=== PATIENT | female | born 1945 | race Caucasian/White ===

== ENCOUNTER 2019-04-21 13:27 | Inpatient (IN) | payer OTHER ==
--- NOTE | 2019-04-21 14:22 | RAD REPORT ---
EXAM DESCRIPTION: RAD - Chest Single View - 04/21/2019 2:03 pm CLINICAL HISTORY: Cough, altered mental status COMPARISON: May 2010 TECHNIQUE: AP portable chest image was obtained 1357 hours . FINDINGS: Lung volumes are low compared to the prior study. This accentuates lung markings. Strandin g in the left base is more likely atelectasis than infiltrate. Failure or volume overload are doubtfu l. Heart and vasculature are normal. No measurable pleural effusion and no pneumothorax. No acute bony abnormality seen. No acute aortic findings suspected. IMPRESSION: Shallow inspiration film with left lung base stranding favored to be atelectasis. Interstitial pattern is accentuated by shallow inspiration. No significant edema, failure or volume o verload suspected.
[2019-04-21 14:37] LABS: Barbiturates NEGATIVE (NEGATIVE); Benzodiazepines NEGATIVE (NEGATIVE); Cocaine NEGATIVE (NEGATIVE); METHAMPHETAM NEGATIVE (NEGATIVE); Methadone NEGATIVE (NEGATIVE); Opiates NEGATIVE (NEGATIVE); Phencyclidine NEGATIVE (NEGATIVE); THC Cannibis NEGATIVE (NEGATIVE)
[2019-04-21 14:37] LABS: Urine Blood 2+ (NEG); Urine Glucose NEGATIVE (NEG); Urine Protein 2+ (NEG); Urine Specific Gravity 1.025 (1.005-1.030); Urine pH 5.5 (5.0-7.0)
--- NOTE | 2019-04-21 14:38 | RAD REPORT ---
EXAM DESCRIPTION: CT - Head Brain Wo Cont - 04/21/2019 2:32 pm CLINICAL HISTORY: Transient alteration of awareness COMPARISON: None. TECHNIQUE: Axial 5 mm thick images of the head were obtained without IV contrast. All CT scans are performed using dose optimization technique as appropriate and may include automated exposure control or mA/KV adjustment according to patient size. FINDINGS: No intracranial hemorrhage, mass, edema or shift of mid-line structures. No acute infarcti on changes seen. Mild chronic ischemic change and mild to moderate atrophy changes are present. Ventr icles are in proportion. Mastoid air cells and visualized portions of the paranasal sinuses are clear. No acute bony findings. IMPRESSION: No acute intracranial finding. Atrophy and chronic ischemic changes are present.
[2019-04-21 14:46] LABS: Absolute Lymphocytes (CBC) 1.8 K/uL (0.7-4.9); Basophils % 0.7 % (0-1.3); Hematocrit 38.5 % (36.0-45.0); Lymphocytes % 11.8 % (15.3-44.8); MPV 8.3 fL (7.6-11.3); RBC Red Blood Cell Count 4.27 M/uL (3.86-4.86)
[2019-04-21] MEDS ORDERED: THIAMINE 200 MG/2 ML INJ ONE (14:46)
[2019-04-21] MEDS ORDERED: CEFTRIAXONE/SWI 1gm 1 GM/10 ML SYR ONE (14:47)
[2019-04-21] MEDS ORDERED: FOLIC ACID 5 MG/ML VIAL ONE (14:47)
[2019-04-21] MEDS ORDERED: NA CHLORIDE 0.9% 1,000 ML ONE (14:47)
[2019-04-21 14:57] LABS: Protime INR 1.2
[2019-04-21 15:00] LABS: Urine Bacteria >50 /HPF (<20); Urine Culture Reflex Order NOT NEEDED; Urine Mucus 1+ /HPF (NONE SEEN)
[2019-04-21 15:06] LABS: ALT/SGPT 45 U/L (12-78); AST/SGOT 37 U/L (15-37); Albumin 2.9 g/dL (3.4-5.0); Alkaline Phosphatase 359 U/L (45-117); BUN Blood Urea Nitrogen 28 mg/dL (7-18); Bicarbonate 25 mmol/L (21-32); Bilirubin Direct 0.5 mg/dL (0-0.2); Bilirubin Total 0.9 mg/dL (0.2-1.0); Glucose Level 119 mg/dL (74-106); Magnesium 2.5 mg/dL (1.8-2.4); NT PRO-BNP 132 pg/mL (<125); Protein, Total 8.4 g/dL (6.4-8.2); Sodium Level 145 mmol/L (136-145); Troponin (Emerg Dept Use Only) < 0.02 ng/mL (0.0-0.045)
--- NOTE | 2019-04-21 16:07 | ER ---
Nurse's Notes [facility] Name: Haritha Mensah Age: 73 yrs Sex: Female : 1945 Arrival Date: 04/21/2019 Time: 13:28 Bed 20 Private MD: Mian Stuart E Diagnosis: Altered mental status, unspecified;Urinary tract infection, site not specified;Elevated white blood cell count;Pneumonia, unspecified organism-left base;Weakness;Volume depletion Presentation: 04/21 13:41 Presenting complaint: Child states: pt has had a change in behavior and mental status sg starting over the weekend, pt sister is primary development officer and states that the patient has been acting different since Thursday evening, pt has been solemn, unsure if the pt is taking too much of her medication, pt takes risperidone and trazadone PO at home. Transition of care: patient was not received from another setting of care. Onset of symptoms was April 21, 2019. Risk Assessment: Do you want to hurt yourself or someone else? Patient reports no desire to harm self or others. Initial Sepsis Screen: Does the patient meet any 2 criteria? No. Patient's initial sepsis screen is negative. Does the patient have a suspected source of infection? No. Patient's initial sepsis screen is negative. Care prior to arrival: None. 13:41 Method Of Arrival: Ambulatory sg 13:41 Acuity: OFE 3 sg Triage Assessment: 13:45 General: Appears in no apparent distress. comfortable, Behavior is calm, cooperative. bp Pain: Denies pain. EENT: No deficits noted. Neuro: Level of Consciousness is awake, alert, obeys commands, Oriented to person. Cardiovascular: Rhythm is sinus rhythm. Respiratory: No deficits noted. GI: No signs and/or symptoms were reported involving the gastrointestinal system. : No signs and/or symptoms were reported regarding the genitourinary system. Derm: No deficits noted. Musculoskeletal: No deficits noted. Historical: - Allergies: 13:45 No Known Allergies; sg - Home Meds: 13:45 Trazodone Oral [Active]; risperidone oral oral [Active]; sg - PSHx: 13:45 None; sg - Immunization history:: Adult Immunizations not up to date. - Social history:: Smoking status: Patient/guardian denies using tobacco. - Ebola Screening: : Patient negative for fever greater than or equal to 101.5 degrees Fahrenheit, and additional compatible Ebola Virus Disease symptoms Patient denies exposure to infectious person Patient denies travel to an Ebola-affected area in the 21 days before illness onset No symptoms or risks identified at this time. - Family history:: not pertinent. Screenin:55 Abuse screen: Denies threats or abuse. Denies injuries from another. Nutritional bp screening: No deficits noted. Tuberculosis screening: No symptoms or risk factors identified. Fall Risk None identified. Assessment: 13:55 General: SEE TRIAGE NOTE. bp 14:32 Reassessment: PT TO CT WITH HEAD OF MARKETING ANALYTICS. bp 16:00 Reassessment: ALL INITIAL ORDERS RESULTED, PROVIDER INFORMED. bp 17:00 Reassessment: ADMIT IN PROCESS, ABX INFUSING. bp 18:04 Reassessment: ADMIT MD AT B/S. bp 19:45 General: Appears in no apparent distress. comfortable, Behavior is calm, cooperative, jd3 awaiting admission. Pain: Denies pain. Neuro: Level of Consciousness is awake, alert, confused, Oriented to person, place. Cardiovascular: Denies chest pain, Capillary refill < 3 seconds Patient's skin is warm and dry. Respiratory: Airway is patent Respiratory effort is even, unlabored, Respiratory pattern is regular, symmetrical, Denies cough, shortness of breath. GI: No signs and/or symptoms were reported involving the gastrointestinal system. : No signs and/or symptoms were reported regarding the genitourinary system. EENT: No signs and/or symptoms were reported regarding the EENT system. Derm: Skin is intact, Skin is dry, Skin is normal, Skin temperature is warm. Musculoskeletal: Circulation, motion, and sensation intact. Range of motion: intact in all extremities. 20:49 Reassessment: Patient appears in no apparent distress at this time. No changes from jd3 previously documented assessment. Patient and/or family updated on plan of care and expected duration. Pain level reassessed. 21:45 Reassessment: Patient appears in no apparent distress at this time. No changes from jd3 previously documented assessment. Patient and/or family updated on plan of care and expected duration. Pain level reassessed. 22:45 Reassessment: Patient appears in no apparent distress at this time. No changes from jd3 previously documented assessment. Patient and/or family updated on plan of care and expected duration. Pain level reassessed. 23:04 Reassessment: Patient appears in no apparent distress at this time. No changes from jd3 previously documented assessment. Patient and/or family updated on plan of care and expected duration. Pain level reassessed. pt charting continued in [facility]. Vital Signs: 13:41 BP 142 / 77; Pulse 87; Resp 18; Temp 98.7; Pulse Ox 100% on R/A; sg 14:31 BP 148 / 80; Pulse 61; Resp 17; Pulse Ox 97% ; bp 15:30 BP 157 / 77; Pulse 99; Resp 16; Pulse Ox 98% ; bp 18:03 BP 140 / 73; Pulse 102; Resp 16 S; Pulse Ox 96% on R/A; jl7 20:02 BP 143 / 67; Pulse 100; Resp 18 S; Pulse Ox 97% on R/A; jd3 ED Course: 13:28 Patient arrived in ED. am2 13:29 Mian Stuart MD is Private Physician. am2 13:38 Milton Alberts MD is Attending Physician. silvia 13:41 Arm band placed on. sg 13:42 Rick Bowen, RN is Primary Nurse. bp 13:43 Triage completed. sg 13:55 Patient has correct armband on for positive identification. Bed in low position. Call bp light in reach. Side rails up X2. Adult w/ patient. 14:03 XRAY Chest (1 view) In Process Unspecified. EDMS 14:03 X-ray completed. Portable x-ray completed in exam room. Patient tolerated procedure jb2 well. 14:24 EKG done, by ED staff, reviewed by Milton Alberts MD. tc 14:30 Inserted saline lock: 22 gauge in right forearm, using aseptic technique. Blood bp collected. 14:32 CT Head Brain wo Cont In Process Unspecified. EDMS 16:03 Mary Baig MD is Hospitalizing Provider. silvia 23:03 No provider procedures requiring assistance completed. Patient admitted, IV remains in jd3 place. 04/22 06:53 Primary Nurse role handed off by Rick Bowen, RN 09:50 Diet: Patient given a regular meal tray. 5 Administered Medications: 04/21 14:30 Drug: NS 0.9% 1000 ml Route: IV; Rate: 1 bolus; Site: right forearm; bp 23:45 Follow up: Response: No adverse reaction; IV Status: Completed infusion 14:30 Drug: foLIC Acid 1 mg Route: IVPB; Site: right forearm; bp 23:45 Follow up: Response: No adverse reaction; IV Status: Completed infusion 14:30 Drug: Thiamine 100 mg Route: IV; Rate: bolus; Site: right forearm; bp 23:45 Follow up: Response: No adverse reaction; IV Status: Completed infusion 14:30 Drug: Rocephin 1 grams Route: IV; Rate: per protocol; Site: right forearm; bp 23:44 Follow up: Response: No adverse reaction; IV Status: Completed infusion 16:10 Drug: Xopenex 1.25 mg Route: Inhalation; bp 16:10 Drug: AtroVENT Aerosol 0.5 mg Route: Inhalation; bp 16:50 Drug: Zithromax 500 mg Route: IVPB; Infused Over: 1 hrs; Site: right forearm; bp 23:39 Follow up: Response: No adverse reaction; IV Status: Completed infusion Outcome: 16:06 Decision to Hospitalize by Provider. silvia 23:03 Admitted to ER Hold. Please see [facility] for further documentation. jd3 23:03 Condition: stable 23:03 Instructed on the need for admit, Demonstrated understanding of instructions. 04/22 12:40 Patient left the ED. Signatures: Dispatcher [employer] EDMS Zacarias Sanders, RN Milton Conde MD MD cha Buechter, Jesse jb2 Gretel Roberston, automotive tire worker EKG Ttc Miladis Schilling RN RN Sophie Cadlwell [facility] Shelly Rg RN RN jl7 Xiomara Rivas Caitlin Guillory Valerio Figueroa RN RN jd3 Peltier, Brian, RN RN bp Botello, Elizabeth eb Corrections: (The following items were deleted from the chart) 03:46 04/21 19:45 Neuro: Level of Consciousness is awake, alert, confused, Oriented to jd3 person, jd3
--- NOTE | 2019-04-21 16:07 | EDPHYS ---
Physician Documentation [facility] Name: Haritha Mensah Age: 73 yrs Sex: Female : 1945 Arrival Date: 04/21/2019 Time: 13:28 Bed 20 Private MD: Mian Stuart E ED Physician Milton Alberts HPI: 04/21 14:18 This 73 yrs old Female presents to ER via Ambulatory with complaints of silvia behavioral change. 14:18 ams, weakness. The patient presents with confusion, trouble concentrating. Onset: The silvia symptoms/episode began/occurred 2 day(s) ago. Possible causes: unknown. Associated signs and symptoms: The patient has no apparent associated signs or symptoms. Current symptoms: In the emergency department the patient's symptoms are unchanged from the initial presentation. Patient's baseline: Neuro: alert and fully oriented. Severity of symptoms: At their worst the symptoms were mild moderate in the emergency department the symptoms are unchanged. Historical: - Allergies: 13:45 No Known Allergies; sg - Home Meds: 13:45 Trazodone Oral [Active]; risperidone oral oral [Active]; sg - PSHx: 13:45 None; sg - Immunization history:: Adult Immunizations not up to date. - Social history:: Smoking status: Patient/guardian denies using tobacco. - Ebola Screening: : Patient negative for fever greater than or equal to 101.5 degrees Fahrenheit, and additional compatible Ebola Virus Disease symptoms Patient denies exposure to infectious person Patient denies travel to an Ebola-affected area in the 21 days before illness onset No symptoms or risks identified at this time. - Family history:: not pertinent. ROS: 14:18 Constitutional: Negative for fever, chills, and weight loss, Eyes: Negative for injury, silvia pain, redness, and discharge, ENT: Negative for injury, pain, and discharge, Neck: Negative for injury, pain, and swelling, Cardiovascular: Negative for chest pain, palpitations, and edema, Respiratory: Negative for shortness of breath, cough, wheezing, and pleuritic chest pain, Abdomen/GI: Negative for abdominal pain, nausea, vomiting, diarrhea, and constipation, Back: Negative for injury and pain, : Negative for injury, bleeding, discharge, and swelling, MS/Extremity: Negative for injury and deformity, Skin: Negative for injury, rash, and discoloration, Psych: Negative for depression, anxiety, suicide ideation, homicidal ideation, and hallucinations, Allergy/Immunology: Negative for hives, rash, and allergies, Endocrine: Negative for neck swelling, polydipsia, polyuria, polyphagia, and marked weight changes. 14:18 Neuro: Positive for altered mental status, weakness. Exam: 14:18 Constitutional: This is a well developed, well nourished patient who is awake, alert, silvia and in no acute distress. Head/Face: Normocephalic, atraumatic. Eyes: Pupils equal round and reactive to light, extra-ocular motions intact. Lids and lashes normal. Conjunctiva and sclera are non-icteric and not injected. Cornea within normal limits. Periorbital areas with no swelling, redness, or edema. ENT: Nares patent. No nasal discharge, no septal abnormalities noted. Tympanic membranes are normal and external auditory canals are clear. Oropharynx with no redness, swelling, or masses, exudates, or evidence of obstruction, uvula midline. Mucous membranes moist. Neck: Trachea midline, no thyromegaly or masses palpated, and no cervical lymphadenopathy. Supple, full range of motion without nuchal rigidity, or vertebral point tenderness. No Meningismus. Chest/axilla: Normal chest wall appearance and motion. Nontender with no deformity. No lesions are appreciated. Cardiovascular: Regular rate and rhythm with a normal S1 and S2. No gallops, murmurs, or rubs. Normal PMI, no JVD. No pulse deficits. Respiratory: Lungs have equal breath sounds bilaterally, clear to auscultation and percussion. No rales, rhonchi or wheezes noted. No increased work of breathing, no retractions or nasal flaring. Abdomen/GI: Soft, non-tender, with normal bowel sounds. No distension or tympany. No guarding or rebound. No evidence of tenderness throughout. Back: No spinal tenderness. No costovertebral tenderness. Full range of motion. Skin: Warm, dry with normal turgor. Normal color with no rashes, no lesions, and no evidence of cellulitis. MS/ Extremity: Pulses equal, no cyanosis. Neurovascular intact. Full, normal range of motion. Neuro: Awake and alert, GCS 15, oriented to person, place, time, and situation. Cranial nerves II-XII grossly intact. Motor strength 5/5 in all extremities. Sensory grossly intact. Cerebellar exam normal. Normal gait. Psych: Awake, alert, with orientation to person, place and time. Behavior, mood, and affect are within normal limits. Vital Signs: 13:41 BP 142 / 77; Pulse 87; Resp 18; Temp 98.7; Pulse Ox 100% on R/A; sg 14:31 BP 148 / 80; Pulse 61; Resp 17; Pulse Ox 97% ; bp 15:30 BP 157 / 77; Pulse 99; Resp 16; Pulse Ox 98% ; bp 18:03 BP 140 / 73; Pulse 102; Resp 16 S; Pulse Ox 96% on R/A; jl7 20:02 BP 143 / 67; Pulse 100; Resp 18 S; Pulse Ox 97% on R/A; jd3 MDM: 13:38 Patient medically screened. [facility] 14:25 Data reviewed: vital signs, nurses notes, lab test result(s), EKG, radiologic studies, [facility] CT scan, plain films. 04/21 13:40 Order name: Basic Metabolic Panel; Complete Time: 15:59 [facility] 04/21 13:40 Order name: CBC with Diff; Complete Time: 15:59 [facility] 04/21 13:40 Order name: LFT's; Complete Time: 15:59 [facility] 04/21 13:40 Order name: Magnesium; Complete Time: 15:59 [facility] 04/21 13:40 Order name: NT PRO-BNP; Complete Time: 15:59 [facility] 04/21 13:40 Order name: PT-INR; Complete Time: 15:59 [facility] 04/21 13:40 Order name: Troponin (emerg Dept Use Only); Complete Time: 15:59 [facility] 04/21 13:40 Order name: Acetaminophen; Complete Time: 15:59 [facility] 04/21 13:40 Order name: ETOH Level; Complete Time: 15:59 [facility] 04/21 13:40 Order name: Ptt, Activated; Complete Time: 15:59 [facility] 04/21 13:40 Order name: Salicylate; Complete Time: 15:59 [facility] 04/21 13:40 Order name: Urine Drug Screen; Complete Time: 15:59 [facility] 04/21 13:40 Order name: Urine Culture [facility] 04/21 14:12 Order name: Urine Microscopic Only; Complete Time: 15:59 04/21 13:40 Order name: XRAY Chest (1 view); Complete Time: 15:59 [facility] 04/21 13:40 Order name: EKG; Complete Time: 13:41 [facility] 04/21 13:40 Order name: CT Head Brain wo Cont; Complete Time: 15:59 [facility] 04/21 14:29 Order name: Urine Dipstick--Ancillary (enter results); Complete Time: 15:59 eb 04/22 06:01 Order name: Basic Metabolic Panel EDMD 04/22 06:32 Order name: Blood Culture EDMD 04/22 06:41 Order name: CBC with Automated Diff EDMS 04/22 06:44 Order name: CBC Smear Scan EDMD 04/22 10:06 Order name: Magnesium EDMD 04/21 13:40 Order name: Cardiac monitoring; Complete Time: 14:30 [facility] 04/21 13:40 Order name: EKG - Nurse/Tech; Complete Time: 14:30 [facility] 04/21 13:40 Order name: IV Saline Lock; Complete Time: 14:31 [facility] 04/21 13:40 Order name: Labs collected and sent; Complete Time: 14:31 [facility] 04/21 13:40 Order name: O2 Per Protocol; Complete Time: 13:43 [facility] 04/21 13:40 Order name: O2 Sat Monitoring; Complete Time: 13:43 [facility] 04/21 13:40 Order name: Urine Dipstick-Ancillary (obtain specimen); Complete Time: 14:30 [facility] 04/22 06:53 Order name: Labs - recollect needed: green top recollect; Complete Time: 09:34 ar5 Administered Medications: 14:30 Drug: NS 0.9% 1000 ml Route: IV; Rate: 1 bolus; Site: right forearm; bp 23:45 Follow up: Response: No adverse reaction; IV Status: Completed infusion 14:30 Drug: foLIC Acid 1 mg Route: IVPB; Site: right forearm; bp 23:45 Follow up: Response: No adverse reaction; IV Status: Completed infusion 14:30 Drug: Thiamine 100 mg Route: IV; Rate: bolus; Site: right forearm; bp 23:45 Follow up: Response: No adverse reaction; IV Status: Completed infusion 14:30 Drug: Rocephin 1 grams Route: IV; Rate: per protocol; Site: right forearm; bp 23:44 Follow up: Response: No adverse reaction; IV Status: Completed infusion 16:10 Drug: Xopenex 1.25 mg Route: Inhalation; bp 16:10 Drug: AtroVENT Aerosol 0.5 mg Route: Inhalation; bp 16:50 Drug: Zithromax 500 mg Route: IVPB; Infused Over: 1 hrs; Site: right forearm; bp 23:39 Follow up: Response: No adverse reaction; IV Status: Completed infusion Disposition: 04/21/19 16:06 Hospitalization ordered by Mary Baig for Inpatient Admission. Preliminary diagnosis are Altered mental status, unspecified, Urinary tract infection, site not specified, Elevated white blood cell count, Pneumonia, unspecified organism - left base, Weakness, Volume depletion. - Bed requested for Telemetry/MedSurg (Inpatient). - Status is Inpatient Admission. hb - Condition is Fair. - Problem is new. - Symptoms have improved. UTI on Admission? Yes Signatures: Dispatcher [employer] EDMS Zacarias Sanders RN RN Milton Alberts MD MD cha Garcia, Cindy, RN RN Miladis Schilling RN RN hb Peltier, Brian, RN RN Sarah Vazquez Autumn [employer] [facility] Caitlin Neely Corrections: (The following items were deleted from the chart) 16:07 16:06 Hospitalization Ordered by Mary Baig MD for Inpatient Admission. Preliminary [facility] diagnosis is Altered mental status, unspecified; Urinary tract infection, site not specified; Elevated white blood cell count; Pneumonia, unspecified organism - left base. Bed requested for Telemetry/MedSurg (Inpatient). Status is Inpatient Admission. Condition is Fair. Problem is new. Symptoms have improved. UTI on Admission? Yes. [facility] 22:04 16:07 04/21/2019 16:06 Hospitalization Ordered by Mary Baig MD for Inpatient cg Admission. Preliminary diagnosis is Altered mental status, unspecified; Urinary tract infection, site not specified; Elevated white blood cell count; Pneumonia, unspecified organism - left base; Weakness; Volume depletion. Bed requested for Telemetry/MedSurg (Inpatient). Status is Inpatient Admission. Condition is Fair. Problem is new. Symptoms have improved. UTI on Admission? Yes. silvia 04/22 11:25 04/21 22:04 04/21/2019 16:06 Hospitalization Ordered by Mary Baig MD for Inpatient eb Admission. Preliminary diagnosis is Altered mental status, unspecified; Urinary tract infection, site not specified; Elevated white blood cell count; Pneumonia, unspecified organism - left base; Weakness; Volume depletion. Bed requested for [facility] ER HOLD. Status is Inpatient Admission. Condition is Fair. Problem is new. Symptoms have improved. UTI on Admission? Yes. cg 04/22 11:25 11:25 04/21/2019 16:06 Hospitalization Ordered by Mary Baig MD for Inpatient eb Admission. Preliminary diagnosis is Altered mental status, unspecified; Urinary tract infection, site not specified; Elevated white blood cell count; Pneumonia, unspecified organism - left base; Weakness; Volume depletion. Bed requested for Telemetry/MedSurg (Inpatient). Status is Inpatient Admission. Condition is Fair. Problem is new. Symptoms have improved. UTI on Admission? Yes. eb 12:40 11:25 04/21/2019 16:06 Hospitalization Ordered by Mary Baig MD for Inpatient hb Admission. Preliminary diagnosis is Altered mental status, unspecified; Urinary tract infection, site not specified; Elevated white blood cell count; Pneumonia, unspecified organism - left base; Weakness; Volume depletion. Bed requested for Telemetry/MedSurg (Inpatient). Status is Inpatient Admission. Condition is Fair. Problem is new. Symptoms have improved. UTI on Admission? Yes. eb
[2019-04-21] MEDS ORDERED: IPRATROPIUM BROM 0.5MG/2.5ML ONE (16:13)
[2019-04-21] MEDS ORDERED: LEVALBUTEROL 1.25 MG/3 ML NEB ONE (16:13)
[2019-04-21] MEDS ORDERED: AZITHROMYCIN IV 500 MG in NA CHLORIDE 0.9% 250 ML IVPB ONE (17:00)
--- NOTE | 2019-04-21 17:11 | EKG ---
Test Date: 2019-04-21 Test Time: 14:06:35 Composing Room Machinist Apprentice: NUHA MEASUREMENT RESULTS: Intervals: Rate: 111 WY: 164 QRSD: 70 QT: 324 QTc: 440 [place]: P: 69 WY: 164 QRS: 87 T: 55 INTERPRETIVE STATEMENTS: Sinus tachycardia with occasional premature ventricular complexes RSR' or QR pattern in V1 suggests right ventricular conduction delay Borderline ECG Compared to ECG 05/26/2010 12:18:53 Ventricular premature complex(es) now present RSR' in V1 or V2 now present Sinus rhythm no longer present First degree AV block no longer present Right-axis deviation no longer present Electronically Signed On 04-21-19 17:10:51 MANAGER SITE by Sherman Benito
[2019-04-21] MEDS: NA CHLORIDE 0.9% 1,000 ML IV SCH (23:42)
[2019-04-21] MEDS ORDERED: ONDANSETRON 4 MG/2 ML VIAL IV PRN (23:42)
[2019-04-22] MEDS ORDERED: NA CHLORIDE 0.9% 1,000 ML ONE ×2 (00:47→13:09)
--- NOTE | 2019-04-22 02:04 | HP ---
Date of Admission: 04/21/2019 Consultants: Cj Cooper DPM with Podiatry. Chief Complaint: Altered mental status, generalized weakness. Code Status: Full. Primary Care Physician: Dr. Stuart. History Of Present Illness: Patient is a 73-year-old female with past medical history of insomnia and psychiatric illness in the past, comes in with generalized weakness, decreased p.o. intake and confusion. Patient was not eating her breakfast, had not gotten out of bed, felt weak, usually very active , independent, and walks to the yard, has been ongoing for the past 2 days. The patient's symptoms are constant, moderate, progressively worsening. Patient has not had any syncopal episodes. No fever, chills, nausea, or vomiting. Patient does report some generalized malaise, is very hard of hearing. Lives with her daughter. Does not use any assistive ambulatory devices. Does not have any falls. Upon arrival to the ER, her workup revealed UA that was positive. Her white blood cell count was 15,000. Her head CT scan was negative for any acute changes. Her chest x-ray showed left lung base stranding favored to be atelectasis. The patient was started on IV antibiotics and was referred for admission. When seen in the ER, she was awake, alert, and oriented x3, somewhat ill-appearing female, accompanied by her family members. Past Medical History: Insomnia, hard of hearing, hearing loss. Previous psych history, unclear, is on Risperdal. Past Surgical History: Bilateral hip replacements. Allergies: NO KNOWN DRUG ALLERGIES. Medications: The patient takes trazodone 50 mg daily and Risperdal 1 mg nightly. Social History: Patient denies any tobacco use, alcohol use, or illicit drug use. Patient is independent in her activities of daily living, does not use any assistive ambulatory devices. Lives with her daughter. Family History: No premature coronary artery disease in the family. Review of Systems: Ten-point system reviewed, negative except as per HPI. Physical Examination: Vital Signs: Blood pressure 142/77, pulse 88, respirations 18, temperature 98.7 , O2 100% on room air. General: Awake, alert, and oriented x3, in some mild distress, ill-appearing elderly female. HEENT: Normocephalic, atraumatic. PERRLA. EOMI. Dry mucous membranes. Oropharynx is clear. Poor dentition. Conjunctivae are anicteric. Neck: Supple. No JVD. Trachea midline. CV: S1, S2. Regular rate and rhythm. Peripheral pulses present. Respiratory: Diminished breath sounds at the bases, left worse than right. No wheezing or stridor. No use of accessory muscles. Gastrointestinal: Abdomen is soft, nontender, nondistended. Positive bowel sounds. No guarding or rigidity. Extremities: No clubbing, cyanosis. Patient has trace pedal edema. No calf tenderness. Neuro: Cranial nerves 2 through 12 intact grossly. No focal neurological deficit. Speech is somewhat altered, however, that is at her baseline. Skin: Patient has excoriated skin in the lower extremities. Has mild erythema and ulceration of the second right toe, likely from chronic abrasion from her first toenail. No tenderness to palpation. Psych: Mood is okay. Affect is full. Insight and judgment are good. Laboratory Data: INR 1.20. Sodium 145, potassium 4, chloride 113, CO2 of 25, BUN 28, creatinine 0.92, glucose 119, calcium 8.5, magnesium 2.5, alkaline phosphatase 359. Troponin less than 0.02. BNP 132. WBC 15.2, H and H 12.7 and 38.5, platelets 269, neutrophils 76%. UA, positive nitrite, 1+ leukocyte esterase, 5-10 rbc's, 10-20 wbc. Urine bacteria greater than 50, 10-20 squamous epithelial cells. UDS is negative. Tylenol level is less than 2. Imaging Studies: CT scan of the head shows no acute intracranial finding, atrophy and chronic ischemic changes are present. Chest x-ray personally reviewed shows shallow inspiration film with left lung base stranding favored to be atelectasis. Interstitial pattern is accentuated by shallow inspiration. No significant edema, failure, or volume overload pattern. EKG shows sinus tachycardia with occasional premature ventricular complexes, rate of 111. Assessment: A 73-year-old female with, 1. Acute metabolic encephalopathy, likely related to urinary tract infection. Patient is oriented, however was somewhat confused and lethargic at home. Should see improvement with treatment of the underlying etiology, which is the urinary tract infection. Her head CT scan is negative for any acute bleed or cerebrovascular accident. 2. Acute cystitis with hematuria. We will start her on IV antibiotics. We will obtain urine culture. 3. Left lower lobe pneumonia. We will cover with antibiotics for now, may be acute bronchitis. We will obtain blood cultures. Chest x-ray favors atelectasis. We will provide incentive spirometry as well. De-escalate antibiotics once cultures are negative. 4. Insomnia. Continue trazodone. 5. Bilateral hearing loss. 6. Leukocytosis with neutrophilia, likely from urinary tract infection and possible pneumonia. 7. Hypermagnesemia. We will continue to monitor. Plan: Admit patient to Med-Surg, place as inpatient. Length of stay greater than 2 midnights. We will have PT see the patient. Aspiration precautions, fall precautions, O2 as needed. We will resume her Risperdal at night. /EMERALD Voice ID: [id number] MTDD
[2019-04-22] MEDS ORDERED: CEFTRIAXONE/SWI 1gm 1 GM/10 ML SYR ONE (04:44)
[2019-04-22] MEDS: CEFTRIAXONE/SWI 1gm 1 GM/10 ML SYR IV SCH ×2 (04:53→17:34)
[2019-04-22 06:01] LABS: Potassium 4.2 mmol/L (3.5-5.1)
[2019-04-22 06:16] LABS: Absolute Lymphocytes (CBC) 1.6 K/uL (0.7-4.9); Basophils % 0.7 % (0-1.3); Lymphocytes % 11.5 % (15.3-44.8)
[2019-04-22 06:41] LABS: Urine White Blood Cell Casts OK
[2019-04-22 06:42] LABS: Blood Morphology Comment NOT SEEN (NOT SEEN); Platelet Estimate ADEQ
[2019-04-22] MEDS ORDERED: PNEUMOCOCCAL VACCINE 0.5 ML IMVAC ONE (08:00)
[2019-04-22] MEDS ORDERED: INFLUENZA VACCINE (for 3y+) 0.5 ML DOSE IMVAC ONE (08:00)
[2019-04-22] MEDS ORDERED: ENOXAPARIN 40 MG/0.4 ML SQ ONE (08:40)
--- NOTE | 2019-04-22 08:59 | P.CNS ---
Date of Consult: 04/22/19 Reason for Consult: wound right second digit Requesting Physician: Mary Baig Chief Complaint: right second digit wound with thickened toenails Allergies No Known Allergies Allergy (Verified 04/21/19 23:40) Home medications list reviewed: Yes - Past Medical/Surgical History Diabetic: No -: Dementia - Social History Place of Residence: Home Review of Systems 10-point ROS is otherwise unremarkable Physical Examination Temp Pulse Resp BP Pulse Ox 99.2 F 87 16 144/68 H 97 04/22/19 08:00 04/22/19 08:00 04/22/19 08:00 04/22/19 08:00 04/22/19 08:00 General: Alert, In no apparent distress, Oriented x3 Cardiovascular: No edema, Abnormal pulses (palpable dorsalis pedis, nonpalpable posterior tibial pulse bilateral) Capillary refill: <2 Seconds Musculoskeletal: No clubbing, No swelling, No contractures, No erythema, No tenderness, No warmth Integumentary: Other (thickened elongated toenails with subungual debris x 10. Superficial ulceration dorsum right second digit due to right hallux toenail rubbing on the area. Wound has no purulence, mild erythema periwound, no probing, no undermining noted) Neurological: Sensation intact Laboratory Data (last 24 hrs) 04/21/19 14:30: PT 14.1 H, INR 1.20, APTT 30.5 04/21/19 14:30: WBC 15.2 H, Hgb 12.7, Hct 38.5, Plt Count 269 04/21/19 14:30: Sodium 145, Potassium 4.0, BUN 28 H, Creatinine 0.92, Glucose 119 H, Magnesium 2.5 H, Total Bilirubin 0.9, AST 37, ALT 45, Alkaline Phosphatase 359 H - Problems (1) Tinea unguium Current Visit: Yes Status: Acute (2) Non-pressure chronic ulcer of other part of right foot limited to breakdown of skin Current Visit: Yes Status: Acute Conclusions/Impression: Nails debrided at bedside. ROBYN with bandage daily right second digit wound. Upon discharge patient to follow up with Dr. Cooper for onychomycosis treatment and wound care Physician Review: Patient Assessed, Agree with Above Assessment and Plan
[2019-04-22] MEDS: ENOXAPARIN 40 MG/0.4 ML SQ SCH (09:00)
[2019-04-22] MEDS: NA CHLORIDE 0.9% 1,000 ML IV SCH (13:35)
[2019-04-22] MEDS: ACETAMINOPHEN 500 MG TAB PO PRN ×2 (14:23→21:12)
[2019-04-22] MEDS ORDERED: TRAMADOL HCL 50 MG TAB PO PRN (15:14)
--- NOTE | 2019-04-22 16:49 | PN ---
Date of Progress Note: 04/22/2019 Subjective: Patient seen and examined. Chart reviewed and case discussed with RN. Patient states s he is feeling better today. No acute events overnight. Daughter at the bedside. Treatment plan exp lained. All questions answered. Medications: List reviewed. Physical Examination: Vital Signs: Temperature 99.2, heart rate 87, blood pressure 144/68, respirations 16, O2 97% on room air. General: Awake, alert, oriented x3, not in any acute distress. Ill-appearing female, elderly. CV: S1, S2. Regular rate and rhythm. Peripheral pulses present. Respiratory: Moving air well bilaterally. No wheezing or stridor. No use of accessory muscles. Gastrointestinal: Abdomen is soft, nontender, nondistended. Positive bowel sounds. Extremities: No clubbing, cyanosis. Patient has some mild pedal edema. Neurologic: Nonfocal. Cranial nerves 2 through 12 intact grossly. Speech is altered, but is chroni c. No acute changes. Skin: Patient has non-pressure ulcer of the second toe, right foot with some mild surrounding erythe ma. No drainage. Musculoskeletal: Tenderness to palpation on the left bottom rib. Laboratory Data: Sodium 143, potassium 4.2, chloride 116, CO2 20, BUN 26, creatinine 0.73, glucose 9 5, calcium 8.6, magnesium 2.4. WBC 14.1, H and H 13.4 and 41, platelets 225, neutrophils 77%. Blood cultures, no growth to date. Sputum cultures, pending. Urine culture, growing 100,000 colony-formi ng units of mixed oz. Assessment And Plan: 73-year-old female with: 1.Acute metabolic encephalopathy secondary to urinary tract infection. Patient now back to her base line and oriented x3, likely secondary to her urinary tract infection. 2.Acute cystitis with hematuria. We will continue IV antibiotics. Culture showed mixed oz. How ever, given her presenting symptoms, elevated white blood cell count, we will continue with treatment for now and await final culture results. 3.Left lower lobe pneumonia. Continue antibiotics. Follow up on cultures. No growth to date. Rep eat chest x-ray in a.m. Continue with incentive spirometry. 4.Hypomagnesemia, improved. 5.Insomnia. Continue trazodone. 6.Bilateral hearing loss. 7.Hypomagnesemia, corrected. 8.Deep vein thrombosis prophylaxis with Lovenox. Plan: Continue IV fluid hydration. Continue with PT eval. Likely discharge in the next 24-48 hours , depending on clinical response, culture results and improvement. SA/MODL Voice ID: [id number] Report ID: [id number]
[2019-04-22] MEDS ORDERED: AZITHROMYCIN IV 500 MG in NA CHLORIDE 0.9% 250 ML IVPB SCH (17:00)
[2019-04-22] MEDS ORDERED: RISPERIDONE 1 MG TABLET PO SCH ×2 (17:30→21:00)
[2019-04-22] MEDS ORDERED: TRAZODONE 50 MG TABLET PO SCH ×2 (17:30→21:00)
[2019-04-22 17:42] VITALS: BMI 24.9
[2019-04-22 21:18] VITALS: O2SAT 92
[2019-04-23] MEDS: NA CHLORIDE 0.9% 1,000 ML IV SCH (04:48)
[2019-04-23] MEDS: CEFTRIAXONE/SWI 1gm 1 GM/10 ML SYR IV SCH (05:00)
[2019-04-23 06:18] LABS: Absolute Lymphocytes (CBC) 1.6 K/uL (0.7-4.9); Basophils % 0.5 % (0-1.3); Hematocrit 38.4 % (36.0-45.0); Lymphocytes % 11.9 % (15.3-44.8); MPV 8.3 fL (7.6-11.3); RBC Red Blood Cell Count 4.22 M/uL (3.86-4.86)
[2019-04-23 06:27] LABS: BUN Blood Urea Nitrogen 22 mg/dL (7-18); Bicarbonate 24 mmol/L (21-32); Glucose Level 94 mg/dL (74-106); Potassium 3.7 mmol/L (3.5-5.1); Sodium Level 145 mmol/L (136-145)
[2019-04-23] MEDS: ENOXAPARIN 40 MG/0.4 ML SQ SCH (08:46)
[2019-04-23] MEDS ORDERED: POTASSIUM CL SA 10 MEQ TAB PO ONE (09:00)
[2019-04-23 13:03] VITALS: BP 134/63; TEMP 98.2
--- NOTE | 2019-04-24 03:09 | DS ---
Date of Discharge: 04/23/2019 Consultants: Dr. Cooper with Podiatry, bedside procedure by him on the first toe, right foot. Admitting Diagnoses: 1.Acute metabolic encephalopathy secondary to urinary tract infection. 2.Acute cystitis with hematuria. 3.Left lower lobe pneumonia. 4.Insomnia. 5.Bilateral hearing loss. 6.Leukocytosis with neutrophilia. 7.Hypomagnesemia. Discharge Diagnoses: 1.Acute metabolic encephalopathy secondary to urinary tract infection, resolved. 2.Acute cystitis with hematuria, cultures negative. 3.Left lower lobe pneumonia, improved. 4.Insomnia, on trazodone. 5.Bilateral hearing loss. 6.Hypomagnesemia, replaced. Hospital Course: Patient is a 73-year-old female who was admitted to the hospital for altered mental status. She was found to have UTI and possible pneumonia. Patient's head CT scan was negative for any acute changes. Patient did have elevated white blood cell count 15,000 with left shift. The pat ient's white blood cell count improved with treatment. Her cultures did not show any growth to date. Urine culture grew out 100,000 colony-forming units of mixed oz. However, given her symptoms wh ite count and acute confusion related to the cystitis, she will need to complete treatment. Her bloo d cultures were also negative. Her oxygenation improved. She did not require any supplemental oxyge n. Did not have any fevers. Patient was able to ambulate without assist. She was doing well. Cond ition improved. She was then cleared for discharge and was sent home in a stable condition. Activity: As tolerated. Medications: As per medication reconciliation list. Followup: Follow up with primary care physician in 2-3 days. Return to ER for worsening condition. Medications: As per medication reconciliation list. Physical Examination: General: Awake, alert, oriented x3. No acute distress. CV: S1, S2. No murmurs. Respiratory: Moving air well bilaterally. No wheezing. Gastrointestinal: Abdomen is soft, nontender, nondistended. Positive bowel sounds. Extremities: No clubbing, cyanosis, or edema. Neurologic: Nonfocal. Total time spent discharging the patient was 32 minutes. SA/MODL Voice ID: [id number] Report ID: [id number]
== END 2019-04-23 12:44 | disposition home or self-care (01) | DRG 689 ==
LOC: ER 13:27 → ERHOLD 17:11 → 2ND 04-22 12:02
PROVIDERS: ADMIT Family Medicine; ATTEND Family Medicine
DX: N30.01 Acute cystitis with hematuria (principal); G93.41 Metabolic encephalopathy; J18.9 Pneumonia, unspecified organism; G47.00 Insomnia, unspecified; H91.93 Unspecified hearing loss, bilateral; E83.42 Hypomagnesemia; B35.1 Tinea unguium; L97.519 Non-pressure chronic ulcer of other part of right foot with unspecified severity
CPT/HCPCS: 36415; 70450; 71045; 80048; 80076; 80307; 80320; 80329; 81003; 81015; 83605; 83735; 83880; 84484; 85025; 85610; 85730; 87040; 87086; 87088; 93005; 94760; 96365; 96366; 96367; 96368; 97116; 97161; 99285; J0456; J0696; J1650; J3411; J7030

== ENCOUNTER 2020-08-28 20:21 | Inpatient (IN) | payer OTHER ==
[2020-08-28] MEDS ORDERED: NA CHLORIDE 0.9% 1,000 ML ONE (23:23)
[2020-08-28] MEDS ORDERED: CEFTRIAXONE/SWI 1gm 1 GM/10 ML SYR ONE (23:24)
[2020-08-28] MEDS ORDERED: FAMOTIDINE 20 MG/2 ML VIAL IV ONE (23:24)
[2020-08-28] MEDS ORDERED: NA CHLORIDE 0.9% 100 ML ONE (23:25)
[2020-08-29 00:19] LABS: Urine Blood 2+ (Negative); Urine Glucose Negative (Negative); Urine Protein 1+ (Negative); Urine Specific Gravity >=1.030 (1.005-1.030); Urine pH 5.5 (5.0-7.0)
[2020-08-29 00:37] LABS: Protime INR 1.28
[2020-08-29 00:44] LABS: Absolute Lymphocytes (CBC) 2.2 K/uL (0.7-4.9); Basophils % 0.7 % (0-1.3); Hematocrit 47.9 % (36.0-45.0); Lymphocytes % 14.9 % (15.3-44.8); RBC Red Blood Cell Count 5.27 M/uL (3.86-4.86)
[2020-08-29 01:04] LABS: ALT/SGPT 46 U/L (12-78); AST/SGOT 42 U/L (15-37); Albumin 3.4 g/dL (3.4-5.0); Alkaline Phosphatase 333 U/L (45-117); BUN Blood Urea Nitrogen 45 mg/dL (7-18); Bicarbonate 27 mmol/L (21-32); Bilirubin Direct 0.4 mg/dL (0-0.2); Glucose Level 139 mg/dL (74-106); Lipase 431 U/L (73-393); NT PRO-BNP 117 pg/mL (<125); Potassium 3.4 mmol/L (3.5-5.1); Protein, Total 9.1 g/dL (6.4-8.2); Sodium Level 146 mmol/L (136-145); Troponin (Emerg Dept Use Only) < 0.02 ng/mL (0.0-0.045)
--- NOTE | 2020-08-29 01:18 | ER ---
Nurse's Notes [facility] Name: Haritha Mensah Age: 75 yrs Sex: Female : 1945 Arrival Date: 08/28/2020 Time: 20:28 Bed 17 Private MD: Mian Stuart E Diagnosis: Dehydration;Weakness;Urinary tract infection, site not specified;Schizophrenia;Hypokalemia Presentation: 08/28 20:58 Chief complaint: Patient's son or daughter states: Daughter stated pt is not eating vg1 normal, sleeping a lot, hasn't been moving around. Stated not too sure if pt has taken more of her medication; this behavior has happened before and pt was dx with dehydration. Coronavirus screen: Client denies travel out of the [place] in the last 14 days. Ebola Screen: Patient negative for fever greater than or equal to 101.5 degrees Fahrenheit, and additional compatible Ebola Virus Disease symptoms. Initial Sepsis Screen: Does the patient meet any 2 criteria? No. Patient's initial sepsis screen is negative. Does the patient have a suspected source of infection? No. Patient's initial sepsis screen is negative. Risk Assessment: Do you want to hurt yourself or someone else? Patient reports no desire to harm self or others. Onset of symptoms was August 27, 2020. 20:58 Method Of Arrival: Wheelchair vg1 20:58 Acuity: OFE 3 vg1 Historical: - Allergies: 21:05 No Known Allergies; vg1 - Home Meds: 21:05 risperidone Oral [Active]; Trazodone Oral [Active]; Chlorthalidone Oral [Active]; vg1 Simvastatin Oral [Active]; - PMHx: 21:05 Schizophrenia; Hyperlipidemia; vg1 - Immunization history:: Adult Immunizations up to date. - Social history:: Smoking status: Patient denies any tobacco usage or history of. - Family history:: not pertinent. Screenin:34 Abuse screen: Denies threats or abuse. Denies injuries from another. Nutritional wh screening: No deficits noted. Tuberculosis screening: No symptoms or risk factors identified. Fall Risk Mental Status- Overestimates/Forgets Limitations (15 pts.). Vital Signs: 20:58 BP 153 / 93; Pulse 117; Resp 14; Temp 100(O); Pulse Ox 96% on R/A; Pain 0/10; vg1 23:33 BP 142 / 85; Pulse 87; Resp 16; Temp 98.7; Pulse Ox 98% on R/A; 08/29 03:57 BP 138 / 79; Pulse 89; Resp 18; Pulse Ox 98% on R/A; ak2 ED Course: 08/28 20:28 Patient arrived in ED. es 20:29 Mian Stuart MD is Private Physician. 21:03 Triage completed. vg1 21:05 Arm band placed on Patient placed in waiting room, in a wheelchair, with daughter vg1 Patient notified of wait time. 22:50 Milton Alberts MD is Attending Physician. [facility] 23:00 Caitlin Neely, RN is Primary Nurse. 23:34 Patient has correct armband on for positive identification. Bed in low position. Call light in reach. Adult w/ patient. 23:34 No provider procedures requiring assistance completed. Inserted saline lock:. 08/29 01:15 Juan Carlos Mckeon is Hospitalizing Provider. silvia Administered Medications: 08/28 23:07 Drug: NS 0.9% 1000 ml Route: IV; Rate: 1 bolus; Site: left antecubital; 23:07 Drug: Rocephin (cefTRIAXone) 1 grams Route: IV; Rate: per protocol; Site: left antecubital; 23:08 Drug: Pepcid (famotidine) 20 mg Route: IVP; Site: left antecubital; 08/29 01:24 Drug: NS 0.9% 500 ml Route: IV; Rate: bolus; Site: right antecubital; ak2 01:40 Drug: D5-NS with KCL 20 mEq/L 1000 ml Route: IV; Rate: 125 ml/hr; Site: right ak2 antecubital; Outcome: 01:18 Decision to Hospitalize by Provider. [facility] 03:58 Patient left the ED. ak2 Signatures: Milton Alberts MD MD cha Salyer, Edna es Habalo, Winsy, RN YADIRA Olya Ledezma RN RN [facility] Eliazar Lion ak2
--- NOTE | 2020-08-29 01:18 | EDPHYS ---
Physician Documentation [facility] Name: Haritha Mensah Age: 75 yrs Sex: Female : 1945 Arrival Date: 08/28/2020 Time: 20:28 Bed 17 Private MD: Mian Stuart E ED Physician Milton Alberts HPI: 08/29 01:04 This 75 yrs old Female presents to ER via Wheelchair with complaints of silvia Decreased Appetite, sleep a lot, dehydration. 01:04 The patient presents to the emergency department with nausea, that is mild. Onset: The silvia symptoms/episode began/occurred 1 day(s) ago. Possible causes: unknown. The symptoms are aggravated by nothing. The symptoms are alleviated by nothing. weakness, not eating not drinking, no pain , neuro non focal. Associated signs and symptoms: Pertinent positives: nausea. Severity of symptoms: At their worst the symptoms were mild in the emergency department the symptoms are unchanged. The patient has experienced similar episodes in the past, several times. Historical: - Allergies: 08/28 21:05 No Known Allergies; vg1 - Home Meds: 21:05 risperidone Oral [Active]; Trazodone Oral [Active]; Chlorthalidone Oral [Active]; vg1 Simvastatin Oral [Active]; - PMHx: 21:05 Schizophrenia; Hyperlipidemia; vg1 - Immunization history:: Adult Immunizations up to date. - Social history:: Smoking status: Patient denies any tobacco usage or history of. - Family history:: not pertinent. ROS: 08/29 01:04 Constitutional: Negative for fever, chills, and weight loss, Eyes: Negative for injury, silvia pain, redness, and discharge, ENT: Negative for injury, pain, and discharge, Neck: Negative for injury, pain, and swelling, Cardiovascular: Negative for chest pain, palpitations, and edema, Respiratory: Negative for shortness of breath, cough, wheezing, and pleuritic chest pain, Abdomen/GI: Negative for abdominal pain, nausea, vomiting, diarrhea, and constipation, Back: Negative for injury and pain, : Negative for injury, bleeding, discharge, and swelling, MS/Extremity: Negative for injury and deformity, Skin: Negative for injury, rash, and discoloration, Psych: Negative for depression, anxiety, suicide ideation, homicidal ideation, and hallucinations, Allergy/Immunology: Negative for hives, rash, and allergies, Endocrine: Negative for neck swelling, polydipsia, polyuria, polyphagia, and marked weight changes, Hematologic/Lymphatic: Negative for swollen nodes, abnormal bleeding, and unusual bruising. Neuro: Positive for weakness. Exam: :04 Constitutional: This is a well developed, well nourished patient who is awake, alert, silvia and in no acute distress. Head/Face: Normocephalic, atraumatic. Eyes: Pupils equal round and reactive to light, extra-ocular motions intact. Lids and lashes normal. Conjunctiva and sclera are non-icteric and not injected. Cornea within normal limits. Periorbital areas with no swelling, redness, or edema. ENT: Nares patent. No nasal discharge, no septal abnormalities noted. Tympanic membranes are normal and external auditory canals are clear. Oropharynx with no redness, swelling, or masses, exudates, or evidence of obstruction, uvula midline. Mucous membranes moist. Neck: Trachea midline, no thyromegaly or masses palpated, and no cervical lymphadenopathy. Supple, full range of motion without nuchal rigidity, or vertebral point tenderness. No Meningismus. Chest/axilla: Normal chest wall appearance and motion. Nontender with no deformity. No lesions are appreciated. Cardiovascular: Regular rate and rhythm with a normal S1 and S2. No gallops, murmurs, or rubs. Normal PMI, no JVD. No pulse deficits. Respiratory: Lungs have equal breath sounds bilaterally, clear to auscultation and percussion. No rales, rhonchi or wheezes noted. No increased work of breathing, no retractions or nasal flaring. Back: No spinal tenderness. No costovertebral tenderness. Full range of motion. Female : Normal external genitalia. Skin: Warm, dry with normal turgor. Normal color with no rashes, no lesions, and no evidence of cellulitis. MS/ Extremity: Pulses equal, no cyanosis. Neurovascular intact. Full, normal range of motion. Psych: Awake, alert, with orientation to person, place and time. Behavior, mood, and affect are within normal limits. 01:04 Abdomen/GI: Inspection: abdomen appears normal, Bowel sounds: normal, Palpation: nontender, Liver: no appreciated palpable abnormalities, Hernia: not appreciated. Vital Signs: 08/28 20:58 BP 153 / 93; Pulse 117; Resp 14; Temp 100(O); Pulse Ox 96% on R/A; Pain 0/10; vg1 23:33 BP 142 / 85; Pulse 87; Resp 16; Temp 98.7; Pulse Ox 98% on R/A; wh 08/29 03:57 BP 138 / 79; Pulse 89; Resp 18; Pulse Ox 98% on R/A; ak2 MDM: 08/28 22:50 Patient medically screened. [facility] 08/29 01:09 Differential diagnosis: Nonspecific abd pain, gastritis, cholecystitis, pancreatitis, silvia appendicitis, diverticulitis, viral gastroenteritis, gastroenteritis. Differential Diagnosis altered mental status, sepsis. Data reviewed: vital signs, nurses notes, lab test result(s), EKG, radiologic studies, CT scan, plain films. Data interpreted: manager monitoring: rate is 87 beats/min, rhythm is regular, Pulse oximetry: on room air is 98 %. Test interpretation: by ED physician or midlevel provider: ECG, plain radiologic studies. Counseling: I had a detailed discussion with the patient and/or guardian regarding: the historical points, exam findings, and any diagnostic results supporting the discharge/admit diagnosis, lab results, radiology results, the need for further work-up and treatment in the hospital. 08/28 22:55 Order name: Basic Metabolic Panel [facility] 08/28 22:55 Order name: CBC with Diff [facility] 08/28 22:55 Order name: LFT's [facility] 08/28 22:55 Order name: Magnesium [facility] 08/28 22:55 Order name: NT PRO-BNP [facility] 08/28 22:55 Order name: PT-INR [facility] 08/28 22:55 Order name: Troponin (emerg Dept Use Only) [facility] 08/28 22:55 Order name: Lipase [facility] 08/28 22:55 Order name: Blood Culture Adult (2) [facility] 08/28 22:55 Order name: Urine Culture [facility] 08/28 22:55 Order name: Flu [facility] 08/28 22:55 Order name: COVID-19 : Document "Date of Symptom Onset" if Symptomatic. [facility] 08/29 00:19 Order name: Urine Dipstick-Ancillary; Complete Time: 00:43 [facility] 08/29 00:21 Order name: CORONAVIRUS [facility] 08/28 22:55 Order name: XRAY Chest (1 view) [facility] 08/28 22:55 Order name: CT Chest Abdomen Pelvis W/O Contrast: no iv , no oral [facility] 08/29 00:22 Order name: Influenza Screen (A [facility] 08/29 00:42 Order name: Protime (+INR); Complete Time: 00:43 [facility] 08/29 01:02 Order name: CBC with Automated Diff; Complete Time: 01:02 [facility] 08/29 01:05 Order name: Basic Metabolic Panel; Complete Time: 01:12 [facility] 08/29 01:05 Order name: Liver (Hepatic) Function; Complete Time: 01:12 [facility] 08/29 01:05 Order name: Troponin (Emerg Dept Use Only); Complete Time: 01:12 [facility] 08/29 01:05 Order name: NT PRO-BNP; Complete Time: 01:12 [facility] 08/29 01:05 Order name: Magnesium; Complete Time: 01:12 [facility] 08/29 01:05 Order name: Lipase; Complete Time: 01:12 [facility] 08/29 01:47 Order name: COVID-19/FLU A+B [facility] 08/28 22:55 Order name: EKG; Complete Time: 22:[address] [facility] 08/28 22:55 Order name: Cardiac monitoring [facility] 08/28 22:55 Order name: EKG - Nurse/Tech [facility] 08/28 22:55 Order name: IV Saline Lock [facility] 08/28 22:55 Order name: Labs collected and sent [facility] 08/28 22:55 Order name: O2 Per Protocol [facility] 08/28 22:55 Order name: O2 Sat Monitoring [facility] 08/28 22:55 Order name: Urine Dipstick-Ancillary (obtain specimen) [facility] Administered Medications: 08/28 23:07 Drug: NS 0.9% 1000 ml Route: IV; Rate: 1 bolus; Site: left antecubital; 23:07 Drug: Rocephin (cefTRIAXone) 1 grams Route: IV; Rate: per protocol; Site: left antecubital; 23:08 Drug: Pepcid (famotidine) 20 mg Route: IVP; Site: left antecubital; 08/29 01:24 Drug: NS 0.9% 500 ml Route: IV; Rate: bolus; Site: right antecubital; ak2 01:40 Drug: D5-NS with KCL 20 mEq/L 1000 ml Route: IV; Rate: 125 ml/hr; Site: right ak2 antecubital; Disposition: 08/29/20 01:18 Hospitalization ordered by Juan Carlos Mckeon for Inpatient Admission. Preliminary diagnosis are Dehydration, Weakness, Urinary tract infection, site not specified, Schizophrenia, Hypokalemia. - Bed requested for Telemetry/MedSurg (Inpatient). - Status is Inpatient Admission. ak2 - Condition is Fair. - Problem is new. - Symptoms have improved. Signatures: Dispatcher [employer] EDMilton Leonardo MD MD cha Garcia, Cindy, RN RN cg Caitlin Neely, RN Olya Olvera, RN RN 1 Eliazar Lion nv2 Corrections: (The following items were deleted from the chart) 02:56 01:18 Hospitalization Ordered by Juan Carlos Mckeon for Inpatient Admission. Preliminary cg diagnosis is Dehydration; Weakness; Urinary tract infection, site not specified; Schizophrenia; Hypokalemia. Bed requested for Telemetry/MedSurg (Inpatient). Status is Inpatient Admission. Condition is Fair. Problem is new. Symptoms have improved. sivlia 03:58 02:56 08/29/2020 01:18 Hospitalization Ordered by Juan Carlos Mckeon for Inpatient ak2 Admission. Preliminary diagnosis is Dehydration; Weakness; Urinary tract infection, site not specified; Schizophrenia; Hypokalemia. Bed requested for Telemetry/MedSurg (Inpatient). Status is Inpatient Admission. Condition is Fair. Problem is new. Symptoms have improved. cg
[2020-08-29 01:46] LABS: SARS-COV-2 RT PCR NEGATIVE (NEGATIVE)
[2020-08-29] MEDS: Ringers Lactate 1,000 ML IV SCH ×4 (03:22→20:29)
[2020-08-29] MEDS ORDERED: ONDANSETRON 4 MG/2 ML VIAL IV PRN (03:22)
[2020-08-29] MEDS ORDERED: ACETAMINOPHEN 500 MG TAB PO PRN (03:22)
--- NOTE | 2020-08-29 03:29 | P.HP ---
Certification for Inpatient Patient admitted to: Observation With expected LOS: <2 Midnights Patient will require the following post-hospital care: None Practitioner: I am a practitioner with admitting privileges, knowledge of patient current condition, hospital course, and medical plan of care. Services: Services provided to patient in accordance with Admission requirements found in Title 42 Section 412.3 of the Code of Federal Regulations <Valdez Kemp - Last Filed: 08/29/20 03:23> Patient History Date of Service: 08/29/20 Primary Care Provider: Sade Reason for admission: UTI, dehydration History of Present Illness: Ms. Mensah is a 75 yo F with schizophrenia here today for two days of lethargy and decreased appetite and fluid intake. Her family says she has not been moving around as usual and had one episode of incontinence. Per her daughter, the last time this happened she was admitted to the hospital for dehydration. WBC 15. Na 146, K 3.4, BUN 45, GFR 42, Glu 139, Mg 3. Urine - 2+ blood, nitrites, protein. - Past Medical/Surgical History Diabetic: No -: Dementia -: Schizophrenia -: C section Psychosocial/ Personal History: lives with daughter - Social History Smoking Status: Never smoker Alcohol use: No CD- Drugs: No Caffeine use: No Place of Residence: Home <Valdez Kemp - Last Filed: 08/29/20 03:23> Date of Service: 08/29/20 <Wanda Stover - Last Filed: 09/17/20 02:08> Allergies No Known Allergies Allergy (Verified 04/21/19 23:40) Home Medications: Risperidone [Risperdal] 1 mg PO BEDTIME 04/22/19 Trazodone [Desyrel*] 50 mg PO BEDTIME 04/22/19 Chlorthalidone [Hygroton 25mg Tab*] 1 tab PO BEDTIME 08/29/20 Simvastatin 10 mg PO BEDTIME 08/29/20 Cefdinir [Omnicef] 300 mg PO BID #14 capsule 08/30/20 Ensure Enlive 237 ml PO BID #60 can 08/30/20 Review of Systems 10-point ROS is otherwise unremarkable <Valdez Kemp - Last Filed: 08/29/20 03:23> Physical Examination - Physical Exam General: Alert, In no apparent distress, Cooperative, Cachectic HEENT: Atraumatic, Normocephalic, PERRLA, Mucous membr. moist/pink, EOMI, Sclerae nonicteric Neck: Supple, 2+ carotid pulse no bruit, JVD not distended, No Thyromegaly, No LAD Respiratory: Clear to auscultation bilaterally, Normal air movement Cardiovascular: No edema, Normal pulses, Regular rate/rhythm, Normal S1 S2, No gallops, No rubs, No murmurs Capillary refill: <2 Seconds Gastrointestinal: Normal bowel sounds, Soft and benign, Non-distended, No ascites, No tenderness, No masses, No rebound, No guarding Musculoskeletal: No clubbing, No swelling, No contractures, No erythema, No tenderness, No warmth Integumentary: No rashes, No breakdown, No significant lesion, No tenderness/swelling, No erythema, No warmth, No cyanosis Neurological: Normal strength at 5/5 x4 extr, Normal tone, Sensation intact, Cranial nerves 3-12 intact, Abnormal speech, Abnormal affect Lymphatics: No axilla or inguinal lymphadenopathy - Studies Laboratory Data (last 24 hrs) 08/28/20 23:50: PT 14.8 H, INR 1.28 08/28/20 23:50: WBC 15.00 H, Hgb 15.5 H, Hct 47.9 H, Plt Count 217 08/28/20 23:50: Sodium 146 H, Potassium 3.4 L, BUN 45 H, Creatinine 1.25, Glucose 139 H, Magnesium 3.0 H D, Total Bilirubin 1.0, AST 42 H, ALT 46, Alkaline Phosphatase 333 H, Lipase 431 H <Valdez Kemp - Last Filed: 08/29/20 03:23> Assessment and Plan - Problems (Diagnosis) (1) Schizophrenia Status: Chronic Qualifiers: Schizophrenia type: unspecified Qualified Code(s): F20.9 - Schizophrenia, unspecified (2) UTI (urinary tract infection) Status: Acute Qualifiers: Urinary tract infection type: site unspecified Hematuria presence: with hematuria Qualified Code(s): N39.0 - Urinary tract infection, site not specified; R31.9 - Hematuria, unspecified (3) Dehydration Status: Acute - Plan will reconcile and continue home medications continue with IVF and IV antibiotics will monitor electrolytes Discharge Plan: Home Plan to discharge in: 24 Hours - Advance Directives Does patient have a Living Will: No Does patient have a Durable POA for Healthcare: No - Code Status/Comfort Care Code Status Assessed: Yes (full code ) Critical Care: No Time Spent Managing Pts Care (In Minutes): 70 <Valdez Kemp - Last Filed: 08/29/20 03:23>
[2020-08-29 04:12] VITALS: BMI 24.2
[2020-08-29] MEDS: INSULIN -REGULAR HUMAN 50 UNIT/0.5 ML ML SQ SCH ×4 (07:30→21:00)
[2020-08-29 07:45] LABS: Hematocrit 40.8 % (36.0-45.0); MPV 9.3 fL (7.6-11.3); RBC Red Blood Cell Count 4.47 M/uL (3.86-4.86)
--- NOTE | 2020-08-29 07:52 | RAD REPORT ---
EXAM DESCRIPTION: RAD - Chest Single View - 08/28/2020 11:29 pm CLINICAL HISTORY: COUGH, altered mental status COMPARISON: Single-view chest April 2019 TECHNIQUE: AP portable chest image was obtained 08/28/2020 11:29 pm . FINDINGS: No peripheral mass, consolidation or failure finding. Chronic interstitial lung disease ma tches comparison. Heart and vasculature are normal. No measurable pleural effusion and no pneumothora x. No acute bony abnormality seen. No acute aortic findings suspected. IMPRESSION: No acute cardiopulmonary process. No significant change from comparison study.
[2020-08-29 08:06] LABS: Albumin 2.9 g/dL (3.4-5.0); Bilirubin Total 0.8 mg/dL (0.2-1.0); Potassium 3.2 mmol/L (3.5-5.1); Protein, Total 7.6 g/dL (6.4-8.2)
--- NOTE | 2020-08-29 08:42 | EKG ---
Test Date: 2020-08-28 Test Time: 23:47:02 Record Press Supervisor: . MEASUREMENT RESULTS: Intervals: Rate: 102 NM: 144 QRSD: 74 QT: 430 QTc: 560 [place]: P: 49 NM: 144 QRS: 86 T: 49 INTERPRETIVE STATEMENTS: Sinus tachycardia with occasional premature ventricular complexes RSR' or QR pattern in V1 suggests right ventricular conduction delay Borderline ECG Compared to ECG 04/21/2019 14:06:35 No significant changes Electronically Signed On 08-29-20 08:41:13 CDT by Tirso Thakur
[2020-08-29] MEDS ORDERED: POTASSIUM 25 MEQ EFFERV TAB PO ONE (09:00)
[2020-08-29] MEDS: HEPARIN 5000 UNIT/ML 1 ML VIAL SQ SCH ×2 (10:33→17:00)
--- NOTE | 2020-08-29 13:04 | RAD REPORT ---
EXAM DESCRIPTION: CT - Chest Abd Pelvis Wo Con - 08/29/2020 7:08 am [facility]: CT CHEST ABDOMEN PELVIS WITHOUT IV CONTRAST CLINICAL HISTORY: Abdominal distention;Cough. COMPARISON: None. TECHNIQUE: CT of the chest, abdomen, and pelvis was performed without contrast. Oral contrast was no t administered. Axial, coronal, and sagittal reconstructions were created and sent to PACS. This exam was performed according to our departmental dose-optimization program, which includes autom ated exposure control, adjustment of the mA and/or kV according to patient size and/or use of iterati ve reconstruction technique. FINDINGS: Mild motion degradation in the upper abdomen. Streak artifact from bilateral hip hardware limits evaluation of the pelvic structures. Lungs and pleura: No pulmonary consolidation. No pleural effusion. No pneumothorax. Mild diffuse intr alobular septal thickening. Mediastinum and neck: No mediastinal lymphadenopathy identified by CT size criteria. Cardiac: No cardiomegaly or pericardial effusion. No thoracic aortic aneurysm. Small amount of calcif ications in the coronary arteries. Hepatobiliary: No obvious hepatic lesion identified. The gallbladder is unremarkable. No biliary duct al dilatation. Pancreas: Unremarkable. Spleen: Unremarkable. Gastrointestinal: No evidence of bowel obstruction or perienteric inflammation. The appendix is romeo l. Moderate amount of gas and fecal material throughout the colon. Adrenals: No abnormality identified in either adrenal gland. Renal: No obvious parenchymal abnormality in either kidney. Few small simple left renal sinus cysts. No hydronephrosis or urolithiasis. Bladder/Reproductive: Unremarkable appearance of the urinary bladder by CT technique. Unremarkable CT appearance of the uterus and ovaries. Vascular/Lymphatics: No lymphadenopathy identified by CT size criteria. Abdominal aorta is normal in caliber. Mild calcific atherosclerosis. Musculoskeletal: No concerning osseous lesion identified. Bilateral hip arthroplasty. Osteopenia. [place] or healed lateral right ninth rib fracture. Fluid / peritoneum: No significant free fluid. No free intraperitoneal air identified. IMPRESSION 1. No pulmonary consolidation or pleural effusion. 2. Mild diffuse pulmonary interstitial thickening. Broad differential, including chronic fibrosis, interstitial pulmonary edema, or atypical infection. 3. No acute abdominal or pelvic abnormality identified. Moderate amount of gas and fecal material t hroughout the colon. Electronically signed by: Ruby Maldonado MD 08/29/2020 12:03 AM CDT Due to temporary technical issues with the PACS/Fluency reporting system, reports are being signed by the in house radiologists without review as a courtesy to insure prompt reporting. The interpreting radiologist is fully responsible for the content of the report.
[2020-08-29 18:36] LABS: Urine Appearance TURBID (Clear); Urine Bilirubin NEGATIVE (Negataive); Urine Blood 2+ (Negative); Urine Color DK YELLOW (Yellow); Urine Glucose NEGATIVE (Negative); Urine Protein TRACE (Negative); Urine pH 6.5 (5.0-7.0)
[2020-08-29 18:47] LABS: Urine Microscopic Reflex ORDER UMIC
[2020-08-29 18:53] LABS: Urine Bacteria 20-50 /HPF (<20); Urine RBC <5 /HPF (NONE SEEN)
[2020-08-29] MEDS ORDERED: RISPERIDONE 1 MG TABLET PO SCH (21:00)
[2020-08-29] MEDS ORDERED: TRAZODONE 50 MG TABLET PO SCH (21:00)
[2020-08-29] MEDS ORDERED: CEFTRIAXONE/SWI 1gm 1 GM/10 ML SYR IVP SCH (21:00)
[2020-08-29] MEDS ORDERED: CHLORTHALIDONE 25 MG TAB PO SCH (21:00)
[2020-08-29] MEDS ORDERED: CEFTRIAXONE 1 GM/NS 50 ML 1 GM/50 ML BAG IV SCH (21:00)
[2020-08-29] MEDS ORDERED: ATORVASTATIN 10 MG TAB PO SCH (21:00)
[2020-08-29] MEDS: ENSURE ENLIVE 237 ML CAN PO SCH (21:55)
[2020-08-30] MEDS: HEPARIN 5000 UNIT/ML 1 ML VIAL SQ SCH ×2 (00:20→09:51)
[2020-08-30 04:02] LABS: Absolute Lymphocytes (CBC) 2.4 K/uL (0.7-4.9); Basophils % 0.7 % (0-1.3); Hematocrit 37.1 % (36.0-45.0); Lymphocytes % 19.3 % (15.3-44.8); MPV 8.9 fL (7.6-11.3); RBC Red Blood Cell Count 4.13 M/uL (3.86-4.86)
[2020-08-30 04:33] LABS: ALT/SGPT 36 U/L (12-78); AST/SGOT 44 U/L (15-37); Albumin 2.3 g/dL (3.4-5.0); Alkaline Phosphatase 229 U/L (45-117); BUN Blood Urea Nitrogen 22 mg/dL (7-18); Bicarbonate 28 mmol/L (21-32); Bilirubin Total 0.5 mg/dL (0.2-1.0); Glucose Level 91 mg/dL (74-106); Magnesium 2.2 mg/dL (1.8-2.4); Phosphorus 2.4 mg/dL (2.5-4.9); Potassium 3.5 mmol/L (3.5-5.1); Protein, Total 6.2 g/dL (6.4-8.2); Sodium Level 145 mmol/L (136-145)
[2020-08-30] MEDS: Ringers Lactate 1,000 ML IV SCH (06:53)
[2020-08-30] MEDS: INSULIN -REGULAR HUMAN 50 UNIT/0.5 ML ML SQ SCH ×2 (07:30→11:29)
[2020-08-30] MEDS ORDERED: POTASSIUM PHOS IN 0.9 % NACL 15 MMOL/250 ML BAG IV ONE (09:00)
[2020-08-30] MEDS: ENSURE ENLIVE 237 ML CAN PO SCH (09:50)
[2020-08-30] MEDS ORDERED: POLYETHYL GLY 3350 17 GM/DOSE PO ONE (10:23)
[2020-08-30 10:33] VITALS: O2SAT 95
[2020-08-30 14:17] VITALS: BP 125/60; TEMP 98.9
[2020-08-30] MEDS ORDERED: CEFTRIAXONE/SWI 1gm 1 GM/10 ML SYR IV ONE (14:18)
--- NOTE | 2020-09-17 02:09 | P.DS ---
Discharge Date: 08/30/20 Primary Care Provider: Stuart Disposition: ROUTINE DISCHARGE Discharge Condition: GOOD Reason for Admission: UTI, dehydration Brief History of Present Illness: Patient is a 75-year-old female who presents to the hospital with altered mental status. Patient had some confusion and was evaluated in the emergency room. Patient found to have a positive UA with microscopy. Patient was diagnosed with a UTI and after IV fluids and IV antibiotics. Patient's mentation started improving. Hospital Course: Patient has done well during hospital stay. Patient responded with antibiotic t herapy and we will continue with oral antibiotic therapy going for. Patient was also given protein supplementation to help build her strength nebs. Patient is stable for discharge with outpatient follow-up. Vital Signs/Physical Exam: Temp Pulse Resp BP Pulse Ox 98.9 F 88 16 125/60 96 08/30/20 12:00 08/30/20 12:00 08/30/20 12:00 08/30/20 12:00 08/30/20 12:00 General: Alert, In no apparent distress, Oriented x2 Respiratory: Clear to auscultation bilaterally, Normal air movement Cardiovascular: Regular rate/rhythm, Normal S1 S2 Laboratory Data at Discharge: WBC 12.20 K/uL (4.3-10.9) H D 08/30/20 03:42 Hgb 12.5 g/dL (12.0-15.0) 08/30/20 03:42 Hct 37.1 % (36.0-45.0) 08/30/20 03:42 Plt Count 169 K/uL (152-406) 08/30/20 03:42 PT 14.8 SECONDS (9.5-12.5) H 08/28/20 23:50 INR 1.28 08/28/20 23:50 Sodium 145 mmol/L (136-145) 08/30/20 03:42 Potassium 3.5 mmol/L (3.5-5.1) 08/30/20 03:42 BUN 22 mg/dL (7-18) H 08/30/20 03:42 Creatinine 0.59 mg/dL (0.55-1.3) 08/30/20 03:42 Glucose 91 mg/dL (74-106) 08/30/20 03:42 Phosphorus 2.4 mg/dL (2.5-4.9) L 08/30/20 03:42 Magnesium 2.2 mg/dL (1.8-2.4) D 08/30/20 03:42 Total Bilirubin 0.5 mg/dL (0.2-1.0) 08/30/20 03:42 AST 44 U/L (15-37) H 08/30/20 03:42 ALT 36 U/L (12-78) 08/30/20 03:42 Alkaline Phosphatase 229 U/L (45-117) H 08/30/20 03:42 Lipase 431 U/L (73-393) H 08/28/20 23:50 Home Medications: Risperidone [Risperdal] 1 mg PO BEDTIME 04/22/19 Trazodone [Desyrel*] 50 mg PO BEDTIME 04/22/19 Chlorthalidone [Hygroton 25mg Tab*] 1 tab PO BEDTIME 08/29/20 Simvastatin 10 mg PO BEDTIME 08/29/20 Cefdinir [Omnicef] 300 mg PO BID #14 capsule 08/30/20 Ensure Enlive 237 ml PO BID #60 can 08/30/20 New Medications: Ensure Enlive 237 ml PO BID #60 can Cefdinir [Omnicef] 300 mg PO BID #14 capsule Diet: AHA Activity: Fall precautions Followup: Mian Stuart MD [Primary Care Provider] - Time spent managing pt's care (in minutes): 35
== END 2020-08-30 16:15 | disposition home or self-care (01) | DRG 690 ==
LOC: ER 20:21 → ERHOLD 08-29 02:36 → 2ND 08-29 03:48
PROVIDERS: ADMIT Hospitalist; ATTEND Hospitalist
DX: N39.0 Urinary tract infection, site not specified (principal); R64 Cachexia; F20.9 Schizophrenia, unspecified; E86.0 Dehydration; E78.5 Hyperlipidemia, unspecified; E87.6 Hypokalemia; R31.9 Hematuria, unspecified; Z68.24 Body mass index [BMI] 24.0-24.9, adult; Z79.899 Other long term (current) drug therapy; Z20.822 Contact with and (suspected) exposure to COVID-19
CPT/HCPCS: 0240U; 36415; 71045; 71250; 74176; 80048; 80053; 80076; 81003; 81015; 82947; 83036; 83690; 83735; 83880; 84100; 84484; 85025; 85027; 85610; 87040; 87077; 87086; 87088; 87186; 93005; 94760; 96374; 96375; 99283; J0696; J1644; J7030; J7120

== ENCOUNTER 2020-09-20 10:57 | Emergency (ER) | payer OTHER ==
[2020-09-20] MEDS ORDERED: NA CHLORIDE 0.9% 250 ML ONE (12:11)
[2020-09-20 12:32] LABS: Absolute Lymphocytes (CBC) 2.1 K/uL (0.7-4.9); Hematocrit 41.6 % (36.0-45.0); Lymphocytes % 25.2 % (15.3-44.8); MPV 7.9 fL (7.6-11.3); RBC Red Blood Cell Count 4.59 M/uL (3.86-4.86)
[2020-09-20 12:48] LABS: Albumin 3.4 g/dL (3.4-5.0); Bilirubin Direct 0.3 mg/dL (0-0.2); Bilirubin Total 0.6 mg/dL (0.2-1.0); Potassium 3.6 mmol/L (3.5-5.1); Protein, Total 8.4 g/dL (6.4-8.2)
[2020-09-20 13:09] LABS: Urine Blood 1+ (Negative); Urine Glucose Negative (Negative); Urine Protein Negative (Negative); Urine Specific Gravity >=1.030 (1.005-1.030); Urine pH 5.5 (5.0-7.0)
[2020-09-20 13:42] LABS: Urine Bacteria >50 /HPF (<20); Urine RBC <5 /HPF (NONE SEEN)
[2020-09-20] MEDS ORDERED: levoFLOXacin 500 MG TAB ONE (14:35)
--- NOTE | 2020-09-20 14:36 | ER ---
Nurse's Notes [facility] Name: Haritha Mensah Age: 75 yrs Sex: Female : 1945 Arrival Date: 09/20/2020 Time: 11:00 Bed 23 Private MD: Mian Stuart E Diagnosis: Urinary tract infection, site not specified Presentation: 09/20 11:07 Chief complaint: Patient's son or daughter states: she is still having trouble tw2 urinating, and was recently on abx for a UTI, Dr. Stuart told us to come back here because her urine still showed infection. she is at her baseline mentally but she is a paranoid schiophrenic. Coronavirus screen: At this time, the client does not indicate any symptoms associated with coronavirus-19. Ebola Screen: Patient denies travel to an Ebola-affected area in the 21 days before illness onset. Initial Sepsis Screen: Does the patient meet any 2 criteria? No. Patient's initial sepsis screen is negative. Does the patient have a suspected source of infection? No. Patient's initial sepsis screen is negative. Risk Assessment: Do you want to hurt yourself or someone else? Patient reports no desire to harm self or others. Onset of symptoms was September 20, 2020. 11:07 Method Of Arrival: Ambulatory tw2 11:07 Acuity: OFE 3 tw2 Triage Assessment: 11:11 General: Appears in no apparent distress. Behavior is quiet. Pain: Denies pain. EENT: tw2 Parent/caregiver reports the patient having "she is very hard of hearing". : Parent/caregiver report the patient having burning with urination. Historical: - Allergies: 11:11 No Known Allergies; tw2 - Home Meds: 11:11 Trazodone Oral [Active]; Simvastatin Oral [Active]; risperidone Oral [Active]; tw2 Chlorthalidone Oral [Active]; - PMHx: 11:11 Hyperlipidemia; Schizophrenia; tw2 - Immunization history:: Adult Immunizations. - Social history:: Smoking status: . Screenin:20 Abuse screen: Denies threats or abuse. Nutritional screening: No deficits noted. tw2 Tuberculosis screening: No symptoms or risk factors identified. Fall Risk None identified. Assessment: 11:31 General: Appears in no apparent distress. comfortable, Behavior is calm, cooperative. vg1 Pain: Denies pain. Neuro: Level of Consciousness is awake, alert, obeys commands, Oriented to person, place, time, situation. Cardiovascular: Patient's skin is warm and dry. Respiratory: Airway is patent Respiratory effort is even, unlabored. GI: No signs and/or symptoms were reported involving the gastrointestinal system. : Denies burning with urination, urinary frequency. EENT: No signs and/or symptoms were reported regarding the EENT system. Derm: Skin is intact, Skin is pink, warm \\T\\ dry. Musculoskeletal: Swelling present in left lower extremitiy. 11:56 Reassessment: spoke with Dr. Stuart office, urine culture was positive for ESBL , will iw fax over results now , Milton Page notified. 13:00 Reassessment: Patient appears in no apparent distress at this time. No changes from vg1 previously documented assessment. Patient and/or family updated on plan of care and expected duration. Pain level reassessed. Patient is alert, oriented x 3, equal unlabored respirations, skin warm/dry/pink. 14:23 Reassessment: Patient appears in no apparent distress at this time. Patient and/or vg1 family updated on plan of care and expected duration. Pain level reassessed. Patient is alert, oriented x 3, equal unlabored respirations, skin warm/dry/pink. Patient denies pain at this time. Vital Signs: 11:07 BP 148 / 76; Pulse 94; Resp 18; Temp 98.2(O); Pulse Ox 96% on R/A; tw2 11:33 BP 132 / 68; Pulse 84; Resp 16; Pulse Ox 100% on R/A; vg1 11:45 BP 133 / 65; Pulse 76; Resp 16; Pulse Ox 100% on R/A; vg1 12:30 BP 128 / 67; Pulse 78; Resp 14; Pulse Ox 100% on R/A; vg1 13:00 BP 124 / 55; Pulse 73; Resp 14; Pulse Ox 100% ; vg1 14:22 BP 137 / 75; Pulse 72; Resp 16; Pulse Ox 100% on R/A; vg1 ED Course: 11:00 Patient arrived in ED. mr 11:00 Mian Stuart MD is Private Physician. mr 11:07 Olya Ledezma, YADIRA is Primary Nurse. vg1 11:07 Bed in low position. Call light in reach. Adult w/ patient. Pulse ox on. NIBP on. tw2 11:10 Triage completed. tw2 11:11 Arm band placed on. tw2 11:30 Milton Pagan PA is PHCP. cp 11:30 Elmer Torres MD is Attending Physician. cp 12:15 Missed attempt(s): 20 gauge in right antecubital area. vg1 12:19 Missed attempt(s): 22 gauge in left antecubital area. vg1 12:20 Initial lab(s) drawn, by nh, sent to lab. First set of blood cultures drawn. vg1 12:33 Inserted saline lock: 22 gauge in right wrist, using aseptic technique. ,using aseptic vg1 technique. completed by YADIRA Barlow. 12:36 Second set of blood cultures drawn by nh. vg1 13:00 Straight cath inserted, using sterile technique, 16 Fr. Specimen obtained. vg1 13:00 Urine collected: straight cath specimen, radha colored, Amount Returned: 300mL. vg1 14:43 IV discontinued, intact, bleeding controlled, No redness/swelling at site. Pressure vg1 dressing applied. 14:43 No provider procedures requiring assistance completed. vg1 Administered Medications: 12:37 Drug: NS 0.9% 250 ml Route: IV; Rate: calculated rate; Site: right wrist; vg1 12:55 Follow up: IV Status: Completed infusion; IV Intake: 250ml vg1 14:17 Drug: LevaQUIN (levofloxacin) 500 mg Route: PO; vg1 14:44 Follow up: Response: No adverse reaction vg1 Intake: 12:55 IV: 250ml; Total: 250ml. vg1 Outcome: 14:35 Discharge ordered by . cp 14:43 Discharged to home ambulatory, with family. vg1 14:43 Condition: stable 14:43 Discharge instructions given to patient, family, Instructed on discharge instructions, follow up and referral plans. medication usage, Demonstrated understanding of instructions, follow-up care, medications, Prescriptions given X 1. 14:43 Patient left the ED. vg1 Addendum: 09/23/2020 07:35 Addendum: Culture Results: Positive urine culture. No further action required. Bacteria e b sensitive to prescribed antibiotic. Signatures: Theresa Vu Irene, RN RN iw Milton Pagan PA PA cp Wise, Tara, RN RN tw2 Sarah Vazquez Victoria, RN RN vg1
--- NOTE | 2020-09-20 14:36 | EDPHYS ---
Physician Documentation [facility] Name: Haritha Mensah Age: 75 yrs Sex: Female : 1945 Arrival Date: 09/20/2020 Time: 11:00 Bed 23 Private MD: Mian Stuart E ED Physician Elmer Torres HPI: 09/20 11:55 This 75 yrs old Female presents to ER via Ambulatory with complaints of cp Urinary Problem. 11:55 The patient presents with urinary symptoms, persistent urinary tract infection. cp 11:55 Associated signs and symptoms: Pertinent negatives: diarrhea, fever, vomiting, cp confusion. Daughter reports patient was hospitalized 2 weeks ago for UTI. Recent f/u with primary physician with urine sample collected and cultured showed concern for continued urinary tract infection with concern for esbl bacteria. Historical: - Allergies: 11:11 No Known Allergies; tw2 - Home Meds: 11:11 Trazodone Oral [Active]; Simvastatin Oral [Active]; risperidone Oral [Active]; tw2 Chlorthalidone Oral [Active]; - PMHx: 11:11 Hyperlipidemia; Schizophrenia; tw2 - Immunization history:: Adult Immunizations. - Social history:: Smoking status: . ROS: 12:00 Constitutional: Negative for body aches, chills, fever, malaise. cp 12:00 Eyes: Negative for injury, pain, redness, and discharge. cp 12:00 Cardiovascular: Negative for chest pain, edema, palpitations. 12:00 Respiratory: Negative for cough, shortness of breath, wheezing. 12:00 Abdomen/GI: Negative for abdominal pain, nausea, vomiting, and diarrhea. 12:00 : Negative for flank pain. 12:00 Neuro: Negative for altered mental status, headache, weakness. 12:00 All other systems are negative. Exam: 12:05 Constitutional: The patient appears in no acute distress, alert, awake, comfortable, cp non-diaphoretic, non-toxic, well developed, well nourished. 12:05 Head/Face: Normocephalic, atraumatic. cp 12:05 Eyes: Periorbital structures: appear normal, Conjunctiva: normal, no exudate, no injection, Sclera: no appreciated abnormality, Lids and lashes: appear normal, bilaterally. 12:05 ENT: External ear(s): are unremarkable, Nose: is normal, Mouth: Lips: moist, Oral mucosa: moist, Posterior pharynx: Airway: no evidence of obstruction, patent. 12:05 Chest/axilla: Inspection: normal. 12:05 Cardiovascular: Rate: normal, Rhythm: regular, Edema: is not appreciated, JVD: is not appreciated. 12:05 Respiratory: the patient does not display signs of respiratory distress, Respirations: normal, no use of accessory muscles, no retractions, labored breathing, is not present, Breath sounds: are clear throughout, no decreased breath sounds. 12:05 Abdomen/GI: Inspection: abdomen appears normal, Palpation: abdomen is soft and non-tender, in all quadrants. 12:05 Back: CVA tenderness, is absent. 12:05 Neuro: Orientation: no acute changes, per family, Mentation: no acute changes, per family, Motor: moves all fours, strength is normal, Gait: is steady, at a normal pace, without difficulty. Vital Signs: 11:07 BP 148 / 76; Pulse 94; Resp 18; Temp 98.2(O); Pulse Ox 96% on R/A; tw2 11:33 BP 132 / 68; Pulse 84; Resp 16; Pulse Ox 100% on R/A; vg1 11:45 BP 133 / 65; Pulse 76; Resp 16; Pulse Ox 100% on R/A; vg1 12:30 BP 128 / 67; Pulse 78; Resp 14; Pulse Ox 100% on R/A; vg1 13:00 BP 124 / 55; Pulse 73; Resp 14; Pulse Ox 100% ; vg1 14:22 BP 137 / 75; Pulse 72; Resp 16; Pulse Ox 100% on R/A; vg1 MDM: 11:43 Patient medically screened. cp 14:35 Data reviewed: vital signs, nurses notes, lab test result(s). 09/20 11:46 Order name: Basic Metabolic Panel; Complete Time: 14:08 09/20 14:08 Interpretation: Normal except: BUN 22; GFR 72. 09/20 11:46 Order name: CBC with Diff; Complete Time: 14:08 09/20 11:46 Order name: Hepatic Function; Complete Time: 14:08 09/20 11:46 Order name: Lipase; Complete Time: 14:08 09/20 11:46 Order name: Urine Microscopic Only; Complete Time: 14:08 09/20 14:08 Interpretation: Normal except: UWBC >50; UBACT >50. cp 09/20 11:46 Order name: Procalcitonin; Complete Time: 14:08 09/20 11:46 Order name: IV Saline Lock; Complete Time: 12:33 cp 09/20 11:53 Order name: Lactate; Complete Time: 14:08 09/20 11:53 Order name: Blood Culture Adult (2) 09/20 11:53 Order name: Magnesium; Complete Time: 14:08 09/20 13:09 Order name: Urine Dipstick-Ancillary; Complete Time: 14:08 EDSC 09/20 13:43 Order name: Urine Culture [facility] 09/20 11:46 Order name: Labs collected and sent; Complete Time: 12:26 09/20 11:46 Order name: Urine Dipstick-Ancillary (obtain specimen); Complete Time: 13:13 09/20 14:10 Order name: PO challenge; Complete Time: 14:18 cp Administered Medications: 12:37 Drug: NS 0.9% 250 ml Route: IV; Rate: calculated rate; Site: right wrist; vg1 12:55 Follow up: IV Status: Completed infusion; IV Intake: 250ml vg1 14:17 Drug: LevaQUIN (levofloxacin) 500 mg Route: PO; vg1 14:44 Follow up: Response: No adverse reaction vg1 Disposition: 09/21 07:01 Co-signature as Attending Physician, Elmer Torres MD I agree with the assessment and kdr plan of care. Disposition: 09/20/20 14:35 Discharged to Home. Impression: Urinary tract infection, site not specified. - Condition is Stable. - Discharge Instructions: Urinary Tract Infection, Adult. - Prescriptions for Levaquin 500 mg Oral Tablet - take 1 tablet by ORAL route once daily for 8-10 days start afternoon of 09-21-2020; 9 tablet. - Medication Reconciliation Form, Thank You Letter, Antibiotic Education, Prescription Opioid Use form. - Follow up: Private Physician; When: 2 - 3 days; Reason: Recheck today's complaints. - Problem is new. - Symptoms have improved. Signatures: [facility] El[facility] MD MD [facility] Milton Pagan PA PA cp Wise, Tara, RN RN tw2 Olya Ledezma RN RN vg1 Corrections: (The following items were deleted from the chart) 09/20 14:43 14:35 09/20/2020 14:35 Discharged to Home. Impression: Urinary tract infection, site vg1 not specified. Condition is Stable. Forms are Medication Reconciliation Form, Thank You Letter, Antibiotic Education, Prescription Opioid Use. Follow up: Private Physician; When: 2 - 3 days; Reason: Recheck today's complaints. Problem is new. Symptoms have improved. cp
[2020-09-20 14:50] VITALS: TEMP 98.2
[2020-09-20 14:51] VITALS: O2SAT 100
[2020-09-20 14:59] VITALS: BP 137/75
== END 2020-09-20 14:43 | disposition home or self-care (01) ==
LOC: ER 10:57
DX: N39.0 Urinary tract infection, site not specified (principal); E78.5 Hyperlipidemia, unspecified; F20.9 Schizophrenia, unspecified
CPT/HCPCS: 96365; 87040 ×2; 87088; 85025; 87086; 80048; 36415; 83735; 80076; 83605; 87077; 87186; 83690; 84145; 51702; 99284; J7050; 81003; 81015

== ENCOUNTER 2020-11-27 23:53 | Emergency (ER) | payer OTHER ==
[2020-11-28 02:09] LABS: Urine Blood Trace-lysed (Negative); Urine Glucose Negative (Negative); Urine Protein Negative (Negative); Urine Specific Gravity >=1.030 (1.005-1.030); Urine pH 5.5 (5.0-7.0)
[2020-11-28 02:56] LABS: Absolute Lymphocytes (CBC) 1.3 K/uL (0.7-4.9); Basophils % 0.4 % (0-1.3); Hematocrit 41.8 % (36.0-45.0); Lymphocytes % 10.4 % (15.3-44.8); MPV 8.2 fL (7.6-11.3); RBC Red Blood Cell Count 4.63 M/uL (3.86-4.86)
[2020-11-28 03:17] LABS: ALT/SGPT 41 U/L (12-78); AST/SGOT 46 U/L (15-37); Albumin 3.4 g/dL (3.4-5.0); Alkaline Phosphatase 290 U/L (45-117); Amylase 70 U/L (25-115); BUN Blood Urea Nitrogen 19 mg/dL (7-18); Bicarbonate 27 mmol/L (21-32); Bilirubin Direct 0.2 mg/dL (0-0.2); Bilirubin Total 0.5 mg/dL (0.2-1.0); Creatine Phosphokinase 17 U/L (26-192); Glucose Level 141 mg/dL (74-106); Lipase 509 U/L (73-393); Potassium 3.4 mmol/L (3.5-5.1); Protein, Total 8.8 g/dL (6.4-8.2); Sodium Level 135 mmol/L (136-145); Troponin (Emerg Dept Use Only) < 0.02 ng/mL (0.0-0.045)
[2020-11-28 03:25] LABS: Protime INR 1.06
[2020-11-28 03:28] LABS: CKMB Creatine Kinase MB < 1.0 ng/mL (1.0-3.6)
[2020-11-28 03:30] LABS: Magnesium 2.2 mg/dL (1.8-2.4); NT PRO-BNP 134 pg/mL (<125)
[2020-11-28] MEDS ORDERED: NA CHLORIDE 0.9% 500 ML ONE ×2 (03:42→07:05)
[2020-11-28] MEDS ORDERED: FOLIC ACID 5 MG/ML VIAL ONE (03:43)
[2020-11-28] MEDS ORDERED: CEFTRIAXONE/SWI 1gm 1 GM/10 ML SYR ONE (04:11)
[2020-11-28] MEDS ORDERED: NA CHLORIDE 0.9% 1,000 ML ONE (04:11)
--- NOTE | 2020-11-28 04:20 | EDPHYS ---
Physician Documentation [facility] Name: Haritha Mensah Age: 75 yrs Sex: Female : 1945 Arrival Date: 11/27/2020 Time: 23:55 Bed 3 Private MD: ED Physician Milton Alberts HPI: 11/28 03:10 This 75 yrs old Female presents to ER via Wheelchair with complaints of silvia Altered Mental Status. 03:10 The patient presents with confusion, decreased responsiveness. Onset: The silvia symptoms/episode began/occurred 2 day(s) ago. Possible causes: CVA or TIA, head injury, seizure, sepsis. Associated signs and symptoms: Pertinent positives: confusion. Current symptoms: In the emergency department the patient's symptoms have improved, mildly. Patient's baseline: Neuro: alert and fully oriented. It is unknown whether or not the patient has had similar symptoms in the past. Historical: - Allergies: 00:51 No Known Allergies; bb - Home Meds: 00:51 Chlorthalidone Oral [Active]; risperidone Oral [Active]; Simvastatin Oral [Active]; bb Trazodone Oral [Active]; - PMHx: 00:51 Hyperlipidemia; Schizophrenia; bb - Immunization history:: Adult Immunizations unknown. - Social history:: Smoking status: Patient denies any tobacco usage or history of. ROS: 03:11 Constitutional: Negative for fever, chills, and weight loss, Eyes: Negative for injury, silvia pain, redness, and discharge, ENT: Negative for injury, pain, and discharge, Neck: Negative for injury, pain, and swelling, Cardiovascular: Negative for chest pain, palpitations, and edema, Respiratory: Negative for shortness of breath, cough, wheezing, and pleuritic chest pain, Abdomen/GI: Negative for abdominal pain, nausea, vomiting, diarrhea, and constipation, Back: Negative for injury and pain, : Negative for injury, bleeding, discharge, and swelling, MS/Extremity: Negative for injury and deformity, Skin: Negative for injury, rash, and discoloration, Psych: Negative for depression, anxiety, suicide ideation, homicidal ideation, and hallucinations, Allergy/Immunology: Negative for hives, rash, and allergies, Endocrine: Negative for neck swelling, polydipsia, polyuria, polyphagia, and marked weight changes, Hematologic/Lymphatic: Negative for swollen nodes, abnormal bleeding, and unusual bruising. 03:11 Neuro: Positive for altered mental status, weakness. Exam: 03:11 Constitutional: This is a well developed, well nourished patient who is awake, alert, silvia and in no acute distress. Head/Face: Normocephalic, atraumatic. Eyes: Pupils equal round and reactive to light, extra-ocular motions intact. Lids and lashes normal. Conjunctiva and sclera are non-icteric and not injected. Cornea within normal limits. Periorbital areas with no swelling, redness, or edema. ENT: Nares patent. No nasal discharge, no septal abnormalities noted. Tympanic membranes are normal and external auditory canals are clear. Oropharynx with no redness, swelling, or masses, exudates, or evidence of obstruction, uvula midline. Mucous membranes moist. Neck: Trachea midline, no thyromegaly or masses palpated, and no cervical lymphadenopathy. Supple, full range of motion without nuchal rigidity, or vertebral point tenderness. No Meningismus. Chest/axilla: Normal chest wall appearance and motion. Nontender with no deformity. No lesions are appreciated. Cardiovascular: Regular rate and rhythm with a normal S1 and S2. No gallops, murmurs, or rubs. Normal PMI, no JVD. No pulse deficits. Respiratory: Lungs have equal breath sounds bilaterally, clear to auscultation and percussion. No rales, rhonchi or wheezes noted. No increased work of breathing, no retractions or nasal flaring. Abdomen/GI: Soft, non-tender, with normal bowel sounds. No distension or tympany. No guarding or rebound. No evidence of tenderness throughout. Back: No spinal tenderness. No costovertebral tenderness. Full range of motion. Skin: Warm, dry with normal turgor. Normal color with no rashes, no lesions, and no evidence of cellulitis. MS/ Extremity: Pulses equal, no cyanosis. Neurovascular intact. Full, normal range of motion. Neuro: Awake and alert, GCS 15, oriented to person, place, time, and situation. Cranial nerves II-XII grossly intact. Motor strength 5/5 in all extremities. Sensory grossly intact. Cerebellar exam normal. Normal gait. Psych: Awake, alert, with orientation to person, place and time. Behavior, mood, and affect are within normal limits. Vital Signs: 00:47 BP 117 / 67; Pulse 102; Resp 22 S; Temp 98.5(O); Pulse Ox 95% on R/A; Weight 71.21 kg bb (R); Height 5 ft. 5 in. (165.10 cm) (R); 02:08 BP 131 / 65; Pulse 90; Resp 18; ds4 03:15 BP 124 / 63; Pulse 88; Resp 15; Pulse Ox 97% ; ds4 04:15 BP 138 / 76; Pulse 99; Resp 17; Pulse Ox 100% ; ds4 04:15 BP 136 / 64; Pulse 94; Resp 16; Pulse Ox 98% ; ds4 07:25 BP 129 / 57; Pulse 84; Resp 15; Pulse Ox 98% on R/A; hb 09:17 BP 135 / 62; Pulse 82; Resp 17; Pulse Ox 100% ; hb 10:20 BP 136 / 8; Pulse 80; Resp 15; Pulse Ox 98% on R/A; hb 11:25 BP 134 / 66; Pulse 81; Resp 16; Pulse Ox 98% on R/A; hb 12:30 BP 133 / 63; Pulse 78; Resp 16; Pulse Ox 98% ; sv 13:30 BP 133 / 60; Pulse 81; Resp 16; Pulse Ox 98% ; sv 14:14 BP 130 / 58; Pulse 81; Resp 16; Pulse Ox 97% ; sv 15:29 BP 132 / 60; Pulse 80; Resp 17; Pulse Ox 98% on R/A; hb 16:38 BP 137 / 60; Pulse 73; Resp 15; Pulse Ox 98% ; hb 17:23 BP 138 / 61; Pulse 70; Resp 14; Pulse Ox 98% on R/A; hb 00:47 Body Mass Index 26.13 (71.21 kg, 165.10 cm) bb MDM: 02:02 Patient medically screened. silvia 03:12 Differential Diagnosis: CVA, electrolyte abnormality, hypoglycemia, intracranial bleed, silvia pneumonia, sepsis, TIA, UTI, volume depletion. Data reviewed: vital signs, nurses notes, lab test result(s), EKG, radiologic studies. Data interpreted: monitoring manager: rate is 102 beats/min, rhythm is regular, Pulse oximetry: on room air is 95 %. Test interpretation: by ED physician or midlevel provider: ECG, plain radiologic studies. Counseling: I had a detailed discussion with the patient and/or guardian regarding: lab results. 10:58 ED course: Spoke with [facility] neurology team who accepted jr8 patient for further evaluation for sinus thrombosis.. 11/28 02:09 Order name: Urine Dipstick-Ancillary; Complete Time: 02:34 EDMS 11/28 02:25 Order name: Amylase, Serum jb4 11/28 02:25 Order name: Basic Metabolic Panel 4 11/28 02:25 Order name: Blood Culture Adult (2) jb4 11/28 02:25 Order name: CBC with Diff jb4 11/28 02:25 Order name: CPK jb4 11/28 02:25 Order name: Ckmb; Complete Time: 04:13 4 11/28 02:25 Order name: LFT's; Complete Time: 04:13 jb4 11/28 02:25 Order name: Lactate; Complete Time: 03:14 jb4 11/28 02:25 Order name: Lipase; Complete Time: 04:13 jb4 11/28 02:25 Order name: Procalcitonin; Complete Time: 04:13 jb4 11/28 02:25 Order name: Protime (+inr); Complete Time: 04:13 jb4 11/28 02:25 Order name: Ptt, Activated; Complete Time: 04:13 jb4 11/28 02:25 Order name: Troponin (emerg Dept Use Only); Complete Time: 04:13 jb4 11/28 02:25 Order name: Chest Single View XRAY; Complete Time: 10:54 jb4 11/28 02:26 Order name: Amylase; Complete Time: 04:13 EDMS 11/28 02:26 Order name: Basic Metabolic Panel; Complete Time: 04:13 EDMS 11/28 02:26 Order name: Blood Culture EDMS 11/28 02:26 Order name: CBC with Automated Diff; Complete Time: 03:04 EDMS 11/28 02:26 Order name: Creatine Phosphokinase; Complete Time: 04:13 EDMS 11/28 03:09 Order name: Glucose, Ancillary Testing; Complete Time: 03:14 EDMS 11/28 03:19 Order name: NT PRO-BNP; Complete Time: 04:13 EDMS 11/28 03:19 Order name: Magnesium; Complete Time: 04:13 EDMS 11/28 05:41 Order name: SARS-COV-2 RT PCR; Complete Time: 06:09 EDMS 11/28 06:26 Order name: Lactate Sepsis 2 HR Follow-up; Complete Time: 06:35 EDMS 11/28 15:46 Order name: Ptt, Activated hb 11/28 02:25 Order name: Accucheck; Complete Time: 02:59 4 11/28 02:25 Order name: Cardiac monitoring; Complete Time: 02:25 4 11/28 02:25 Order name: EKG - Nurse/Tech; Complete Time: 02:25 4 11/28 02:25 Order name: IV Saline Lock - Large Bore; Complete Time: 02:25 4 11/28 02:25 Order name: Labs collected and sent; Complete Time: 02:26 [facility] 11/28 02:25 Order name: O2 Per Protocol; Complete Time: 02:26 [facility] 11/28 02:25 Order name: O2 Sat Monitoring; Complete Time: 02:26 [facility] 11/28 02:25 Order name: Urine Dipstick-Ancillary (obtain specimen); Complete Time: 02:26 [facility] 11/28 03:06 Order name: CT Head Brain wo Cont silvia 11/28 03:10 Order name: EKG; Complete Time: 03:10 silvia 11/28 07:45 Order name: Sup. Sag. Sinus; Complete Time: 10:54 EDMS Administered Medications: 04:00 Drug: NS 0.9% 500 ml Route: IV; Rate: bolus; Site: left antecubital; jb4 04:45 Follow up: Response: No adverse reaction; IV Status: Completed infusion; IV Intake: jb4 500ml 04:00 Drug: NS 0.9% 1000 ml Route: IV; Rate: 1 bolus; Site: right antecubital; jb4 04:00 Drug: Rocephin (cefTRIAXone) 1 grams Route: IV; Rate: per protocol; Site: right jb4 antecubital; 04:02 Drug: foLIC Acid 1 mg Route: IVPB; Site: right antecubital; jb4 04:04 Follow up: IV Status: Completed infusion [facility] 05:18 Drug: Keppra (levETIRAcetam) 1000 mg Route: IV; Rate: per protocol; Site: right forearm;jb4 05:24 Drug: Potassium Effervescent Tablet 25 mEq Route: PO; jb4 06:43 Drug: NS 0.9% 500 ml Route: IV; Rate: bolus; Site: right forearm; jb4 11:15 Drug: Heparin (DVT/PE Drip) 18 units/kg/hr - (HEParin 28902 units, D5W 500 ml) hb {Co-Signature: sv (Yen Sow RN).} Route: IV; Rate: calculated rate; Site: right forearm; Disposition: 11/29 07:19 Co-signature as Attending Physician, Milton Alberts MD I agree with the assessment and silvia plan of care. Disposition Summary: 11/28/20 04:20 Transfer Ordered Transfer Location: [facility] [place] Reason: Higher level of care silvia Condition: Fair silvia Problem: new silvia Symptoms: are unchanged silvia Accepting Physician: to [facility](11/28/20 19:00) hb Diagnosis - Altered mental status, unspecified silvia - Hypokalemia silvia - Abnormal brain scan - straight dural venous thrombus(11/28/20 06:11) silvia - Elevated white blood cell count, unspecified silvia Forms: - Medication Reconciliation Form silvia - SBAR form silvia Signatures: Dispatcher [employer] EDMilton Leonardo MD MD cha Ballard, Brenda, RN RN Mateo Zamora PA PA jr8 Francois Oliva, ENERGY CONSULTANT-C ENERGY CONSULTANT-Cla1 Miladis Schilling, RN RN Milton Bourgeois, RN RN jb4 Yen mcgovern Corrections: (The following items were deleted from the chart) 11/28 03:12 03:10 IV Saline Lock ordered. [place] [id number] 03:17 03:10 MAGNESIUM+C.LAB.BRZ ordered. EDMS EDMS 03:17 03:10 PROBNP+C.LAB.BRZ ordered. EDMS EDMS 03:22 03:16 CORONAVIRUS+MR.LAB.BRZ ordered. EDMS EDMS 04:57 04:20 [address] [facility] silvia 06:11 04:20 Abnormal brain scan - dural venous thrombus silvia silvia 06:11 04:57 to [facility] silvia silvia 07:45 07:24 Brain Wo Cont ordered. EDMS EDMS 19:00 06:11 to [facility] hb
--- NOTE | 2020-11-28 04:20 | ER ---
Nurse's Notes [facility] Name: Haritha Mensah Age: 75 yrs Sex: Female : 1945 Arrival Date: 11/27/2020 Time: 23:55 Bed 3 Private MD: Diagnosis: Altered mental status, unspecified;Abnormal brain scan- straight dural venous thrombus;Hypokalemia;Elevated white blood cell count, unspecified Presentation: 11/28 00:47 Chief complaint: Patient's son or daughter states: her sister called her to report her bb mother was not acting her normal self, was standing in the house looking lost, pt was incontinent of urine. Coronavirus screen: At this time, the client does not indicate any symptoms associated with coronavirus-19. Ebola Screen: No symptoms or risks identified at this time. Initial Sepsis Screen: Does the patient meet any 2 criteria? RR > 20 per min. HR > 90 bpm. Yes Does the patient have a suspected source of infection? Yes: Other: unknown. Risk Assessment: Do you want to hurt yourself or someone else? Patient reports no desire to harm self or others. Onset of symptoms was November 27, 2020. 00:47 Method Of Arrival: Wheelchair bb 00:47 Acuity: OFE 2 bb Triage Assessment: 00:51 General: Appears in no apparent distress. unkempt, Behavior is flat, listless. Pain: bb Unable to use pain scale. Patient is disoriented. Neuro: Level of Consciousness is awake, listless, Oriented to none. Cardiovascular: Capillary refill < 3 seconds Patient's skin is warm and dry. Respiratory: Respiratory effort is unlabored, Respiratory pattern is symmetrical. GI: No signs and/or symptoms were reported involving the gastrointestinal system. Derm: Skin is pink, warm \\T\\ dry. Musculoskeletal: Circulation, motion, and sensation intact. Historical: - Allergies: 00:51 No Known Allergies; bb - Home Meds: 00:51 Chlorthalidone Oral [Active]; risperidone Oral [Active]; Simvastatin Oral [Active]; bb Trazodone Oral [Active]; - PMHx: 00:51 Hyperlipidemia; Schizophrenia; bb - Immunization history:: Adult Immunizations unknown. - Social history:: Smoking status: Patient denies any tobacco usage or history of. Assessment: 01:45 General: Appears in no apparent distress. uncomfortable, Behavior is calm, cooperative. jb4 Pain: Unable to use pain scale. Patient is disoriented. Neuro: Level of Consciousness is awake, obeys commands, confused, Oriented to none. Cardiovascular: Patient's skin is warm and dry. Respiratory: Airway is patent Respiratory effort is even, unlabored, Respiratory pattern is regular, symmetrical. GI: No signs and/or symptoms were reported involving the gastrointestinal system. : No signs and/or symptoms were reported regarding the genitourinary system. EENT: No signs and/or symptoms were reported regarding the EENT system. Derm: Skin is intact, Skin is pink, warm \\T\\ dry. Musculoskeletal: Circulation, motion, and sensation intact. Range of motion: intact in all extremities. 03:00 Reassessment: Patient appears in no apparent distress at this time. No changes from jb4 previously documented assessment. Patient and/or family updated on plan of care and expected duration. Pain level reassessed. 04:00 Reassessment: Patient appears in no apparent distress at this time. No changes from jb4 previously documented assessment. Patient and/or family updated on plan of care and expected duration. Pain level reassessed. 05:00 Reassessment: Patient appears in no apparent distress at this time. No changes from jb4 previously documented assessment. Patient and/or family updated on plan of care and expected duration. Pain level reassessed. 07:25 Reassessment: Patient appears in no apparent distress at this time. Patient and/or hb family updated on plan of care and expected duration. Pain level reassessed. Daughter remains at bedside. 08:30 Reassessment: Patient appears in no apparent distress at this time. No changes from previously documented assessment. Patient and/or family updated on plan of care and expected duration. Pain level reassessed. 09:16 Reassessment: Patient appears in no apparent distress at this time. No changes from previously documented assessment. Patient and/or family updated on plan of care and expected duration. Pain level reassessed. 10:54 Reassessment: Patient appears in no apparent distress at this time. No changes from hb previously documented assessment. Patient and/or family updated on plan of care and expected duration. Pain level reassessed. 11:25 Reassessment: Patient appears in no apparent distress at this time. No changes from hb previously documented assessment. Patient and/or family updated on plan of care and expected duration. Pain level reassessed. 12:30 Reassessment: Patient appears in no apparent distress at this time. No changes from sv previously documented assessment. Patient and/or family updated on plan of care and expected duration. Pain level reassessed. 14:13 Reassessment: Patient appears in no apparent distress at this time. No changes from sv previously documented assessment. Patient and/or family updated on plan of care and expected duration. Pain level reassessed. 15:29 Reassessment: Patient appears in no apparent distress at this time. No changes from hb previously documented assessment. Patient and/or family updated on plan of care and expected duration. Pain level reassessed. 16:38 Reassessment: Patient appears in no apparent distress at this time. No changes from hb previously documented assessment. Patient and/or family updated on plan of care and expected duration. Pain level reassessed. 17:23 Reassessment: Patient appears in no apparent distress at this time. No changes from hb previously documented assessment. Patient and/or family updated on plan of care and expected duration. Pain level reassessed. 18:43 Reassessment: Report called to Charge Nurse Ursula MAY at [facility]. hb Vital Signs: 00:47 BP 117 / 67; Pulse 102; Resp 22 S; Temp 98.5(O); Pulse Ox 95% on R/A; Weight 71.21 kg bb (R); Height 5 ft. 5 in. (165.10 cm) (R); 02:08 BP 131 / 65; Pulse 90; Resp 18; ds4 03:15 BP 124 / 63; Pulse 88; Resp 15; Pulse Ox 97% ; ds4 04:15 BP 138 / 76; Pulse 99; Resp 17; Pulse Ox 100% ; ds4 04:15 BP 136 / 64; Pulse 94; Resp 16; Pulse Ox 98% ; ds4 07:25 BP 129 / 57; Pulse 84; Resp 15; Pulse Ox 98% on R/A; hb 09:17 BP 135 / 62; Pulse 82; Resp 17; Pulse Ox 100% ; hb 10:20 BP 136 / 8; Pulse 80; Resp 15; Pulse Ox 98% on R/A; hb 11:25 BP 134 / 66; Pulse 81; Resp 16; Pulse Ox 98% on R/A; hb 12:30 BP 133 / 63; Pulse 78; Resp 16; Pulse Ox 98% ; sv 13:30 BP 133 / 60; Pulse 81; Resp 16; Pulse Ox 98% ; sv 14:14 BP 130 / 58; Pulse 81; Resp 16; Pulse Ox 97% ; sv 15:29 BP 132 / 60; Pulse 80; Resp 17; Pulse Ox 98% on R/A; hb 16:38 BP 137 / 60; Pulse 73; Resp 15; Pulse Ox 98% ; hb 17:23 BP 138 / 61; Pulse 70; Resp 14; Pulse Ox 98% on R/A; hb 00:47 Body Mass Index 26.13 (71.21 kg, 165.10 cm) bb ED Course: 11/27 23:55 Patient arrived in ED. 11/28 00:51 Triage completed. bb 00:51 Arm band placed on Patient placed in waiting room, Patient notified of wait time. bb Family accompanied patient. 01:41 Milton Bourgeois, RN is Primary Nurse. jb4 02:00 Milton Alberts MD is Attending Physician. silvia 02:01 Inserted saline lock: 22 gauge in right forearm, using aseptic technique. ds4 02:01 Inserted saline lock: 24 gauge in left forearm, using aseptic technique. ds4 03:40 CT Head Brain wo Cont In Process Unspecified. EDMS 04:02 Chest Single View XRAY In Process Unspecified. EDMS 04:24 initiated a transfer with Makayla from [facility]. mw2 04:41 initiated a transfer with Deanna from [facility]. mw2 04:57 All [facility] denied due to capacity. [facility] denied due to [facility] capacity, but Deanna the bariatric program coordinator stated "the [employer] said to call back after shift change because we should be able to get her a bed.". 07:29 Primary Nurse role handed off by Milton Bourgeois, RN bd 07:55 Sup. Sag. Sinus In Process Unspecified. EDMS 09:17 re initiated transfer to [facility]. bd 18:29 pt accepted in transfer to [facility] by dr Hunter admin approval given by blake Llanos. Administered Medications: 04:00 Drug: NS 0.9% 500 ml Route: IV; Rate: bolus; Site: left antecubital; jb4 04:45 Follow up: Response: No adverse reaction; IV Status: Completed infusion; IV Intake: jb4 500ml 04:00 Drug: NS 0.9% 1000 ml Route: IV; Rate: 1 bolus; Site: right antecubital; jb4 04:00 Drug: Rocephin (cefTRIAXone) 1 grams Route: IV; Rate: per protocol; Site: right jb4 antecubital; 04:02 Drug: foLIC Acid 1 mg Route: IVPB; Site: right antecubital; jb4 04:04 Follow up: IV Status: Completed infusion jb4 05:18 Drug: Keppra (levETIRAcetam) 1000 mg Route: IV; Rate: per protocol; Site: right forearm;jb4 05:24 Drug: Potassium Effervescent Tablet 25 mEq Route: PO; jb4 06:43 Drug: NS 0.9% 500 ml Route: IV; Rate: bolus; Site: right forearm; jb4 11:15 Drug: Heparin (DVT/PE Drip) 18 units/kg/hr - (HEParin 31789 units, D5W 500 ml) hb {Co-Signature: shaniqua (Yen Sow RN).} Route: IV; Rate: calculated rate; Site: right forearm; Intake: 04:45 IV: 500ml; Total: 500ml. jb4 Outcome: 04:20 ER care complete, transfer ordered by MD. vega 19:00 Patient left the ED. hb Signatures: Dispatcher [employer] EDMS Sheyla Simmons Stephanie, RN RN sv Anderson, Corey, MD MD cha Ballard, Brenda, RN RN bb Swanson, Donovan ds4 Miladis Schilling RN RN Milton Bourgeois RN RN jb4 Eamon Kwok 2 Kari Haile Yen mcgovern
[2020-11-28] MEDS ORDERED: LEVETIRACETAM 500 MG/5 ML VIAL IV ONE (05:27)
[2020-11-28] MEDS ORDERED: NA CHLORIDE 0.9% 100 ML ONE (05:27)
[2020-11-28] MEDS ORDERED: POTASSIUM 25 MEQ EFFERV TAB ONE (05:27)
--- NOTE | 2020-11-28 07:11 | RAD REPORT ---
EXAM DESCRIPTION: RAD - Chest Single View - 11/28/2020 4:02 am CLINICAL HISTORY: Altered Mental Status COMPARISON: Chest Pa And Lat (2 Views) dated 11/14/2020; Chest Single View dated 08/28/2020; Chest Sing le View dated 04/21/2019; CHEST SINGLE VIEW dated 05/26/2010 FINDINGS: Hazy opacification of the left lung base. This is new from prior. The heart size is within normal limits.No acute osseous abnormality. No significant pleural effusions or pneumothorax. IMPRESSION: Increased hazy opacification of the left lung base may be secondary to overlapping soft tissues versus acute airspace process such as pneumonia.
--- NOTE | 2020-11-28 08:24 | RAD REPORT ---
EXAM DESCRIPTION: MRI - Sup. Sag. Sinus - 11/28/2020 7:56 am CLINICAL HISTORY: r/o venous thrombus COMPARISON: Head Brain Wo Cont dated 04/21/2019; Head Brain Wo Cont dated 11/28/2020; Chest Abd Pelvis Wo Con dated 08/28/2020 FINDINGS: The straight sinus and inferior sagittal sinus are not visualized. The left transverse sin us is also not visualized along much of its course. It does reconstitute closer to the sigmoid sinus. The superior sagittal sinus is patent. The right transverse sinus is patent. IMPRESSION: Nonvisualized straight sinus, inferior sagittal sinus, and portions of the left transver se sinus which are presumably thrombosed.
--- NOTE | 2020-11-28 09:57 | RAD REPORT ---
EXAM DESCRIPTION: CT - Head Brain Wo Cont - 11/28/2020 4:15 am CLINICAL HISTORY: Dizziness;Mental status change COMPARISON: 04/21/2019 TECHNIQUE: Axial CT of the head obtained from the skull apex to the skull base without contrast. Thi s exam was performed according to our departmental dose-optimization program, which includes automate d exposure control, adjustment of the mA and/or kV according to patient size and/or use of iterative reconstruction technique. FINDINGS: No acute intracranial hemorrhage identified. No mass, mass effect, shift of the midline, a bnormal extra-axial fluid collection or CT evidence of acute ischemic change identified. The ventricu lar system and sulcal spaces are mildly enlarged compatible with mild cerebral atrophy. Scattered a reas of hypodensity throughout the supratentorial white matter are nonspecific and may be related to chronic small vessel ischemic change. Increased density along the straight sinus relative to the othe r sinuses. The visualized paranasal sinuses and mastoid air cells are well aerated. No skull fracture identifi ed. Visualized orbits and globes are unremarkable. Atherosclerotic calcification of the intracranial internal carotid arteries. IMPRESSION: 1. No acute intracranial hemorrhage. 2. There is increased density along the straight sinus relative to the other dural venous sinuses. Correlation for recent contrast administration recommended. If there is no history of recent contrast administration, straight sinus dural venous thrombosis could also produce this appearance. MRV would be recommended for more complete characterization. Electronically signed by: Iban Hudson 11/28/2020 3:57 AM CDT Due to temporary technical issues with the PACS/Fluency reporting system, reports are being signed by the in house radiologist without review as a courtesy to ensure prompt reporting. The interpreting r adiologist is fully responsible for the content of the report.
[2020-11-28] MEDS ORDERED: HEPARIN/D5W 25,000 UNIT/500 ML BAG IV ONE (12:09)
--- NOTE | 2020-11-28 16:25 | EKG ---
Test Date: 2020-11-28 Test Time: 02:43:26 Siding Coreboard Inspector: KOFI MEASUREMENT RESULTS: Intervals: Rate: 92 VA: 210 QRSD: 80 QT: 362 QTc: 447 [place]: P: 76 VA: 210 QRS: 91 T: 69 INTERPRETIVE STATEMENTS: Sinus rhythm with 1st degree AV block Rightward axis Borderline ECG Compared to ECG 11/15/2020 14:33:20 First degree AV block now present Right-axis deviation now present Electronically Signed On 11-28-20 16:22:57 CDT by Tirso Thakur
[2020-11-28 19:14] VITALS: TEMP 98.5
[2020-11-28 19:37] VITALS: O2SAT 98
[2020-11-28 19:41] VITALS: BP 138/61
== END 2020-11-28 19:00 | disposition short-term general hospital (02) ==
LOC: ER 23:53
DX: I67.6 Nonpyogenic thrombosis of intracranial venous system (principal); E87.6 Hypokalemia; R94.02 Abnormal brain scan; D72.829 Elevated white blood cell count, unspecified; I10 Essential (primary) hypertension; F20.9 Schizophrenia, unspecified; Z20.822 Contact with and (suspected) exposure to COVID-19
CPT/HCPCS: 93005; 87040 ×2; 85025; 80048; 36415; 82150; 83735; 82550; 85610; 82947; 80076; 83605 ×2; 85730 ×2; 81003; 84484; 82553; 83690; 84145; 83880; 70450; 71045; 70544; 99284; U0003; J1953; J0696; J7040 ×2; J7030; J1644

== ENCOUNTER 2021-11-20 11:35 | Emergency (ER) | payer MEDICARE, OTHER ==
--- OUTSIDE RECORDS SUMMARY | 2021-11-20 11:39 | XMS REPORT | Continuity of Care Document ---
:1945 Author Organization [facility] t Address [address] [place] [address] Care Team Providers Name Role Phone MITCHELL REDMAN JR Primary Care Physician Unavailable ISA SCHMITZ Attending Clinician Unavailable THEA DOMINGUEZ Attending Clinician Unavailable ISA SCHMITZ Admitting Clinician Unavailable Payers Payer Name Policy Type Policy Number Effective Date Expiration Date Gatito chamberlain [facility] [id number] 2020 HMO 00:00:00 [place] [id number] [facility] [id number] (MEDICARE 00:00:00 REPLACEMENT HMO) Problems This patient has no known problems. Allergies, Adverse Reactions, Alerts Allergy Allergy Status Severity Reaction(s) Onset Inactive Treating Comm ents Source Name Type Date Date Clinician NO KNOWN Allergy Active [facility] Medications This patient has no known medications. Vital Signs Vital Name Observation Time Observation Value Comments Source WEIGHT 2020-11-30 06:00:00 69.429 kg HEIGHT 2020-11-28 20:29:00 165.1 cm WEIGHT 2020-11-28 20:29:00 70.3 kg WEIGHT 2020-11-30 06:00:00 69.429 kg HEIGHT 2020-11-28 20:29:00 165.1 cm WEIGHT 2020-11-28 20:29:00 70.3 kg Procedures This patient has no known procedures. Encounters Start End Encounter Admission Attending Care Care Encounter Source Date/Time Date/Time Type Type Clinicians Facility Department ID 2020-11-28 Inpatient ER NADIR [facility] Neurology [id number] [facility] 20:05:00 ISA 2021-10-25 2021-10-25 Outpatient [facility] [id number] [facility] 06:20:00 06:20:00 [facility] 2021-02-25 2021-02-25 Outpatient DMG DMJosseline [id number] [facility] 08:00:00 08:00:00 1115 [facility] 2020-12-19 2020-12-19 Outpatient ADAL DOMINGUEZ [facility] [id number] SLE 00:00:00 00:00:00 BIJI 2020-12-13 2020-12-13 Outpatient ADAL DOMINGUEZ [facility] [id number] SLE 00:00:00 00:00:00 BIJI Results Test Description Test Time Test Comments Results Result Comments Source BLOOD CULTURE 2020-12-03 23:00:00 Test Item Value Reference Range Interpretation Comme nts CULTURE (BEAKER) (test code = 1095) No growth in 5 days BLOOD [id number] 23:00:00 Test Item Value Reference Range Interpretation Comments CULTURE (BEAKER) (test No growth in 5 days code = 1095) PROTEIN C [id number] 12:25:00 Test Item Value Reference Range Interpretation Comments PROTEIN C ACTIVITY (BEAKER) (test code 79.0 % 70.0-130.0 = 582) COMPREHENSIVE METABOLIC [id number] 06:33:00 Test Item Value Reference Range Interpretation Comments TOTAL PROTEIN 6.7 gm/dL 6.0-8.3 (BEAKER) (test code = 770) ALBUMIN (BEAKER) 3.2 g/dL 3.5-5.0 L (test code = 1145) ALKALINE PHOSPHATASE 228 U/L 40-150 H (BEAKER) (test code = 346) BILIRUBIN TOTAL 0.5 mg/dL 0.2-1.2 (BEAKER) (test code = 377) SODIUM (BEAKER) (test 134 meq/L 136-145 L code = 381) POTASSIUM (BEAKER) 3.8 meq/L 3.5-5.1 (test code = 379) CHLORIDE (BEAKER) 101 meq/L 98-107 (test code = 382) CO2 (BEAKER) (test 24 meq/L 22-29 code = 355) BLOOD UREA NITROGEN 18 mg/dL 7-21 (BEAKER) (test code = 354) CREATININE (BEAKER) 0.73 mg/dL 0.57-1.25 (test code = 358) GLUCOSE RANDOM 105 mg/dL 70-105 (BEAKER) (test code = 652) CALCIUM (BEAKER) 8.5 mg/dL 8.4-10.2 (test code = 697) AST (SGOT) (BEAKER) 34 U/L 5-34 (test code = 353) ALT (SGPT) (BEAKER) 24 U/L 6-55 (test code = 347) EGFR (BEAKER) (test 78 mL/min/1.73 ESTIMA SAIGE GFR IS code = 1092) sq m NOT ACCURATE CREATININE CLEARANCE IN PREDICTING GLOMERULAR FILTRATION RATE . ESTIMATED GFR I S NOT APPLICABLE FOR DIALYSIS PATIEN TS. Set Up Person ID - HEIDI [id number] 06:33:00 Test Item Value Reference Range Interpretation Comments MAGNESIUM (BEAKER) (test code = 1.9 mg/dL 1.6-2.6 627) Set Up Person ID - HEIDI [id number] 06:33:00 Test Item Value Reference Range Interpretation Comments PHOSPHORUS (BEAKER) (test code = 3.1 mg/dL 2.3-4.7 604) Set Up Person ID - HEIDI LHIGH SENSITIVITY TROPONIN [id number] 05:36:00 Test Item Value Reference Range Interpretation Comments HIGH SENSITIVITY < pg/ml See_Comment [Automated message] TROPONIN I (test code = The system which [id number]) generated this result transmitted ref erence range: <=17. Th e reference range was not used to interpr et this result as normal/abnormal . Set Up Person ID - HEIDI LThe DIRECTOR OF SALES SUPPORT STAT High Sensitivity Troponin-I results should be used in conjunction with other diagnostic information such as ECG, clinical observations and information, and patient symptoms to aid in the diagnosis of [place].CBC W/PLT COUNT & AUTO [id number] 05:15:00 Test Item Value Reference Range Interpretation Comments WHITE BLOOD CELL COUNT (BEAKER) 11.3 K/ L 3.5-10.5 H (test code = 775) RED BLOOD CELL COUNT (BEAKER) 4.48 M/ L 3.93-5.22 (test code = 761) HEMOGLOBIN (BEAKER) (test code = 13.3 GM/DL 11.2-15.7 410) HEMATOCRIT (BEAKER) (test code = 40.8 % 34.1-44.9 411) MEAN CORPUSCULAR VOLUME (BEAKER) 91.1 fL 79.4-94.8 (test code = 753) MEAN CORPUSCULAR HEMOGLOBIN 29.7 pg 25.6-32.2 (BEAKER) (test code = 751) MEAN CORPUSCULAR HEMOGLOBIN CONC 32.6 GM/DL 32.2-35.5 (BEAKER) (test code = 752) RED CELL DISTRIBUTION WIDTH 12.3 % 11.7-14.4 (BEAKER) (test code = 412) PLATELET COUNT (BEAKER) (test 272 K/CU MM 150-450 code = 756) MEAN PLATELET VOLUME (BEAKER) 9.5 fL 9.4-12.3 (test code = 754) NUCLEATED RED BLOOD CELLS 0 /100 WBC 0-0 (BEAKER) (test code = 413) NEUTROPHILS RELATIVE PERCENT 64 % (BEAKER) (test code = 429) LYMPHOCYTES RELATIVE PERCENT 23 % (BEAKER) (test code = 430) MONOCYTES RELATIVE PERCENT 9 % (BEAKER) (test code = 431) EOSINOPHILS RELATIVE PERCENT 3 % (BEAKER) (test code = 432) BASOPHILS RELATIVE PERCENT 1 % (BEAKER) (test code = 437) NEUTROPHILS ABSOLUTE COUNT 7.25 K/ L 1.56-6.13 H (BEAKER) (test code = 670) LYMPHOCYTES ABSOLUTE COUNT 2.58 K/ L 1.18-3.74 (BEAKER) (test code = 414) MONOCYTES ABSOLUTE COUNT (BEAKER) 1.06 K/ L 0.24-0.36 H (test code = 415) EOSINOPHILS ABSOLUTE COUNT 0.29 K/ L 0.04-0.36 (BEAKER) (test code = 416) BASOPHILS ABSOLUTE COUNT (BEAKER) 0.08 K/ L 0.01-0.08 (test code = 417) IMMATURE GRANULOCYTES-RELATIVE 1 % 0-1 PERCENT (BEAKER) (test code = 2801) [id number] 14:43:00 Test Item Value Reference Range Interpretation Comments RPR SCREEN (BEAKER) (test code = Nonreactive Nonreactive 420) URINALYSIS W/ REFLEX URINE [id number] 10:35:00 Test Item Value Reference Range Interpretation Comments COLOR (BEAKER) (test code = 470) Light Yellow CLARITY (BEAKER) (test code = Clear 469) SPECIFIC GRAVITY UA (BEAKER) 1.013 1.001-1.035 (test code = 468) PH UA (BEAKER) (test code = 467) 7.0 5.0-8.0 PROTEIN UA (BEAKER) (test code = Negative Negative 464) GLUCOSE UA (BEAKER) (test code = Negative Negative 365) KETONES UA (BEAKER) (test code = Negative Negative 371) BILIRUBIN UA (BEAKER) (test code Negative Negative = 462) BLOOD UA (BEAKER) (test code = Negative Negative 461) NITRITE UA (BEAKER) (test code = Negative Negative 465) LEUKOCYTE ESTERASE UA (BEAKER) Negative Negative (test code = 466) UROBILINOGEN UA (BEAKER) (test 0.2 mg/dL 0.2-1.0 code = 463) RBC UA (BEAKER) (test code = 1 /HPF 519) WBC UA (BEAKER) (test code = 2 /HPF 520) BACTERIA (BEAKER) (test code = None Seen 517) SQUAMOUS EPITHELIAL (BEAKER) < /HPF (test code = 516) CRYSTALS, URINE (BEAKER) (test None Seen code = 1521) AMORPHOUS CRYSTALS (BEAKER) Occasional (test code = 1584) SOURCE(BEAKER) (test code = 2795) Set Up Person ID - [auto]Set Up Person ID - techMR, BRAIN, WITHOUT [id number] 10:14:00Unlisted Reason for Exam - Click Yes and Enter Reason Below->No [facility] 1945 Sex: FFINAL REPORT MR, BRAIN, WITHOUT CONTRAST, MR, MRA, BRAIN, WITHOUT CONTRAST INDICATION: Stroke, follow up TECHNIQUE: Multiplanar, multisequence MR images of the brain. 3-D time of flightMRA of the cranial and cervical circulation described 3D MIP angiographic post-processing was performed. Two- dimensional eyxj-se-uogewq MR venogram of the brain in the coronal and axial plane was obtained, with three-dimensional reconstructed images COMPARISON: None FINDINGS: MRI BRAIN: Brain parenchyma is normal in morphology. Midline structures are normally developed. No restricted diffusion to suggest recent ischemic insult. No abnormal susceptibility. Disproportionate volume loss within the temporal lobes. Scattered T2/FLAIR hyperintense foci within the periventricular and subcortical white matter are nonspecific. No hydrocephalus. Orbits are within normal limits. No obstructive paranasal sinus disease. Additional findings: None. MRA BRAIN:Internal carotid arteries: Normal flow related enhancement without flow-limiting stenosisMiddle cerebral arteries: Normal flow related enhancement within the bilateral MCA M1-M2 segments Anterior cerebral arteries: Normal flow-related enhancement within the bilateral SAVANNAH A1- A2 segments without flow limiting stenosisBasilar system: Normal flow-related enhancement within the bilateral V4 segments and the basilar artery Posterior cerebral arteries: Normal flow-related enhancement within the bilateral BUCKLE ATTACHER P1- P2 segments Additional findings: None. 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 The remainder the dural venous sinuses are patent. IMPRESSION: No acute ischemia or parenchymal hemorrhage. 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 No flow limiting stenosis in the major branch vessels of thecranial arterial circulation. Signed: Akosua Gill MDReport Verified Date/Time: 11/29/2020 10:14:39 Reading Location: [address] Neuro Reading Room MR, MRA, BRAIN, WITHOUT [id number] 10:14:00 Unlisted Reason for Exam - Click Yes and Enter Reason Below->YesUnlisted Reason for Exam->Venous sinus thromosis [facility] 1945 Sex: FFINAL REPORT MR, BRAIN, WITHOUT CONTRAST, MR, MRA, BRAIN, WITHOUT CONTRAST INDICATION: Stroke, follow up TECHNIQUE: Multiplanar, multisequence MR images of the brain. 3-D time of flight MRA of the cranial and cervical circulation described 3D MIP angiographic post-processing was performed. Two- dimensional ohwd-cd-bofjdd MR venogram of the brain in the coronal and axial plane was obtained, with three-dimensional reconstructed images COMPARISON: None FINDINGS: MRI BRAIN: Brain parenchyma is normal in morphology. Midline structures are normally developed. No restricted diffusion to suggest recent ischemic insult. No abnormal susceptibility. Disproportionate volume loss within the temporal lobes. Scattered T2/FLAIR hyperintense foci within the periventricular and subcortical white matter are nonspecific. No hydrocephalus. Orbits are within normal limits. No obstructive paranasal sinus disease. Additional findings: None. MRA BRAIN:Internal carotid arteries: Normal flow related enhancement without flow-limiting stenosisMiddle cerebral arteries: Normal flow related enhancement withinthe bilateral MCA M1-M2 segments Anterior cerebral arteries: Normal flow-related enhancement within the bilateral SAVANNAH A1- A2 segments without flow limiting stenosisBasilar system: Normal flow-related enhancement within the bilateral V4 segments and the basilar artery Posterior cerebral arteries: Normalflow-related enhancement within the bilateral BUCKLE ATTACHER P1-P2 segments Additional findings: None. 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 The remainder the dural venous sinuses are patent. IMPRESSION: No acute ischemia or parenchymal hemorrhage. 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 No flow limiting stenosis in the major branch vessels of the cranial arterial circulation. Signed: Akosua Gill Verified Date/Time: 11/29/2020 10:14:39 Reading Location: [address] Neuro Reading Room RAD, CHEST, 1 VIEW, NON [id number] 07:55:00Reason for exam:->infectious work upShould this be performed at the bedside?->Yes [facility] 1945 Sex: FFINAL REPORT CLINICAL HISTORY: infectious work up TECHNIQUE: 1 view of the chest COMPARISON: None IMPRESSION: There is minimal left lung base atelectasis. There is no lobar consolidation or significant pleural fluid. The cardiomediastinal silhouette is within normal limits for size. The visualized bones are intact. Signed: Bart Granados Verified Date/Time: 11/29/2020 07:55:21Reading Location: [facility] Radiology Reading Room HEMOGLOBIN [id number] 07:38:00 Test Item Value Reference Range Interpretation Comments HEMOGLOBIN A1C (BEAKER) (test code = 5.4 % 4.3-6.1 368) C-REACTIVE [id number] 05:42:00 Test Item Value Reference Range Interpretation Comments C-REACTIVE PROTEIN (BEAKER) (test 2.80 mg/dL 0.00-0.50 H code = 676) Set Up Person ID - BALBINA [id number] 04:39:00 Test Item Value Reference Range Interpretation Comments MAGNESIUM (BEAKER) 2.4 mg/dL 1.6-2.6 Specimen slightly (test code = 627) hemolyzed Set Up Person ID - BALBINA [id number] 04:39:00 Test Item Value Reference Range Interpretation Comments PHOSPHORUS (BEAKER) 2.6 mg/dL 2.3-4.7 Specimen slightly (test code = 604) hemolyzed Set Up Person ID - BALBINA MCOMPREHENSIVE METABOLIC [id number] 04:39:00 Test Item Value Reference Range Interpretation Comments TOTAL PROTEIN 7.0 gm/dL 6.0-8.3 Specimen sligh tly (BEAKER) (test code = hemoly zed 770) ALBUMIN (BEAKER) 3.2 g/dL 3.5-5.0 L Specimen sl ightly (test code = 1145) hemolyzed ALKALINE PHOSPHATASE 217 U/L 40-150 H (BEAKER) (test code = 346) BILIRUBIN TOTAL 0.8 mg/dL 0.2-1.2 Specimen sli ghtly (BEAKER) (test code = hemoly zed 377) SODIUM (BEAKER) (test 132 meq/L 136-145 L code = 381) POTASSIUM (BEAKER) 3.6 meq/L 3.5-5.1 Specimen slightly (test code = 379) hemolyzed CHLORIDE (BEAKER) 100 meq/L 98-107 (test code = 382) CO2 (BEAKER) (test 23 meq/L 22-29 code = 355) BLOOD UREA NITROGEN 10 mg/dL 7-21 (BEAKER) (test code = 354) CREATININE (BEAKER) 0.61 mg/dL 0.57-1.25 Specimen slightly (test code = 358) hemolyzed GLUCOSE RANDOM 101 mg/dL 70-105 (BEAKER) (test code = 652) CALCIUM (BEAKER) 8.3 mg/dL 8.4-10.2 L (test code = 697) AST (SGOT) (BEAKER) 32 U/L 5-34 Specimen slightly (test code = 353) hemolyzed ALT (SGPT) (BEAKER) 22 U/L 6-55 Specimen slightly (test code = 347) hemolyzed EGFR (BEAKER) (test 96 mL/min/1.73 ESTIMA SAIGE GFR IS code = 1092) sq m NOT ACCURATE CREATININE CLEARANCE IN PREDICTING GLOMERULAR FILTRATION RATE . ESTIMATED GFR I S NOT APPLICABLE FOR DIALYSIS PATIEN TS. Set Up Person ID - BALBINA [id number] 04:27:00 Test Item Value Reference Range Interpretation Comments PARTIAL THROMBOPLASTIN TIME 39.4 seconds 22.5-36.0 H (BEAKER) (test code = 760) PROTHROMBIN [id number] 04:27:00 Test Item Value Reference Range Interpretation Comments PROTIME (BEAKER) 14.3 seconds 11.9-14.2 H (test code = 759) INR (BEAKER) (test 1.13 See_Comment [Automat ed message] code = 370) The system [employer] generated this result transmitted ref erence range: <=5.90. The reference range was not used to int erpret this result as normal/abnormal . RECOMMENDED COUMADIN/WARFARIN INR THERAPY RANGESSTANDARD DOSE: 2.0 - 3.0 Includes: PROPHYLAXIS for venous thrombosis, systemic embolization; TREATMENT for venous thrombosis and/or pulmonary embolus.HIGH RISK: Target INR is 2.5-3.5 for patients with mechanical heart valves.[id number] 04:27:00 Test Item Value Reference Range Interpretation Comments PARTIAL THROMBOPLASTIN TIME 40.3 seconds 22.5-36.0 H (BEAKER) (test code = 760) CBC W/PLT COUNT & AUTO [id number] 04:15:00 Test Item Value Reference Range Interpretation Comments WHITE BLOOD CELL COUNT (BEAKER) 13.1 K/ L 3.5-10.5 H (test code = 775) RED BLOOD CELL COUNT (BEAKER) 4.38 M/ L 3.93-5.22 (test code = 761) HEMOGLOBIN (BEAKER) (test code = 13.0 GM/DL 11.2-15.7 410) HEMATOCRIT (BEAKER) (test code = 39.9 % 34.1-44.9 411) MEAN CORPUSCULAR VOLUME (BEAKER) 91.1 fL 79.4-94.8 (test code = 753) MEAN CORPUSCULAR HEMOGLOBIN 29.7 pg 25.6-32.2 (BEAKER) (test code = 751) MEAN CORPUSCULAR HEMOGLOBIN CONC 32.6 GM/DL 32.2-35.5 (BEAKER) (test code = 752) RED CELL DISTRIBUTION WIDTH 12.2 % 11.7-14.4 (BEAKER) (test code = 412) PLATELET COUNT (BEAKER) (test 259 K/CU MM 150-450 code = 756) MEAN PLATELET VOLUME (BEAKER) 9.4 fL 9.4-12.3 (test code = 754) NUCLEATED RED BLOOD CELLS 0 /100 WBC 0-0 (BEAKER) (test code = 413) NEUTROPHILS RELATIVE PERCENT 71 % (BEAKER) (test code = 429) LYMPHOCYTES RELATIVE PERCENT 18 % (BEAKER) (test code = 430) MONOCYTES RELATIVE PERCENT 9 % (BEAKER) (test code = 431) EOSINOPHILS RELATIVE PERCENT 2 % (BEAKER) (test code = 432) BASOPHILS RELATIVE PERCENT 1 % (BEAKER) (test code = 437) NEUTROPHILS ABSOLUTE COUNT 9.34 K/ L 1.56-6.13 H (BEAKER) (test code = 670) LYMPHOCYTES ABSOLUTE COUNT 2.32 K/ L 1.18-3.74 (BEAKER) (test code = 414) MONOCYTES ABSOLUTE COUNT (BEAKER) 1.14 K/ L 0.24-0.36 H (test code = 415) EOSINOPHILS ABSOLUTE COUNT 0.20 K/ L 0.04-0.36 (BEAKER) (test code = 416) BASOPHILS ABSOLUTE COUNT (BEAKER) 0.07 K/ L 0.01-0.08 (test code = 417) IMMATURE GRANULOCYTES-RELATIVE 1 % 0-1 PERCENT (BEAKER) (test code = 2801) TSH/FREE T4 IF [id number] 02:33:00 Test Item Value Reference Range Interpretation Comments THYROID STIMULATING HORMONE 1.221 uIU/mL 0.350-4.940 (BEAKER) (test code = 772) Set Up Person ID - BALBINA MVITAMIN B12 AND [id number] 02:33:00 Test Item Value Reference Range Interpretation Comments VITAMIN B12 428 pg/mL 213-816 (BEAKER) (test code = 774) FOLATE (BEAKER) 18.50 ng/mL See_Comment [Automated message] (test code = 362) The system which generated this result transmitted ref erence range: >=7.00. The reference range was not used to interpr et this result as normal/abnormal . Set Up Person ID - BALBINA MLIPID [id number] 00:30:00 Test Item Value Reference Range Interpretation Comments TRIGLYCERIDES (BEAKER) (test code = 124 mg/dL 540) CHOLESTEROL (BEAKER) (test code = 168 mg/dL 631) HDL CHOLESTEROL (BEAKER) (test code 41 mg/dL = 976) LDL CHOLESTEROL CALCULATED (BEAKER) 102 mg/dL (test code = 633) Triglyceride Reference Range: Low Risk <150 Borderline 150-199 High Risk 200- 499 Very High Risk >=500Cholesterol Reference Range: Low Risk <200 Borderline 200-239 High Risk >240HDL Cholesterol Reference Range: Low Risk >=60 High Risk <40LDL Cholesterol Reference Range: Optimal <100 Near Optimal 100-129 Borderline 130-159 High 160-189 Very High >=190 Set Up Person ID - PIAYA [id number] 23:01:00 Test Item Value Reference Range Interpretation Comments PROCALCITONIN (BEAKER) (test code = < ng/mL <0.05 3036) SEPSIS RISK (ng/mL)Low: 0.05-0.50Intermediate: 0.51-2.00High: >=2.01APTT 2020-11-28 22:48:00 Test Item Value Reference Range Interpretation Comments PARTIAL THROMBOPLASTIN TIME 35.0 seconds 22.5-36.0 (BEAKER) (test code = 760) LACTIC ACID, [id number] 22:46:00 Test Item Value Reference Range Interpretation Comments LACTATE BLOOD VENOUS (2) (BEAKER) 0.79 mmol/L 0.50-2.20 (test code = 2872) Set Up Person ID - [id number] 21:16:00 Test Item Value Reference Range Interpretation Comments MAGNESIUM (BEAKER) 1.8 mg/dL 1.6-2.6 Specimen moderately (test code = 627) hemolyzed Set Up Person ID - [id number] 21:16:00 Test Item Value Reference Range Interpretation Comments PHOSPHORUS (BEAKER) 2.6 mg/dL 2.3-4.7 Specimen moderately (test code = 604) hemolyzed Set Up Person ID - CDPCOMPREHENSIVE METABOLIC [id number] 21:16:00 Test Item Value Reference Range Interpretation Comments TOTAL PROTEIN 7.2 gm/dL 6.0-8.3 Specimen moder ately (BEAKER) (test code = hemoly zed 770) ALBUMIN (BEAKER) 3.1 g/dL 3.5-5.0 L Specimen mo derately (test code = 1145) hemolyzed ALKALINE PHOSPHATASE 216 U/L 40-150 H (BEAKER) (test code = 346) BILIRUBIN TOTAL 0.7 mg/dL 0.2-1.2 Specimen mod erately (BEAKER) (test code = hemoly zed 377) SODIUM (BEAKER) (test 129 meq/L 136-145 L code = 381) POTASSIUM (BEAKER) 3.6 meq/L 3.5-5.1 Specimen moderately (test code = 379) hemolyzed CHLORIDE (BEAKER) 98 meq/L 98-107 (test code = 382) CO2 (BEAKER) (test 23 meq/L 22-29 code = 355) BLOOD UREA NITROGEN 11 mg/dL 7-21 (BEAKER) (test code = 354) CREATININE (BEAKER) 0.66 mg/dL 0.57-1.25 Specimen moderately (test code = 358) hemolyzed GLUCOSE RANDOM 105 mg/dL 70-105 (BEAKER) (test code = 652) CALCIUM (BEAKER) 8.1 mg/dL 8.4-10.2 L (test code = 697) AST (SGOT) (BEAKER) 39 U/L 5-34 H Specimen moderately (test code = 353) hemolyzed ALT (SGPT) (BEAKER) 21 U/L 6-55 Specimen moderately (test code = 347) hemolyzed EGFR (BEAKER) (test 88 mL/min/1.73 ESTIMA SAIGE GFR IS code = 1092) sq m NOT ACCURATE CREATININE CLEARANCE IN PREDICTING GLOMERULAR FILTRATION RATE . ESTIMATED GFR I S NOT APPLICABLE FOR DIALYSIS PATIEN TS. Set Up Person ID - CDPCBC W/PLT COUNT & AUTO [id number] 20:57:00 Test Item Value Reference Range Interpretation Comments WHITE BLOOD CELL COUNT (BEAKER) 14.5 K/ L 3.5-10.5 H (test code = 775) RED BLOOD CELL COUNT (BEAKER) 4.33 M/ L 3.93-5.22 (test code = 761) HEMOGLOBIN (BEAKER) (test code = 13.1 GM/DL 11.2-15.7 410) HEMATOCRIT (BEAKER) (test code = 41.1 % 34.1-44.9 411) MEAN CORPUSCULAR VOLUME (BEAKER) 94.9 fL 79.4-94.8 H (test code = 753) MEAN CORPUSCULAR HEMOGLOBIN 30.3 pg 25.6-32.2 (BEAKER) (test code = 751) MEAN CORPUSCULAR HEMOGLOBIN CONC 31.9 GM/DL 32.2-35.5 L (BEAKER) (test code = 752) RED CELL DISTRIBUTION WIDTH 12.2 % 11.7-14.4 (BEAKER) (test code = 412) PLATELET COUNT (BEAKER) (test 252 K/CU MM 150-450 code = 756) MEAN PLATELET VOLUME (BEAKER) 9.3 fL 9.4-12.3 L (test code = 754) NUCLEATED RED BLOOD CELLS 0 /100 WBC 0-0 (BEAKER) (test code = 413) NEUTROPHILS RELATIVE PERCENT 73 % (BEAKER) (test code = 429) LYMPHOCYTES RELATIVE PERCENT 17 % (BEAKER) (test code = 430) MONOCYTES RELATIVE PERCENT 8 % (BEAKER) (test code = 431) EOSINOPHILS RELATIVE PERCENT 1 % (BEAKER) (test code = 432) BASOPHILS RELATIVE PERCENT 1 % (BEAKER) (test code = 437) NEUTROPHILS ABSOLUTE COUNT 10.54 K/ L 1.56-6.13 H (BEAKER) (test code = 670) LYMPHOCYTES ABSOLUTE COUNT 2.52 K/ L 1.18-3.74 (BEAKER) (test code = 414) MONOCYTES ABSOLUTE COUNT (BEAKER) 1.15 K/ L 0.24-0.36 H (test code = 415) EOSINOPHILS ABSOLUTE COUNT 0.18 K/ L 0.04-0.36 (BEAKER) (test code = 416) BASOPHILS ABSOLUTE COUNT (BEAKER) 0.08 K/ L 0.01-0.08 (test code = 417) IMMATURE GRANULOCYTES-RELATIVE 1 % 0-1 PERCENT (LEONARDO) (test code = 2801)
--- NOTE | 2021-11-20 13:45 | ER ---
Nurse's Notes [facility] Name: Haritha Mensah Age: 76 yrs Sex: Female : 1945 Arrival Date: 11/20/2021 Time: 11:37 Bed 13 Private MD: Diagnosis: Hypokalemia;UTI/ Urinary tract infection, site not specified Presentation: 11/20 11:54 Chief complaint: Patient's son or daughter states: had blood work done for surgery and iw was called by Dr. Stuart office to get to the ER for abnormal lab results, pt is due to have surgery for a prolapsed uterus , sister does not know what labs were abnormal. Coronavirus screen: At this time, the client does not indicate any symptoms associated with coronavirus-19. Ebola Screen: Patient negative for fever greater than or equal to 101.5 degrees Fahrenheit, and additional compatible Ebola Virus Disease symptoms Patient denies exposure to infectious person. Patient denies travel to an Ebola-affected area in the 21 days before illness onset. No symptoms or risks identified at this time. Initial Sepsis Screen: Does the patient meet any 2 criteria? No. Patient's initial sepsis screen is negative. Does the patient have a suspected source of infection? No. Patient's initial sepsis screen is negative. Risk Assessment: Do you want to hurt yourself or someone else? Patient reports no desire to harm self or others. Onset of symptoms was November 20, 2021. 11:54 Method Of Arrival: Ambulatory iw 11:54 Acuity: OFE 3 iw Triage Assessment: 14:00 General: Appears in no apparent distress. Behavior is calm, quiet, Smells of urine. jg9 Historical: - Allergies: 11:56 No Known Allergies; iw - Home Meds: 14:44 Chlorthalidone Oral [Active]; risperidone Oral [Active]; Simvastatin Oral [Active]; jg9 Trazodone Oral [Active]; - PMHx: 11:56 Hyperlipidemia; Schizophrenia; iw - Immunization history:: Adult Immunizations unknown. - Social history:: Smoking status: Patient denies any tobacco usage or history of. Screenin:42 Abuse screen: Denies threats or abuse. Denies injuries from another. Nutritional jg9 screening: No deficits noted. Tuberculosis screening: No symptoms or risk factors identified. Fall Risk Mental Status- Overestimates/Forgets Limitations (15 pts.). Assessment: 14:00 Reassessment: No changes from previously documented assessment. Patient and/or family jg9 updated on plan of care and expected duration. Pain level reassessed. Patient is alert, oriented x 3, equal unlabored respirations, skin warm/dry/pink. Pain: Denies pain. 15:00 Reassessment: No changes from previously documented assessment. Patient and/or family jg9 updated on plan of care and expected duration. Pain level reassessed. Patient is alert, oriented x 3, equal unlabored respirations, skin warm/dry/pink. 16:00 Reassessment: No changes from previously documented assessment. Patient and/or family jg9 updated on plan of care and expected duration. Pain level reassessed. Patient is alert, oriented x 3, equal unlabored respirations, skin warm/dry/pink. Vital Signs: 11:54 BP 134 / 66; Pulse 73; Resp 16; Temp 97.0; Pulse Ox 98% on R/A; iw 14:30 BP 118 / 66; Pulse 78; Resp 17 S; Pulse Ox 100% on R/A; Pain 0/10; jg9 15:45 BP 116 / 64; Pulse 88; Resp 14 S; Pulse Ox 100% ; jg9 16:15 BP 106 / 52; Pulse 73; Resp 17 S; Pulse Ox 100% ; jg9 16:45 BP 121 / 70; Pulse 75; Resp 17 S; Pulse Ox 98% on R/A; Pain 0/10; jg9 ED Course: 11:37 Patient arrived in ED. rg4 11:56 Triage completed. iw 12:55 Zeinab Jimenez FNP-C is PHCP. snw 12:55 Vivian Avelar MD is Attending Physician. snw 13:19 Itzel Guardado, YADIRA is Primary Nurse. jg9 14:15 Inserted saline lock: 22 gauge in right forearm, using aseptic technique. jg9 14:43 Arm band placed on right wrist. jg9 14:43 Patient has correct armband on for positive identification. Bed in low position. Call jg9 light in reach. 17:03 No provider procedures requiring assistance completed. jg9 17:04 IV discontinued. jg9 Administered Medications: 14:10 Drug: Potassium Chloride 40 mEq Route: PO; jg9 14:34 Follow up: Response: No adverse reaction jg9 14:10 Drug: LaSIX (furosemide) 20 mg Route: PO; jg9 14:34 Follow up: Response: No adverse reaction jg9 14:30 Drug: Rocephin (cefTRIAXone) 1 grams Route: IV; Rate: calculated rate; Site: right jg9 forearm; 15:00 Follow up: IV Status: Completed infusion; IV Intake: 50ml jg9 14:34 Drug: NS 0.9% with KCl 20 mEq/L 1000 ml Route: IV; Rate: 1000 ml/hr; Site: right jg9 forearm; 16:31 Follow up: IV Status: Completed infusion; IV Intake: 1000ml jg9 Medication: 17:04 VIS not applicable for this client. jg9 Intake: 15:00 IV: 50ml; Total: 50ml. jg9 16:31 IV: 1000ml; Total: 1050ml. jg9 Outcome: 13:44 Discharge ordered by . yoav 17:03 Discharged to home via wheelchair, with family. jg9 17:03 Condition: stable 17:03 Discharge instructions given to patient, Instructed on discharge instructions, follow up and referral plans. Demonstrated understanding of instructions, follow-up care, Prescriptions given X 2. 17:04 Patient left the ED. jg9 Signatures: Zeinab Jimenez, INVESTIGATIVE ASSISTANT-C INVESTIGATIVE ASSISTANT-Csnw Kenna Segura, RN Olga Carrillo rg4 Itzel Guardado RN RN jg9 Corrections: (The following items were deleted from the chart) 15:32 15:04 IV Status: Completed infusion; IV Intake: 50ml jg9 jg9
--- NOTE | 2021-11-20 13:45 | EDPHYS ---
Physician Documentation [facility] Name: Haritha Mensah Age: 76 yrs Sex: Female : 1945 Arrival Date: 11/20/2021 Time: 11:37 Bed 13 Private MD: ED Physician Vivian Avelar HPI: 11/20 13:49 This 76 yrs old Female presents to ER via Ambulatory with complaints of Abnormal Lab snw Results. 13:49 Pt getting pre-op labs for uterine prolapse repair. Abnormal results, pt directed per snw Dr. Stuart to ED.. Onset: The symptoms/episode began/occurred gradually. Severity of symptoms: At their worst the symptoms were very mild. It is unknown whether or not the patient has had similar symptoms in the past. The patient has been recently seen by a physician: the patient's primary care provider, Dr. Stuart. Historical: - Allergies: 11:56 No Known Allergies; iw - Home Meds: 14:44 Chlorthalidone Oral [Active]; risperidone Oral [Active]; Simvastatin Oral [Active]; jg9 Trazodone Oral [Active]; - PMHx: 11:56 Hyperlipidemia; Schizophrenia; iw - Immunization history:: Adult Immunizations unknown. - Social history:: Smoking status: Patient denies any tobacco usage or history of. ROS: 13:48 Constitutional: Negative for fever, chills, and weight loss, Eyes: Negative for injury, snw pain, redness, and discharge, ENT: Negative for injury, pain, and discharge, Neck: Negative for injury, pain, and swelling, Cardiovascular: Negative for chest pain, palpitations, and edema, Respiratory: Negative for shortness of breath, cough, wheezing, and pleuritic chest pain, Abdomen/GI: Negative for abdominal pain, nausea, vomiting, diarrhea, and constipation, Back: Negative for injury and pain, : Negative for injury, bleeding, discharge, and swelling, MS/Extremity: Negative for injury and deformity, Skin: Negative for injury, rash, and discoloration, Neuro: Negative for headache, weakness, numbness, tingling, and seizure, Psych: Negative for depression, anxiety, suicide ideation, homicidal ideation, and hallucinations. Exam: 13:36 Head/Face: Normocephalic, atraumatic. Eyes: Pupils equal round and reactive to light, snw extra-ocular motions intact. Lids and lashes normal. Conjunctiva and sclera are non-icteric and not injected. Cornea within normal limits. Periorbital areas with no swelling, redness, or edema. ENT: Nares patent. No nasal discharge, no septal abnormalities noted. Tympanic membranes are normal and external auditory canals are clear. Oropharynx with no redness, swelling, or masses, exudates, or evidence of obstruction, uvula midline. Mucous membranes moist. Neck: Trachea midline, no thyromegaly or masses palpated, and no cervical lymphadenopathy. Supple, full range of motion without nuchal rigidity, or vertebral point tenderness. No Meningismus. Chest/axilla: Normal chest wall appearance and motion. Nontender with no deformity. No lesions are appreciated. Cardiovascular: Regular rate and rhythm with a normal S1 and S2. No gallops, murmurs, or rubs. Normal PMI, no JVD. No pulse deficits. Pedal Edema Respiratory: Lungs have equal breath sounds bilaterally, clear to auscultation and percussion. No rales, rhonchi or wheezes noted. No increased work of breathing, no retractions or nasal flaring. MS/ Extremity: Pulses equal, no cyanosis. Neurovascular intact. Full, normal range of motion. Neuro: Awake and alert, GCS 15, oriented to person, place, time, and situation. Cranial nerves II-XII grossly intact. Motor strength 5/5 in all extremities. Sensory grossly intact. Cerebellar exam normal. Normal gait. 13:36 Cardiovascular: Regular rate and rhythm with a normal S1 and S2. No gallops, murmurs, or rubs. Normal PMI, no JVD. No pulse deficits. Back: No spinal tenderness. No costovertebral tenderness. Full range of motion. Skin: Warm, dry with normal turgor. Normal color with no rashes, no lesions, and no evidence of cellulitis. 13:36 Constitutional: The patient appears alert, awake, non-communicative. Daughter at bedside, Historian, states pt is a paranoid schizophrenic. Pt was to have pre-op labs for repair of uterine prolapse. Dr. Stuart sent pt to ED for abnormalities. Labs include potassium of 2.9mmol/L. 13:36 Abdomen/GI: Inspection: obese Bowel sounds: normal, Palpation: abdomen is soft and non-tender. 13:36 Psych: Behavior/mood is cooperative, Affect is calm, hx of paranoid schizophrenia. Vital Signs: 11:54 BP 134 / 66; Pulse 73; Resp 16; Temp 97.0; Pulse Ox 98% on R/A; iw 14:30 BP 118 / 66; Pulse 78; Resp 17 S; Pulse Ox 100% on R/A; Pain 0/10; jg9 15:45 BP 116 / 64; Pulse 88; Resp 14 S; Pulse Ox 100% ; jg9 16:15 BP 106 / 52; Pulse 73; Resp 17 S; Pulse Ox 100% ; jg9 16:45 BP 121 / 70; Pulse 75; Resp 17 S; Pulse Ox 98% on R/A; Pain 0/10; jg9 MDM: 13:32 Patient medically screened. snw 13:48 Data reviewed: vital signs, nurses notes. Data interpreted: Pulse oximetry: on room air snw is 98 %. Interpretation: normal. Counseling: I had a detailed discussion with the patient and/or guardian regarding: the historical points, exam findings, and any diagnostic results supporting the discharge/admit diagnosis, the presence of at least one elevated blood pressure reading (>120/80) during this emergency department visit, lab results, radiology results, the need for outpatient follow up, to return to the emergency department if symptoms worsen or persist or if there are any questions or concerns that arise at home. Special discussion: Based on the history and exam findings, there is no indication for further emergent testing or inpatient evaluation. I discussed with the patient/guardian the need to see the primary care provider for further evaluation of the symptoms. 11/20 13:43 Order name: Urine Microscopic Only; Complete Time: 14:36 snw 11/20 13:43 Order name: Urine Culture [facility] 11/20 14:00 Order name: Urine Dipstick-Ancillary; Complete Time: 14:02 EDMS Administered Medications: 14:10 Drug: Potassium Chloride 40 mEq Route: PO; jg9 14:34 Follow up: Response: No adverse reaction j9 14:10 Drug: LaSIX (furosemide) 20 mg Route: PO; jg9 14:34 Follow up: Response: No adverse reaction j9 14:30 Drug: Rocephin (cefTRIAXone) 1 grams Route: IV; Rate: calculated rate; Site: right jg9 forearm; 15:00 Follow up: IV Status: Completed infusion; IV Intake: 50ml jg9 14:34 Drug: NS 0.9% with KCl 20 mEq/L 1000 ml Route: IV; Rate: 1000 ml/hr; Site: right jg9 forearm; 16:31 Follow up: IV Status: Completed infusion; IV Intake: 1000ml jg9 Disposition Summary: 11/20/21 13:44 Discharge Ordered Location: Home snw Condition: Stable snw Diagnosis - Hypokalemia snw - UTI/ Urinary tract infection, site not specified snw Followup: snw - With: Private Physician - When: 2 - 3 days - Reason: Recheck today's complaints, Continuance of care, Re-evaluation by your physician Discharge Instructions: - Discharge Summary Sheet snw - Potassium Content of Foods snw - Hypokalemia snw - Urinary Tract Infection, Adult snw Forms: - Medication Reconciliation Form snw - Thank You Letter snw - Antibiotic Education snw - Prescription Opioid Use snw Prescriptions: - Potassium Chloride 10 mEq Oral Tablet - take 1 tablet by ORAL route every 12 hours; 30 tablet; Refills: 0, Product snw Selection Permitted - Augmentin 875-125 mg Oral Tablet - take 1 tablet by ORAL route every 12 hours for 10 days; 20 tablet; Refills: 0, snw Product Selection Permitted Signatures: Dispatcher [employer] Zeinab Jennings FNP-C ASSISTANT PROFESSOR OF THEATER-Csnw Kenna Segura, Itzel Lozano RN, RN RN jg9
[2021-11-20 13:59] LABS: Urine Blood Trace-intact (Negative); Urine Glucose Negative (Negative); Urine Protein Negative (Negative); Urine pH 6.5 (5.0-7.0)
[2021-11-20] MEDS ORDERED: NS KCL 20MEQ 1,000 ML IV ONE (14:11)
[2021-11-20] MEDS ORDERED: FUROSEMIDE 20 MG TABLET ONE (14:11)
[2021-11-20] MEDS ORDERED: POTASSIUM CL SA 10 MEQ TAB PO ONE (14:11)
[2021-11-20] MEDS ORDERED: CEFTRIAXONE 1000 MG/VIAL ONE (14:20)
[2021-11-20] MEDS ORDERED: NA CHLORIDE 0.9% 50 ML ONE (14:21)
[2021-11-20 14:34] LABS: Urine Bacteria >50 /HPF (<20); Urine RBC <5 /HPF (None Seen)
[2021-11-20 19:18] VITALS: TEMP 97
[2021-11-20 19:28] VITALS: BP 121/70; O2SAT 98
== END 2021-11-20 17:04 | disposition home or self-care (01) ==
LOC: ER 11:35
DX: E87.6 Hypokalemia (principal); N39.0 Urinary tract infection, site not specified; E78.5 Hyperlipidemia, unspecified; F20.9 Schizophrenia, unspecified
CPT/HCPCS: 87088; 87086; J3480; 81003; 81015; 96361; 96365; 99283

== ENCOUNTER 2021-11-26 09:38 | Day surgery (SDC) | payer MEDICARE, OTHER ==
[2021-11-20 10:25] LABS: Absolute Lymphocytes (CBC) 2.2 K/uL (0.7-4.9); Hematocrit 43.3 % (36.0-45.0); Lymphocytes % 49.3 % (15.3-44.8); MCV 87.8 fL (80-100); MPV 8.1 fL (7.6-11.3); RBC Red Blood Cell Count 4.94 M/uL (3.86-4.86)
[2021-11-20 10:29] LABS: Protime INR 1.02
[2021-11-20 11:16] LABS: Potassium 2.9 mmol/L (3.5-5.1)
[2021-11-25 10:10] LABS: SARS-CoV-2 Antigen Rapid Res Positive (Negative)
[2021-11-26] MEDS ORDERED: Ringers Lactate 1,000 ML IV ONE (09:55)
[2021-11-26] MEDS ORDERED: HEPARIN 5000 UNIT/ML 1 ML VIAL ONE (09:55)
[2021-11-26] MEDS: CEFAZOLIN 2 GM IN 0.9% NACL 2 GM/100 ML BAG ONE ×2 (11:08→13:13)
[2021-11-26 12:36] LABS: Potassium 3.9 mmol/L (3.5-5.1)
[2021-11-26] MEDS ORDERED: FENTANYL CITR 100 MCG/2 ML ONE (12:38)
[2021-11-26] MEDS ORDERED: MIDAZOLAM HCL 2 MG/2 ML INJ ONE (12:38)
[2021-11-26] MEDS ORDERED: propofoL 200 MG/20 ML VIAL IV ONE (12:38)
[2021-11-26] MEDS ORDERED: LIDOCAINE 1% MPF 5 ML VIAL ONE (12:38)
[2021-11-26] MEDS ORDERED: NA CHLORIDE 0.9% 100 ML ONE (13:02)
[2021-11-26] MEDS ORDERED: CEFAZOLIN SODIUM 1 GM/VIAL ONE ×2 (13:02→15:47)
[2021-11-26] MEDS ORDERED: VASOPRESSIN 20 UNIT/ML VIAL ONE (13:02)
[2021-11-26] MEDS ORDERED: ROCURONIUM 50 MG/5 ML VIAL IV ONE (13:24)
[2021-11-26] MEDS ORDERED: dexAMETHasone 4 MG/ML VIAL ONE (13:34)
[2021-11-26] MEDS ORDERED: ONDANSETRON 4 MG/2 ML VIAL ONE (13:34)
[2021-11-26] MEDS ORDERED: dexAMETHasone 10 MG/ML VIAL ONE (13:35)
[2021-11-26] MEDS ORDERED: MORPHINE 2 MG/ML SYR IV PRN (16:25)
[2021-11-26] MEDS ORDERED: PROMETHAZINE INJ 25 MG/ML AMP IV PRN (16:25)
[2021-11-26] MEDS ORDERED: ACETAMINOPHEN 500 MG TAB PO PRN (16:25)
--- NOTE | 2021-11-26 16:35 | P.BOP ---
Preoperative diagnosis: stage 3 uterovaginal prlapse MORENO Postoperative diagnosis: same perineocele Primary procedure: lefort's partial colpocleisis, perineocele repair, post wall repair, TO MUS Secondary procedure: cysto Bid Analyst: Cely Araiza Estimated blood loss: 100 Specimen: NONE Findings: 0/+2/+4/5/THIN/8/0/0/+1, PERINEOCELE Anesthesia: General Complications: None Drain(s): Urinary catheter Implants: cate sling Transferred to: Recovery Room Condition: Good
[2021-11-26] MEDS: Ringers Lactate 1,000 ML IV SCH (17:00)
[2021-11-26] MEDS: HEPARIN 5000 UNIT/ML 1 ML VIAL SQ SCH (17:31)
[2021-11-26] MEDS ORDERED: HOME MED 1 EA UNK (Simvastatin [Simvastatin] 10 MG Tablet) PO SCH (21:00)
[2021-11-26] MEDS: CHLORTHALIDONE 25 MG TAB PO SCH (21:00)
[2021-11-26] MEDS: ATORVASTATIN 10 MG TAB PO SCH (22:17)
[2021-11-26] MEDS: DONEPEZIL HCL 5 MG TAB PO SCH (22:17)
[2021-11-26] MEDS: RISPERIDONE 1 MG TABLET PO SCH (22:17)
[2021-11-26] MEDS: TRAZODONE 50 MG TABLET PO SCH (22:17)
[2021-11-26] MEDS: MEMANTINE HCL 10 MG TABLET PO SCH (22:18)
[2021-11-27] MEDS: Ringers Lactate 1,000 ML IV SCH ×3 (01:26→17:00)
[2021-11-27] MEDS: HEPARIN 5000 UNIT/ML 1 ML VIAL SQ SCH ×3 (01:26→17:16)
[2021-11-27 03:07] VITALS: O2SAT 98; BMI 29.2
[2021-11-27 06:17] LABS: Absolute Lymphocytes (CBC) 1.4 K/uL (0.7-4.9); Hematocrit 35.9 % (36.0-45.0); Lymphocytes % 8.3 % (15.3-44.8); MCV 88.2 fL (80-100); MPV 7.9 fL (7.6-11.3); RBC Red Blood Cell Count 4.07 M/uL (3.86-4.86)
[2021-11-27] MEDS ORDERED: PNEUMOCOCCAL VACCINE 0.5 ML IMVAC ONE ×2 (08:00→14:00)
[2021-11-27] MEDS ORDERED: CYANOCOBALAMIN 1000 MCG/ML PO SCH (09:00)
[2021-11-27] MEDS: CYANOCOBALAMIN 1,000 MCG TAB PO SCH (09:58)
--- NOTE | 2021-11-27 12:23 | RAD REPORT ---
EXAM DESCRIPTION: RAD - Chest Single View - 11/27/2021 12:08 pm CLINICAL HISTORY: COVID + Chest pain. COMPARISON: Chest Single View dated 11/28/2020; Chest Pa And Lat (2 Views) dated 11/14/2020; Chest Sing le View dated 08/28/2020; Chest Single View dated 04/21/2019 FINDINGS: Portable technique limits examination quality. Interstitial markings are slightly prominent which may indicate underlying viral infection. No focal consolidation to indicate pneumonia. Small pleural effusion on the left is possible. The heart is nor mal in size. No displaced fractures.
[2021-11-27 12:24] LABS: Specific Gravity 1.015 (1.005-1.030); Urine Bilirubin Negative (Negative); Urine Blood Trace-lysed (Negative); Urine Clarity Clear (Clear); Urine Color Yellow (Yellow); Urine Glucose Negative (Negative); Urine Protein Negative (Negative); Urine Urobilinogen 0.2 mg/dL (0.2-1.0)
[2021-11-27 12:33] LABS: Urine Bacteria <20 /HPF (<20); Urine RBC <5 /HPF (None Seen)
--- NOTE | 2021-11-27 12:33 | P.CNS ---
Date of Consult: 11/27/21 Reason for Consult: Medical management Requesting Physician: Briseyda Guzman Chief Complaint: stage 3 uterovaginal prolapse. History of Present Illness: Patient is a 76-year-old female with a past medical history significant for dem entia, hyperlipidemia, hypertension schizophrenia' who presents with complaint of stage 3 uterovaginal prolapse. Patient has been following up with her [employer] and had a scheduled procedure yesterday. Patient successfully had a lefort's partial colpocleisis, perineocele repair, post wall repair, TO MUS. Per nurse postop bleeding is minimal. Patient is alert and oriented x1, poor historian and hard of hearing. Patient noted to be coughing. Patient unable to provide duration of coughing. Family reported that patient tested positive for COVID-19 patient 2 days ago. Patient denies any other signs and symptoms. Symptoms are aggravated or relieved by nothing. Patient is currently resting in bed with family at bedside. Home medications list reviewed: Yes - Past Medical/Surgical History Diabetic: No -: Dementia -: hypertensive disorder -: hyperlipidemia -: schizophrenia -: encephalopathy -: dementia -: C section Psychosocial/ Personal History: lives with daughter - Social History Smoking Status: Never smoker Alcohol use: No CD- Drugs: No Caffeine use: No Place of Residence: Home <Vee Pierre - Last Filed: 11/27/21 13:14> <Jun Burden - Last Filed: 11/27/21 18:39> Allergies No Known Allergies Allergy (Verified 11/26/21 10:51) Home Medications: RX: Risperidone [Risperdal] 1 mg PO BEDTIME 04/22/19 RX: Trazodone [Desyrel*] 50 mg PO BEDTIME 04/22/19 RX: Chlorthalidone [Hygroton 25mg Tab*] 1 tab PO BEDTIME 08/29/20 RX: Simvastatin 10 mg PO BEDTIME 08/29/20 Apixaban [Eliquis] 2.5 mg PO BID 11/20/21 Cyanocobalamin (Vitamin B-12) [Vitamin B-12] 1,000 mcg PO DAILY 11/20/21 Donepezil [Aricept] 5 mg PO BEDTIME 11/20/21 Memantine HCl [Namenda] 10 mg PO BEDTIME 11/20/21 Review of Systems General: Unremarkable Eyes: Unremarkable ENT: Unremarkable Respiratory: Cough Cardiovascular: Unremarkable Gastrointestinal: Unremarkable Genitourinary: Unremarkable Musculoskeletal: Unremarkable Integumentary: Unremarkable Neurological: Unremarkable <Vee Pierre - Last Filed: 11/27/21 13:14> Physical Examination Temp Pulse Resp BP Pulse Ox 97.6 F 83 18 119/56 L 94 11/27/21 08:00 11/27/21 08:00 11/27/21 08:00 11/27/21 08:00 11/27/21 08:00 General: Alert, In no apparent distress, Oriented x1, Demented HEENT: Atraumatic, Normocephalic, PERRLA Neck: 2+ carotid pulse no bruit, JVD not distended Respiratory: Clear to auscultation bilaterally, Normal air movement Cardiovascular: No edema, Normal pulses Capillary refill: <2 Seconds Gastrointestinal: Normal bowel sounds, Soft and benign Musculoskeletal: No clubbing, No swelling, No erythema Integumentary: No rashes, No breakdown, No significant lesion, No tenderness/swelling Neurological: Normal gait, Normal speech, Normal tone Lymphatics: No axilla or inguinal lymphadenopathy Laboratory Data (last 24 hrs) 11/27/21 05:50: WBC 17.20 H D, Hgb 12.1 D, Hct 35.9 L D, Plt Count 297 D 11/26/21 12:07: Sodium 138, Potassium 3.9, BUN 18, Creatinine 0.77, Glucose 96 <Vee Pierre - Last Filed: 11/27/21 13:14> Temp Pulse Resp BP Pulse Ox 98.4 F 77 18 118/56 L 95 11/27/21 16:00 11/27/21 16:00 11/27/21 16:00 11/27/21 16:00 11/27/21 16:00 Laboratory Data (last 24 hrs) 11/27/21 05:50: WBC 17.20 H D, Hgb 12.1 D, Hct 35.9 L D, Plt Count 297 D <Jun Burden Last Filed: 11/27/21 18:39> Conclusions/Impression: --Stage 3 uterovaginal prolapse. S/P lefort's partial colpocleisis, perineocele repair, post wall repair, TO MUS. Patient currently denies any pain. H&H stable. [employer] board. Further management per [employer]. --Leukocytosis. UA negative. Chest x-ray does not indicate any pneumonia. Blood cultures pending. Patient placed on prophylactic antibiotics. -- Lactic acidosis. Blood cultures pending. Will trend lactic acid levels. Continue antibiotics and IV hydration. --CKD 2. Stable. We will continue to monitor renal functions -- Acute pain. We will manage pain with current pain medication regimen. --Hypertension stable. Continue home medication. --COVID-19 infection. Patient only presenting symptom is coughing. O2 sat within normal limits on room air. Antitussives on board. Continue airborne and contact precautions. --HLD. Continue statin. --Dementia. Patient at baseline mental status. Continue home medications. --Schizophrenia. Continue home medications. --DVT prophylaxis with heparin subQ. Physician Review: Patient Assessed, Agree with Above Assessment and Plan Critical Care: No <Vee Pierre - Last Filed: 11/27/21 13:14> Physician Review: Patient Assessed, Agree with Above Assessment and Plan Physician Review Additional Text: Internal Medicine was consulted for management of severe viral sepsis secondary to COVID-19 pneumonia. Procalcitonin < 0.05, suggesting against bacterial pneumonia. Recommend monitoring overnight and re-evaluating in the morning. Pu lmonary consultation has been requested and Dr. Brooke was notified. Recommendations discussed with her daughter (Ms. Ml Mensah) and with attending physician (Dr. Guzman). Internal Medicine will continue to follow along. Jun Burden M.D. <Jun Burden - Last Filed: 11/27/21 18:39>
[2021-11-27] MEDS: PIPER TAZO 3.375 GM in NA CHLORIDE 0.9% 100 ML IV SCH (17:16)
[2021-11-27] MEDS ORDERED: guaiFENesin 100 MG/5 ML UCUP PO PRN (17:33)
[2021-11-27] MEDS: CHLORTHALIDONE 25 MG TAB PO SCH (21:00)
[2021-11-27] MEDS: TRAZODONE 50 MG TABLET PO SCH (22:29)
[2021-11-27] MEDS: DONEPEZIL HCL 5 MG TAB PO SCH (22:29)
[2021-11-27] MEDS: MEMANTINE HCL 10 MG TABLET PO SCH (22:30)
[2021-11-27] MEDS: RISPERIDONE 1 MG TABLET PO SCH (22:30)
[2021-11-27] MEDS: ATORVASTATIN 10 MG TAB PO SCH (22:30)
[2021-11-28] MEDS: HEPARIN 5000 UNIT/ML 1 ML VIAL SQ SCH ×2 (00:20→08:40)
[2021-11-28] MEDS: PIPER TAZO 3.375 GM in NA CHLORIDE 0.9% 100 ML IV SCH (00:22)
[2021-11-28 05:14] VITALS: BP 122/88; TEMP 97.5
[2021-11-28 05:45] LABS: Absolute Lymphocytes (CBC) 2.8 K/uL (0.7-4.9); Hematocrit 37.4 % (36.0-45.0); Lymphocytes % 25.5 % (15.3-44.8); MCV 89.1 fL (80-100); MPV 7.9 fL (7.6-11.3)
--- NOTE | 2021-11-28 05:53 | OP ---
Date of Procedure: 11/26/2021 Surgeon: Briseyda Guzman MD Philosophy Professor: Cely Barroso. Preoperative Diagnosis: Stage III uterovaginal prolapse, stress urinary incontinence. Postoperative Diagnosis: Stage III uterovaginal prolapse, stress urinary incontinence, and perineoce le. Procedures Performed: 1.LeFort partial colpocleisis. 2.Perineocele repair, posterior wall repair, mid urethral transobturator sling. 3.Cystoscopy. Anesthesia: General endotracheal. Estimated Blood Loss: 100. Specimens: None. Complications: No complications. Drains: Leon catheter. Implants: KEY sling. Findings: Pop-Q 0+, 2+, 4, 5, 10, 800, +1, and perineocele. Cystoscopy with normal jets of urine fr om both ureteric orifices. No evidence of any trauma to the bladder. Condition: Stable. No desaturations during the case. The patient was COVID positive, asymptomatic by history from the [facility]. Indications For Procedure: The patient is a 76-year-old female, who presented with prolapse, evaluat ed in the office fully and diagnosed and discussed all different options including pessary and surgic al options and observation. The patient's daughter takes care of her at home. Patient has significa nt dementia, which is pleasant and communicating. She was consented for a colpocleisis as this is a difficult tissue for taking care of her as it was a ffecting her bladder emptying. Also difficult hassle if the pessary was inserted, so chose to have s urgery. On preoperative routine testing, her SARS-CoV-2 test was positive on Thursday. The patient's daughter was contacted and asked about whether she is symptomatic and we were informed that she was completely asymptomatic. No fevers or any other breathing issues. Has been ambulating at home without any pro blems. Right before the surgery, she was again re-consented. Same questions were asked again and the daught er assured that her mom has had no changes in the status. The patient did have a small cough that wa s able to be verbal and had no mental status changes from her baseline. So, on the basis that she jordan s mostly been asymptomatic other than a positive COVID test. After review with the family and consen nae for the procedure, she was taken back to OR, placed in supine fashion on the operating table. G eneral anesthesia was given. She was placed in dorsal lithotomy position using Ralph stirrups. Vulv a, vagina, and perineum were prepped and draped in a sterile fashion. 2 g of Ancef were given. SCDs were placed. Heparin 5000 subcu was given to the patient as she has been on an anticoagulant prior to her surgery. She had cardiac clearance and medical clearance. Pop-Q was as above, so proceeded with a colpocleisis in the anterior posterior compartment after dryi ng up the trapezoid anteriorly and posteriorly, that had to be de-epithelialized in order for me to p erform the colpocleisis. Dilute vasopressin was injected in the area and the epithelium and subepith elium were from the underlying connective tissue and keeping the epithelial layer very thin . Anterior wall was stripped. Similar identical procedure was performed in the posterior wall, leaving 2 cm from the hymenal ring o n the posterior wall with epithelium. Once all this was denuded, there was a nice channel that was c reated and this was closed with the help of 0 Vicryl suture in a continuous running fashion, making s ure that a 10-Upper Sorbian Leon was placed to maintain the patency of this channel that would lead from th e cervical canal and allow drainage on both sides. All the 2 sides in the center were closed and can alized the catheter that was used. The Leon was removed. Then, anterior and posterior vaginal santiago were sutured together with the help of interrupted 2-0 Larry ryl sutures in 3 layers. Once this was done, the entire canal was reduced anteriorly. The suburethr al area on the right and proximal to the UVJ was plicated with Nena plication as this seemed to stil l have some prolapse from [id number] with 2-0 PDS sutures in an interrupted fashion. Then, the epithelial closure was conducted. It was done with the help of 2-0 Vicryl sutures, a cente r of [id number], and then running sutures on either sides. Once this was closed, this was well reduced. Then, attention was directed to the mid urethral sling. Mid urethral area picked up with Allis clamps, injected with dilute vasopressin on both sides, staying under the fascial layer at a 45 -degree angle to the horizontal and vertical planes, obturators space was entered, hugging the inferi or pubic ramus. Once the membrane was perforated, the track was opened up. Identical procedure was performed on the opposite side. Once the tracts were created, the KEY sling was opened up, loaded on to the delgado, and the wing guide was placed and the sling was passed. The exit point was above the lev el of the clitoris lateral to the groin fold at least 2 cm, but avoiding the longus tendon. Similar pass was taken to the opposite side. The KEY sling was held with 2 Nena's on each side. Tensioning was performed with the help of Allis clamp in the center, picking up a loop of the sling. Once this was nicely laid against the urethra and was well positioned without too much tension just optimally, then, the sling ends were cut, flushed with the skin without disturbing its tensioning. The patient has significant amount of feces that was excoriated during this time, made sure that this was carefu lly covered without letting the sling come past down here. The sling incision was closed with the he lp of a running continuous 3-0 Monocryl suture. Then, re-prepping was done in the bottom still with the field intact and re-covering this area and th en attention was directed to the posterior repair and perineocele repair. A triangular incision was placed on the perineum and then a small vertical incision in the posterior wall as there was only 2 c m left. Both the lateral deep transverse perineum and the scar were all exposed to the levators. Th yvonne were plicated with interrupted 2-0 Vicryl sutures in [id number] fashion at least 2 layers of 4 each were done from top to bottom and this brought the perineal body together very nicely. Then, closure was performed with the help of a 3-0 Vicryl in a continuous running fashion without any furth er trimming, but this reconstructed the perineal body well and there was excellent lift and decrease in the genital hiatus to only 3.5 cm. The sling incisions on the skin were closed with the help of Melony wiseman. Leon was removed. Cystoscopy was performed with 30-degree lens, normal saline. There we re good jets of urine from both ureteric orifices. No evidence of any trauma to the bladder. Latera l santiago were visualized and no evidence of any foreign body. The bladder was re-catheterized and att ached to a Leon bag for drainage. The patient was cleaned up carefully. Rectal exam was performed and there was no evidence of any sutures here. Instrument, needle, and sponge counts were correct. The patient was recovered from anesthesia in stable condition and taken to the PACU. She had no desa turations. She was completely stable during the entire case. She was admitted overnight for observation as usual for the patient's age and the procedure. This morning, she was able to have a voiding trial and had only a PVR of less than 80, had voided at least 200. However, the white count was 17,000 with an 86% neutrophil count. So, given the history of the COVID test being positive, hospitalist consult was called and I requested evaluation of her lizette ngs and her status before she is discharged. Over the course of the day, her chest x-ray showed pneumonia and a discussion with Dr. Jun Burden, who is our hospitalist, was done. She had a lactate that was elevated, but during the day has gradua lly come down to from highest level of 3.3 to 1.5. The patient is still completely asymptomatic, and so plan was to continue current care and observe her until tomorrow morning, that is what I thought was most conservative and safe given the fact that the patient does not complain and given her mental status, it would be better to be observed here. Called the daughter and was able to outline her workup for the day and the conclusion is that she has COVID pneumonia either pre-existing, could be worse due to the endotracheal intubation or postoperat lashonda. Recommended that she should stay overnight until tomorrow and be observed so that this decrease s the risk of readmission or her being sick especially given the intervention that she underwent. Daughter seemed to understand. However, she was very upset that different forms of communication hav e come through to her. This was clarified again and I clearly communicated all the workup very trans parently, also discussed that we discussed about all the preoperative questions that we had went thro [facility] and that given the answers that they had, we had proceeded with the procedure. She understood th is. However, if she did not think that we would be discharging her tomorrow that she is really wanti ng to take her mother home, AMA. The hospitalist is planning to re-evaluate her in the morning and w e will decide on the course. If she is asymptomatic, then she will be discharged home and she will r eturn to her 1-week postop appointment with us and the primary care, Dr. Stuart' office will be notifi ed also about all the proceedings and likely will need their help in managing the patient and monitor ing her recovery from the pneumonia. ELSY/EMERALD Voice ID: [id number] Report ID: [id number]
[2021-11-28 06:06] LABS: Potassium 3.7 mmol/L (3.5-5.1)
--- NOTE | 2021-11-28 08:10 | P.PN ---
Subjective Date of Service: 11/28/21 Chief Complaint: stage 3 uterovaginal prolapse. Subjective: No new changes No acute events overnight. Her daughter (Ms. Ml Mensah) was at bedside. No concerns this morning. They are both eager for discharge. Review of Systems is unable to be obtained (dementia) Physical Examination - Vital Signs Temperature: 97.5 F Blood Pressure: 122/88 Pulse: 95 Respirations: 17 Pulse Ox (%): 93 - Physical Exam General: Alert, In no apparent distress, Cooperative, Demented HEENT: Atraumatic, PERRLA, Mucous membr. moist/pink, EOMI, Sclerae nonicteric Neck: Supple, JVD not distended Respiratory: Clear to auscultation bilaterally, Normal air movement Cardiovascular: No edema, Regular rate/rhythm, Normal S1 S2, No gallops, No rub s, No murmurs Gastrointestinal: Normal bowel sounds, Soft and benign, Non-distended, No tenderness, No rebound, No guarding Musculoskeletal: No clubbing Integumentary: No rashes Neurological: Normal speech, Cranial nerves 3-12 intact, Normal affect - Studies Laboratory Data (last 24 hrs) 11/28/21 05:25: Sodium 139, Potassium 3.7, BUN 11, Creatinine 0.74, Glucose 91 11/28/21 05:25: WBC 11.00 H D, Hgb 12.5, Hct 37.4, Plt Count 290 Microbiology Data (last 24 hrs): 11/27/21 09:32 Blood - Blood Anaerobic Blood Culture - Final Assessment And Plan - Plan DIAGNOSES: # Severe Viral Sepsis secondary to COVID-19 Pneumonia # Stage III Ureterovaginal Prolapse s/p Lefort's Partial Colpocleisis, Perineocele Repair, Post Wall Repair, TO MUS # Post-Operative Pain # Dementia # Hypertension # Hyperlipidemia # Schizophrenia RECOMMENDATIONS: She appears clinically well this morning. She ambulated around nursing station without requiring oxygen. 1. From my standpoint, she is medically stable for discharge 2. At discharge, please have her follow-up with her PCP in 3-5 days 3. COVID-19 recs per Pulmonary. Internal Medicine will continue to follow along while she is hospitalized. Jun Burden M.D. Discharge Plan: Home
[2021-11-28] MEDS ORDERED: POTASSIUM 25 MEQ EFFERV TAB PO ONE (08:37)
--- NOTE | 2021-11-28 08:37 | P.CNS ---
Date of Consult: 11/28/21 Reason for Consult: Tested positive for coronavirus possible pneumonia Chief Complaint: Positive for coronavirus History of Present Illness: Patient is 76 years of age she underwent some pelvic surgery for uterovaginal prolapse tested positive for coronavirus daughter present at the bedside patient denies any complaints white count was elevated minimal interstitial changes on chest x-ray no history of fever chills Allergies No Known Allergies Allergy (Verified 11/26/21 10:51) Home Medications: Risperidone [Risperdal] 1 mg PO BEDTIME 04/22/19 Trazodone [Desyrel*] 50 mg PO BEDTIME 04/22/19 Simvastatin 10 mg PO BEDTIME 08/29/20 Apixaban [Eliquis] 2.5 mg PO BID 11/20/21 Cyanocobalamin (Vitamin B-12) [Vitamin B-12] 1,000 mcg PO DAILY 11/20/21 Donepezil [Aricept] 5 mg PO BEDTIME 11/20/21 Memantine HCl [Namenda] 10 mg PO BEDTIME 11/20/21 - Past Medical/Surgical History Diabetic: No -: Dementia -: hypertensive disorder -: hyperlipidemia -: schizophrenia -: encephalopathy -: dementia -: C section Psychosocial/ Personal History: lives with daughter - Social History Smoking Status: Never smoker Alcohol use: No CD- Drugs: No Caffeine use: No Place of Residence: Home Review of Systems is unable to be obtained Physical Examination Temp Pulse Resp BP Pulse Ox 97.5 F 95 H 17 122/88 93 11/28/21 08:10 11/28/21 08:10 11/28/21 08:10 11/28/21 08:10 11/28/21 08:10 General: Alert Respiratory: Clear to auscultation bilaterally Cardiovascular: No edema, Regular rate/rhythm, Normal S1 S2 Laboratory Data (last 24 hrs) 11/28/21 05:25: Sodium 139, Potassium 3.7, BUN 11, Creatinine 0.74, Glucose 91 11/28/21 05:25: WBC 11.00 H D, Hgb 12.5, Hct 37.4, Plt Count 290 - Problems (1) SARS-CoV-2 positive Current Visit: Yes Status: Acute Plan: Patient is 76 years of age s/p uterovaginal surgery tested positive for coronavirus elevated white count minimal interstitial changes on chest x-ray chemistries reviewed white count is declined out coronavirus infection saturation satisfactory patient has been ambulating patient is afebrile reviewed discharge no treatment indicated for coronavirus no antibiotics necessary (2) Hypokalemia Current Visit: Yes Status: Acute Plan: Patient is on chlorthalidone DC changed to another antihypertensive agent potassium replacement
[2021-11-28] MEDS: CYANOCOBALAMIN 1,000 MCG TAB PO SCH (09:05)
== END 2021-11-28 09:55 | disposition home or self-care (01) ==
LOC: OR 09:38 → 2ND 17:00 → OR 11-28 09:55
PROVIDERS: ATTEND Obstetrics & Gynecology
PROC: 0JQC0ZZ Repair Pelvic Region Subcutaneous Tissue and Fascia, Open Approach (ICD-10-PCS; 2021-11-26)
PROC: 0HQ9XZZ Repair Perineum Skin, External Approach (ICD-10-PCS; 2021-11-26)
PROC: 0TSD0ZZ Reposition Urethra, Open Approach (ICD-10-PCS; 2021-11-26)
PROC: 0ULG7ZZ Occlusion of Vagina, Via Natural or Artificial Opening (ICD-10-PCS; principal; 2021-11-26 12:30)
DX: N81.3 Complete uterovaginal prolapse (principal); N39.3 Stress incontinence (female) (male); N81.81 Perineocele; U07.1 COVID-19; F03.90 Unspecified dementia, unspecified severity, without behavioral disturbance, psychotic disturbance, mood disturbance, and anxiety; I10 Essential (primary) hypertension; E78.5 Hyperlipidemia, unspecified; F20.9 Schizophrenia, unspecified; R05.9 Cough, unspecified; G93.40 Encephalopathy, unspecified; E87.6 Hypokalemia; G89.18 Other acute postprocedural pain
CPT/HCPCS: 57120; 57250; 57288; 85025 ×2; 80048 ×3; 36415 ×4; 86900; 86850; 85610; 86901; 85730; 71045; 94010; 87811; J2704; J1100 ×2; J1644; J2543; J3010; J0690 ×3; J7120 ×2; J2405; J2250

== ENCOUNTER 2023-03-18 14:42 | Emergency (ER) | payer MEDICARE, OTHER ==
[2023-03-18] MEDS ORDERED: HYDROCODONE/APAP 5/325 MG TAB ONE (15:19)
[2023-03-18 15:33] LABS: Absolute Lymphocytes (CBC) 0.7 K/uL (0.7-4.9); Hematocrit 42.1 % (36.0-45.0); Lymphocytes % 4.6 % (15.3-44.8); MCV 92.2 fL (80-100); MPV 7.5 fL (7.6-11.3); Platelets 298 thou/uL (152-406); RBC Red Blood Cell Count 4.56 M/uL (3.86-4.86)
--- NOTE | 2023-03-18 15:43 | RAD REPORT ---
EXAM DESCRIPTION: RAD - Chest Single View - 03/18/2023 3:35 pm CLINICAL HISTORY: near syncope Chest pain. COMPARISON: Chest Single View dated 11/27/2021; Chest Single View dated 11/28/2020; Chest Pa And Lat ( 2 Views) dated 11/14/2020; Chest Single View dated 08/28/2020 FINDINGS: Portable technique limits examination quality. The lungs are emphysematous but grossly clear. The heart is normal in size. No displaced fractures. IMPRESSION: No acute intrathoracic process suspected.
--- NOTE | 2023-03-18 15:49 | RAD REPORT ---
EXAM DESCRIPTION: RAD - Knee Left 3 View - 03/18/2023 3:35 pm CLINICAL HISTORY: PAIN COMPARISON: No comparisons FINDINGS: Prominent diffuse osteopenia. Mild narrowing of the medial joint compartment space. No acu te fracture or dislocation seen.
[2023-03-18 15:52] LABS: Albumin 3.1 g/dL (3.4-5.0); Bilirubin Direct 0.3 mg/dL (0-0.2); Bilirubin Indirect, Calculated 0.3 mg/dL (0.2-0.8); Bilirubin Total 0.6 mg/dL (0.2-1.0); Potassium 3.1 mEq/L (3.5-5.1); Protein, Total 7.8 g/dL (6.4-8.2); Troponin High Sensitivity 4.7 pg/mL (<58.9)
[2023-03-18 16:14] LABS: Blood Morphology Comment NOT SEEN (NOT SEEN); Platelet Estimate ADEQ; White Blood Cell Scan OK (OK)
[2023-03-18 16:24] LABS: Specific Gravity 1.011 (1.005-1.030); Urine Bacteria <20 /HPF (<20); Urine Bilirubin NEGATIVE (Negative); Urine Blood Negative (Negative); Urine Clarity Extremely Turbid (Clear); Urine Color Light-Yellow (Yellow); Urine Glucose NEGATIVE (Negative); Urine Mucus Slight /HPF (None Seen); Urine Protein NEGATIVE (Negative); Urine RBC <5 /HPF (None Seen); Urine Urobilinogen Normal (Normal)
--- NOTE | 2023-03-18 17:07 | EDPHYS ---
Physician Documentation [facility] Name: Haritha Mensah Age: 77 yrs Sex: Female : 1945 Arrival Date: 03/18/2023 Time: 14:42 Bed 15 Private MD: ED Physician Gustavo Atkinson HPI: 03/18 17:22 This 77 yrs old Female presents to ER via EMS with complaints of Fall Injury. rt 17:22 Patient with history of dementia presents to the ED following a fall, injuring her left rt knee. She denies hitting her head. Family stated that her eyes rolled back for a brief second time but she did not completely lose consciousness. Other than left knee pain, the patient denies any complaints at this time. Pain is aching nature, nonradiating, moderate severity, no other aggravating relieving factors.. Historical: - Allergies: 14:57 No Known Allergies; kc6 - PMHx: 14:57 Hyperlipidemia; Schizophrenia; Alzheimer's disease; Dementia; Depressive disorder; kc6 Hypertensive disorder; Deep vein thrombosis; - PSHx: 14:57 hip replacement; kc6 - Immunization history:: Adult Immunizations unknown. - Social history:: Smoking status: unknown. - Family history:: not pertinent. ROS: 17:22 Constitutional: Negative for fever, chills, and weight loss, Cardiovascular: Negative rt for chest pain, palpitations, and edema, Respiratory: Negative for shortness of breath, cough, wheezing, and pleuritic chest pain, Abdomen/GI: Negative for abdominal pain, nausea, vomiting, diarrhea, and constipation, Skin: Negative for injury, rash, and discoloration, 17:22 MS/extremity: Positive for contusion, pain, 17:22 Neuro: Positive for near syncope, Negative for altered mental status, Exam: 17:22 Constitutional: This is a well developed, well nourished patient who is awake, alert, rt and in no acute distress. Head/Face: Normocephalic, atraumatic. Chest/axilla: Normal chest wall appearance and motion. Nontender with no deformity. No lesions are appreciated. Cardiovascular: Regular rate and rhythm with a normal S1 and S2. No gallops, murmurs, or rubs. Normal PMI, no JVD. No pulse deficits. Respiratory: Lungs have equal breath sounds bilaterally, clear to auscultation and percussion. No rales, rhonchi or wheezes noted. No increased work of breathing, no retractions or nasal flaring. Abdomen/GI: Soft, non-tender, with normal bowel sounds. No distension or tympany. No guarding or rebound. No evidence of tenderness throughout. Skin: Warm, dry with normal turgor. Normal color with no rashes, no lesions, and no evidence of cellulitis. Neuro: Awake and alert, GCS 15, oriented to person, place, time, and situation. Cranial nerves II-XII grossly intact. Motor strength 5/5 in all extremities. Sensory grossly intact. Cerebellar exam normal. Normal gait. 17:22 ECG was reviewed by the Attending Physician. 17:22 Musculoskeletal/extremity: Abrasion with contusion to the left knee, no focal areas of tenderness, no deformity. Vital Signs: 14:56 BP 126 / 68; Pulse 106; Resp 18 S; Temp 97.6(O); Pulse Ox 99% on R/A; Weight 74.84 kg kc6 (R); Height 5 ft. 5 in. (R); 16:15 Pulse 104; Resp 17 S; Pulse Ox 98% on R/A; kc6 16:16 BP 133 / 56; kc6 14:56 Body Mass Index 27.46 (74.84 kg, 165.1 cm) kc6 MDM: 14:57 Patient medically screened. rt 17:22 Differential diagnosis: Your syncope, dysrhythmia, electrolyte disturbance, rt dehydration, contusion, fracture. Data reviewed: vital signs, nurses notes, lab test result(s), EKG, radiologic studies. Consideration of Admission/Observation Escalation of care including admission/observation considered. No evidence of infection, leukocytosis and tachycardia likely spurious, patient is afebrile, I do not suspect an infectious etiology. Does not require admission for septic workup.. I considered the following discharge prescriptions or medication management in the emergency department Medications were administered in the Emergency Department. See MAR. Independent interpretation of the following test(s) in the Emergency Department X-Ray: My interpretation is No fracture seen on interpretation of x-ray images. Test considered but Not performed: CT: No head trauma, CT head is not needed.. Care significantly affected by the following chronic conditions: Dementia. Counseling: I had a detailed discussion with the patient and/or guardian regarding the historical points, exam findings, and any diagnostic results supporting the discharge/admit diagnosis, lab results, radiology results, the need for outpatient follow up, to return to the emergency department if symptoms worsen or persist or if there are any questions or concerns that arise at home. Response to treatment: the patient's symptoms have markedly improved after treatment. 03/18 14:56 Order name: Basic Metabolic Panel; Complete Time: 16:59 rt 03/18 14:56 Order name: CBC with Diff; Complete Time: 16:59 rt 03/18 14:56 Order name: LFT's; Complete Time: 16:59 rt 03/18 14:56 Order name: Magnesium; Complete Time: 16:59 rt 03/18 14:56 Order name: Troponin HS; Complete Time: 16:59 rt 03/18 16:14 Order name: CBC Smear Scan; Complete Time: 16:59 EDMS 03/18 16:17 Order name: Urinalysis W/Microscopic; Complete Time: 16:59 EDMS 03/18 14:56 Order name: XRAY Chest (1 view); Complete Time: 15:51 rt 03/18 14:56 Order name: Knee Left 3 View XRAY; Complete Time: 15:51 rt 03/18 14:56 Order name: EKG; Complete Time: 14:57 rt 03/18 14:56 Order name: Cardiac monitoring; Complete Time: 15:13 rt 03/18 14:56 Order name: EKG - Nurse/Tech; Complete Time: 15:13 rt 03/18 14:56 Order name: IV Saline Lock; Complete Time: 15:13 rt 03/18 14:56 Order name: Labs collected and sent; Complete Time: 15:38 rt 03/18 14:56 Order name: O2 Per Protocol; Complete Time: 15:01 rt 03/18 14:56 Order name: O2 Sat Monitoring; Complete Time: 15:01 rt EC:22 Rate is 108 beats/min. Rhythm is regular, Sinus tachycardia with No ectopy. QRS [place] is rt Normal. MA interval is normal. QRS interval is normal. QT interval is normal. No Q waves. Administered Medications: 15:13 Drug: HYDROcodone-acetaminophen PO 5 mg-325 mg 1 tabs PO once Route: PO; kc6 16:16 Follow up: Response: No adverse reaction; Pain is decreased; RASS: Alert and Calm (0) kc6 Disposition Summary: 03/18/23 17:06 Discharge Ordered Notes: Location: Home rt Problem: new rt Symptoms: have improved rt Condition: Stable rt Diagnosis - Left knee contusion rt - Hypokalemia rt Followup: rt - With: Private Physician - When: 2 - 3 days - Reason: Discharge Instructions: - Discharge Summary Sheet rt - Contusion rt - Hypokalemia rt Forms: - Medication Reconciliation Form rt - Thank You Letter rt - Antibiotic Education rt - Prescription Opioid Use rt - Patient Portal Instructions rt - Leadership Thank You Letter rt Prescriptions: - Potassium Chloride 20 meq Oral Packet - take 1 packet ORAL route once daily 1 packet in 6 (six) ounces of water or rt juice; Take after meal; 5 packet; Refills: 0, Product Selection Permitted Signatures: Dispatcher [employer] Araceli Andrews RN RN kc6 Gustavo Atkinson MD MD rt
--- NOTE | 2023-03-18 17:07 | ER ---
Nurse's Notes [facility] Name: Haritha Mensah Age: 77 yrs Sex: Female : 1945 Arrival Date: 03/18/2023 Time: 14:42 Bed 15 Private MD: Diagnosis: Left knee contusion;Hypokalemia Presentation: 03/18 14:56 Chief complaint: EMS states: pt fell once this AM at 0830 and again at 1300. denies kc6 LOC. daughter reports her eyes rolled into the back of her head and she became limp. BGL en route 159. Coronavirus screen: At this time, the client does not indicate any symptoms associated with coronavirus-19. Ebola Screen: No symptoms or risks identified at this time. Initial Sepsis Screen: Does the patient meet any 2 criteria? No. Patient's initial sepsis screen is negative. Does the patient have a suspected source of infection? No. Patient's initial sepsis screen is negative. Risk Assessment: Do you want to hurt yourself or someone else? Patient reports no desire to harm self or others. Onset of symptoms was March 18, 2023. 14:56 Method Of Arrival: EMS kc6 14:56 Acuity: OFE 3 kc6 Triage Assessment: 14:57 General: Appears in no apparent distress. comfortable, Behavior is calm, cooperative, kc6 appropriate for age. Pain: Complains of pain in left knee. EENT: No signs and/or symptoms were reported regarding the EENT system. Neuro: Level of Consciousness is awake, alert, obeys commands, Oriented to person, Appropriate for age. Cardiovascular: Capillary refill < 3 seconds. Respiratory: Airway is patent Trachea midline Respiratory effort is even, unlabored, Respiratory pattern is regular, symmetrical. GI: No signs and/or symptoms were reported involving the gastrointestinal system. : No signs and/or symptoms were reported regarding the genitourinary system. Derm: Skin is intact, is healthy with good turgor, Skin is pink, warm \T\ dry. Musculoskeletal: No signs and/or symptoms reported regarding the musculoskeletal system. Circulation, motion, and sensation intact. Capillary refill < 3 seconds, Range of motion: intact in all extremities. Injury Description: Abrasion sustained to left elbow, right knee and left knee. Historical: - Allergies: 14:57 No Known Allergies; kc6 - PMHx: 14:57 Hyperlipidemia; Schizophrenia; Alzheimer's disease; Dementia; Depressive disorder; kc6 Hypertensive disorder; Deep vein thrombosis; - PSHx: 14:57 hip replacement; kc6 - Immunization history:: Adult Immunizations unknown. - Social history:: Smoking status: unknown. - Family history:: not pertinent. Screenin:00 [facility] ED Fall Risk Assessment (Adult) History of falling in the last 3 months, kc6 including since admission Yes- fall prone (multiple falls) (3 pts) Confusion or Disorientation Yes (5 pts) Intoxicated or Sedated No (0 pts) Impaired Gait Yes (1 pt) Mobility Assist Device Used Yes (1 pt) Altered Elimination No (0 pt) Score/Fall Risk Level 3 or more points = High Risk. Abuse screen: Denies threats or abuse. Denies injuries from another. Nutritional screening: No deficits noted. Tuberculosis screening: No symptoms or risk factors identified. Assessment: 15:00 Reassessment: please see triage assessment. kc6 16:15 Reassessment: Patient appears in no apparent distress at this time. No changes from kc6 previously documented assessment. Patient and/or family updated on plan of care and expected duration. Pain level reassessed. Vital Signs: 14:56 BP 126 / 68; Pulse 106; Resp 18 S; Temp 97.6(O); Pulse Ox 99% on R/A; Weight 74.84 kg kc6 (R); Height 5 ft. 5 in. (R); 16:15 Pulse 104; Resp 17 S; Pulse Ox 98% on R/A; kc6 16:16 BP 133 / 56; kc6 14:56 Body Mass Index 27.46 (74.84 kg, 165.1 cm) [facility] ED Course: 14:56 Patient arrived in ED. kc6 14:56 Gustavo Atkinson MD is Attending Physician. rt 14:57 Triage completed. kc6 14:57 Arm band placed on. kc6 15:00 Patient maintains SpO2 saturation greater than 95% on room air. kc6 15:01 Araceli Lal, YADIRA is Primary Nurse. kc6 15:01 Patient has correct armband on for positive identification. Bed in low position. Call [facility] light in reach. Side rails up X2. Adult w/ patient. Client placed on continuous cardiac and pulse oximetry monitoring. NIBP monitoring applied. 15:37 XRAY Chest (1 view) In Process Unspecified. EDMS 15:37 Knee Left 3 View XRAY In Process Unspecified. EDMS 16:15 Straight cath inserted, using sterile technique, 16 Fr. Specimen obtained. Returned kc6 clear yellow urine. Patient tolerated well. 16:16 [facility] Sent. kc6 17:18 No provider procedures requiring assistance completed. IV discontinued, intact, kc6 bleeding controlled, No redness/swelling at site. Pressure dressing applied. Administered Medications: 15:13 Drug: HYDROcodone-acetaminophen PO 5 mg-325 mg 1 tabs PO once Route: PO; kc6 16:16 Follow up: Response: No adverse reaction; Pain is decreased; RASS: Alert and Calm (0) kc6 Medication: 17:19 VIS not applicable for this client. kc6 Outcome: 17:06 Discharge ordered by . rt 17:18 Discharged to home via wheelchair, with family, kc6 17:18 Condition: good 17:18 Discharge instructions given to family, Instructed on discharge instructions, follow up and referral plans. medication usage, Demonstrated understanding of instructions, follow-up care, medications, Prescriptions given X 1, 17:19 Patient left the ED. kc6 Signatures: Dispatcher [employer] KOLBYMS Araceli Lal RN RN kc6 Gustavo Atkinson MD MD rt
[2023-03-18 19:23] VITALS: TEMP 97.6
[2023-03-18 19:24] VITALS: O2SAT 98
[2023-03-18 19:25] VITALS: BP 133/56
== END 2023-03-18 17:19 | disposition home or self-care (01) ==
LOC: ER 14:42
DX: S80.02XA Contusion of left knee, initial encounter (principal); E87.6 Hypokalemia; I10 Essential (primary) hypertension; G30.9 Alzheimer's disease, unspecified; F02.80 Dementia in other diseases classified elsewhere, unspecified severity, without behavioral disturbance, psychotic disturbance, mood disturbance, and anxiety
CPT/HCPCS: 36415; 51702; 71045; 80048; 80076; 81001; 83735; 84484; 85025; 93005; 99285